=== PATIENT | female | born 1975 | race Caucasian/White ===

== ENCOUNTER 2021-12-27 07:49 | Outpatient (CLI) | payer BC, SELFPAY | END 2021-12-27 07:50 | disposition home or self-care (01) | LOC: WOUND 07:50 | PROVIDERS: PCP Physician Assistant Medical; Visit Provider Nurse Practitioner Family | DX: E11.621 Type 2 diabetes mellitus with foot ulcer (principal); E11.40 Type 2 diabetes mellitus with diabetic neuropathy, unspecified; L97.422 Non-pressure chronic ulcer of left heel and midfoot with fat layer exposed; Z79.84 Long term (current) use of oral hypoglycemic drugs | CPT/HCPCS: 11042 ==

== ENCOUNTER 2022-01-03 07:55 | Outpatient (CLI) | payer BC, SELFPAY | END 2022-01-03 07:56 | disposition home or self-care (01) | LOC: WOUND 07:55 | PROVIDERS: PCP Physician Assistant Medical; Visit Provider Surgery | DX: E11.621 Type 2 diabetes mellitus with foot ulcer (principal); E11.40 Type 2 diabetes mellitus with diabetic neuropathy, unspecified; L97.422 Non-pressure chronic ulcer of left heel and midfoot with fat layer exposed; Z79.84 Long term (current) use of oral hypoglycemic drugs | CPT/HCPCS: 99212 ==

== ENCOUNTER 2022-01-10 08:15 | Outpatient (CLI) | payer BC, SELFPAY | END 2022-01-10 08:16 | disposition home or self-care (01) | LOC: WOUND 08:15 | PROVIDERS: PCP Physician Assistant Medical; Visit Provider Surgery | DX: E11.621 Type 2 diabetes mellitus with foot ulcer (principal); E11.40 Type 2 diabetes mellitus with diabetic neuropathy, unspecified; L97.422 Non-pressure chronic ulcer of left heel and midfoot with fat layer exposed | CPT/HCPCS: 99212 ==

== ENCOUNTER 2022-02-16 13:58 | Outpatient (CLI) | payer BC, SELFPAY ==
[2022-02-16 07:36] LABS: Hematocrit 35.2 % (33.0-51.0); Hemoglobin* 12.3 gm/dL (12.0-16.0); Mean Corpuscular HGB Conc 35 gm/dL (32-36); Mean Corpuscular Hemoglobin 31 pg (26-34); Mean Corpuscular Volume 88 fL (80-100); Platelet Count* 254 K/uL (140-440); Red Blood Count 4.01 m/uL (4.00-5.20); White Blood Count* 6.16 K/uL (4.50-11.00)
[2022-02-16 07:59] LABS: Hemoglobin A1C* 7.8 % (0-5.6)
[2022-02-16 08:00] LABS: Slide Review Reflex No
[2022-02-16 12:43] LABS: Chloride* 101 mmol/L (96-114); Potassium* 4.4 mmol/L (3.6-5.1); Sodium* 137 mmol/L (135-149)
[2022-02-16 12:45] LABS: Cholesterol* 120 mg/dL (90-199); Creatinine* 0.7 mg/dL (0.5-1.5); Estimated Glomerular Filt Rate 107 ml/min
[2022-02-16 12:46] LABS: Blood Urea Nitrogen* 14 mg/dL (5-24); Carbon Dioxide* 23 mmol/L (20-32); Glucose* 288 mg/dL (60-115); HDL Cholesterol* 25 mg/dL (>=50); LDL Cholesterol Calculated 19 mg/dL (<100); Triglycerides* 379 mg/dL (40-149)
[2022-02-16 13:17] LABS: Creatinine Urine 135.1 mg/dL
[2022-02-16 13:21] LABS: Microalbumin Creatinine Ratio 40 mg/g (0-30); Microalbumin Urine 6 mg/dL
== END 2022-02-16 13:59 | disposition home or self-care (01) ==
PROVIDERS: PCP Physician Assistant Medical; Visit Provider Physician Assistant Medical
DX: Z00.00 Encounter for general adult medical examination without abnormal findings (principal); E13.9 Other specified diabetes mellitus without complications; E03.9 Hypothyroidism, unspecified; Z13.6 Encounter for screening for cardiovascular disorders
CPT/HCPCS: 80048; 80061; 82043; 82570; 83036; 84443; 85027

== ENCOUNTER 2023-03-11 08:03 | Outpatient (CLI) | payer BC, SELFPAY | END 2023-03-11 08:04 | disposition home or self-care (01) | LOC: NFLDREF 03-13 02:07 | PROVIDERS: PCP Physician Assistant Medical; Referring Provider Physician Assistant Medical; Visit Provider Physician Assistant Medical | DX: E03.9 Hypothyroidism, unspecified (principal); E11.9 Type 2 diabetes mellitus without complications; E78.1 Pure hyperglyceridemia; I10 Essential (primary) hypertension; F41.9 Anxiety disorder, unspecified | CPT/HCPCS: 80053; 80061; 82043; 82570; 84443; 84481 ==

== ENCOUNTER 2023-07-07 09:39 | Emergency (ER) | payer BC, SELFPAY ==
[2023-07-07 09:44] VITALS: BP 146/88; PULSE 108; RESP 20; TEMP 36.5; O2SAT 98; BMI 29.6
--- NOTE | 2023-07-07 09:58 | CRLHL7_ITS ---
For Patients: As a result of the Century Cures Act, medical imaging exams and procedure reports are released immediately into your electronic medical record. You may view this report before your referring provider. If you have questions, please contact your health care provider. HISTORY: Right upper quadrant abdominal pain. TECHNIQUE: Limited abdominal ultrasound. COMPARISON: No prior. FINDINGS: Pancreas is not well seen secondary to bowel gas. There is fatty infiltration of the liver. Liver is enlarged measuring 20 cm. No focal liver mass is apparent. The extrahepatic bile duct measures 7 mm which is borderline mildly dilated. No intrahepatic biliary ductal dilatation is present. No shadowing gallstones. Minimal sludge is present within the gallbladder lumen. The gallbladder wall thickness is within normal limits. Gallbladder mildly distended. No surrounding fluid. Right kidney unremarkable. No abdominal ascites. IMPRESSION: 1. Minimal sludge within the gallbladder with gallbladder distention. No wall thickening or surrounding fluid. 2. Borderline slightly dilated extrahepatic bile duct measuring 7 mm. No intrahepatic biliary ductal dilatation. 3. Enlarged, fatty infiltrated liver. Dictated by Jake Hanson MD @ 07/07/2023 11:46:01 AM Dictated by: Jake Hanson MD @ 07/07/2023 11:46:07 (Electronically Signed)
--- NOTE | 2023-07-07 10:00 | ED.GENADULT ---
HPI - General Adult General Chief complaint: Abdominal Pain Stated complaint: Abdominal pain Time Seen by Provider: 07/07/23 09:49 History of Present Illness HPI narrative: Patient is a 48 year white female that is had a in the past but no other intra-abdominal surgery presents with upper abdominal pain since last night. She went to bed after she ate pizza and subsequent developed some epigastric and bilateral pain right greater than left in her upper abdomen. Radiates through to her back. She has had no fever, chills, jaundice. Patient denies change in her bowel color or urine. 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 Patient is also hypothyroid. Related Data Home Medications Medication Instructions Recorded Confirmed aspirin 81 mg tablet,delayed 81 mg PO QDAY 02/21/22 07/07/23 release cholecalciferol (vitamin D3) 25 25 mcg PO DAILY 09/13/22 07/07/23 mcg (1,000 unit) tablet Previous Rx's Medication Instructions Recorded lisinopril 20 mg tablet See Rx Instructions .Route 10/10/22 .COMPLEX #90 tabs dulaglutide 1.5 mg/0.5 mL 1.5 mg (0.5 mL) subcut QWEEK 3 12/06/22 subcutaneous pen injector months #6.5 mL (Trulicity) metformin 500 mg tablet,extended See Rx Instructions .Route 12/06/22 release 24 hr .COMPLEX #360 tabs gabapentin 600 mg tablet 600 mg PO QDAY #90 tabs 12/13/22 dulaglutide 3 mg/0.5 mL 3 mg (0.5 mL) subcut QWEEK 3 03/12/23 subcutaneous pen injector months #6.5 mL (Trulicity) peg 3350-electrolytes 236 240 ml PO Q10M #4,000 mL 03/13/23 gram-22.74 gram-6.74 gram-5.86 gram solution (Golytely) Synthroid 88 mcg tablet 88 mcg PO QDAY #90 tabs 03/14/23 (levothyroxine) glipizide 5 mg tablet, extended 5 mg PO QDAY #90 tabs 06/10/23 release 24 hr peg 3350-electrolytes 236 4,000 ml PO DIRECTED #1 mL 07/03/23 gram-22.74 gram-6.74 gram-5.86 gram solution (Golytely) peg 3350-electrolytes 236 240 ml PO ONCE #4,000 mL 07/03/23 gram-22.74 gram-6.74 gram-5.86 gram solution (Golytely) Allergies Allergy/AdvReac Type Severity Reaction Status Date / Time Sulfa Antibiotics Allergy Severe Hives Uncoded 03/12/23 08:29 Sulfamethoxazole / Allergy Severe Hives Uncoded 03/12/23 08:29 trimethoprim Review of Systems Status of ROS: Reports: 6 or more systems reviewed and unremarkable except as noted in History and below [facility] Surgical History History of foot surgery ?Z98.890 - Other specified postprocedural states (ICD-10) History of reduction mammoplasty ?Z98.890 - Other specified postprocedural states (ICD-10) History of section ?Z98.891 - History of uterine scar from previous surgery (ICD-10) Family History Other Diabetes Thyroid disease Social History Narrative: , spouse Robert Non-smoker Smoking Status: Never smoker Do you use any of these nicotine containing products: None How often do you have a drink containing alcohol: monthly or less How often do you have six or more drinks on one occasion: Never AUDIT-C Alcohol total score: 1 Non-prescribed substance use: denies use Little interest or pleasure in doing things: not at all Feeling down, depressed, or hopeless: not at all Exam Narrative: Exam Narrative: Objective vital signs show elevated blood pressure, afebrile, O2 sat is 90% on room air Alert orient x3 nonjaundiced, HEENT is unremarkable Pulse regular Abdomen bowel sounds normoactive, mild epigastric but significant right upper quadrant tenderness , positive Bateman's sign. Lower abdominal exam is benign, no tenderness or masses Extremities are no edema neurologic nonfocal. Const: Vital Signs, click to edit/add: Vital Signs - 24 hr 07/07/23 09:44 Temperature 97.7 F Pulse Rate [Right Pulse Oximeter] 108 H Respiratory Rate 20 Blood Pressure [Ri ght Upper Arm] 146/88 H Pulse Oximetry 98 Oxygen Delivery Me thod Room Air Course Vital Signs Vital signs: Initial Vital Signs Temperature 97.7 F 07/07/23 09:44 Temperature Source Temporal Artery Scan 07/07/23 09:44 Pulse Rate 108 H 07/07/23 09:44 Pulse Rhythm Regular 07/07/23 09:44 Respiratory Rate 20 07/07/23 09:44 Blood Pressure 146/88 H 07/07/23 09:44 Blood Pressure Mean 107 H 07/07/23 09:44 Blood Pressure Position Sitting 07/07/23 09:44 Pulse Oximetry 98 07/07/23 09:44 Oxygen Delivery Method Room Air 07/07/23 09:44 Vital Signs Temperature 97.7 F 07/07/23 09:44 Pulse Rate 108 H 07/07/23 09:44 Respiratory Rate 20 07/07/23 09:44 Blood Pressure 146/88 H 07/07/23 09:44 Pulse Oximetry 98 07/07/23 09:44 Oxygen Delivery Method Room Air 07/07/23 09:44 Temperature 97.7 F 07/07/23 09:44 Pulse Rate 108 H 07/07/23 09:44 Respiratory Rate 20 07/07/23 09:44 Blood Pressure 146/88 H 07/07/23 09:44 Pulse Oximetry 98 07/07/23 09:44 Oxygen Delivery Method Room Air 07/07/23 09:44 Medications Administered Medications: Discontinued Medications Generic Name Dose Route Start Last Admin Trade Name Freq PRN Reason Stop Dose Admin Sodium Chloride 1,000 mls @ 6,000 mls/hr 07/07/23 10:00 07/07/23 11:22 0.9 % Sodium Chloride 1000 Ml IV 07/07/23 10:09 Infused .Q10M ENDER Infusion Lorazepam 0.5 mg 07/07/23 09:59 07/07/23 10:15 Lorazepam 2 Mg/Ml Inj IVP 07/07/23 10:00 0.5 mg ONCE ONE Administration Morphine Sulfate 2 mg 07/07/23 09:57 07/07/23 10:15 Morphine 4 Mg/Ml Inj IVP 07/07/23 09:58 2 mg ONCE ONE Administration Medical Decision Making MDM Narrative Medical decision making narrative: [age] year white female with a history of significant right upper quadrant and epigastric pain after eating last night. Pain is weaning a little bit at this point. She has no fevers or chills. I suspect she got biliary colic. Rule out cholecystitis. Patient will get an ultrasound, labs, will give IV fluid and pain medication and antiemetic. Surgical consult as necessary. Lab Data Labs: Lab Results 07/07/23 Range/Units 10:10 WBC 6.29 (4.50-11.00) K/uL RBC 4.20 (4.00-5.20) m/uL Hgb 12.6 (12.0-16.0) gm/dL Hct 36.5 (33.0-51.0) % MCV 87 (80-100) fL MCH 30 (26-34) pg MCHC 35 (32-36) gm/dL RDW Coeff of Adelita 15.0 (11.5-15.5) % Plt Count 246 (140-440) K/uL Neut % (Auto) 73.5 H (42.0-72.0) % Lymph % (Auto) 18.6 L (20-44) % [place] % (Auto) 5.9 (0.0-11.0) % Eos % (Auto) 1.0 (0.0-7.0) % Baso % (Auto) 0.5 (0.0-3.0) % Neut # (Auto) 4.60 (1.7-7.0) K/uL Lymph # (Auto) 1.20 (0.90-2.90) K/uL [place] # (Auto) 0.40 (0.00-0.90) K/UL Eos # (Auto) 0.06 (0.00-0.50) K/uL Baso # (Auto) 0.03 (0.00-0.30) K/uL Abs Immat Gran (auto) 0.03 (0.00-0.30) K/uL Imm/Tot Granulo (auto) 0.5 % Sodium 134 L (135-149) mmol/L Potassium 4.5 (3.6-5.1) mmol/L Chloride 100 (96-114) mmol/L Carbon Dioxide 21 (20-32) mmol/L Anion Gap 13 (7-15) mEq/L BUN 14 (5-24) mg/dL Creatinine 0.6 (0.5-1.5) mg/dL Estimated Creat Clear 114.41 Estimated GFR 110 ml/min Glucose 316 H (60-115) mg/dL Calcium 9.4 (8.4-10.6) mg/dL Total Bilirubin 2.0 H (0.1-1.5) mg/dL Direct Bilirubin 0.3 (0.0-0.5) mg/dL AST 115 H (12-35) U/L ALT 87 H (4-35) U/L Alkaline Phosphatase 103 (40-150) U/L C-Reactive Protein 0.7 (0.5-1.0) mg/dL Total Protein 8.1 (6.0-8.3) g/dL Albumin 4.9 (3.3-5.0) g/dL Amylase 47 (18-89) U/L HCG, Qual Negative (Negative) Discharge Plan Discharge Clinical Impression: Abdominal pain, acute, Biliary colic Patient Disposition: Home w/ Parent or Adult Condition: Improved Additional Instructions: Recommend follow-up with 1 of our general surgeons to discuss her gallbladder issue. Please give the number for the surgical clinic. Light activity and light diet for the next 48 hours. Would recommend he reschedule her colonoscopy given you been ill with this issue today. Return as needed. May take Tylenol or Advil as needed for discomfort. Surgical clinic - Activity Level: Light activity Discharge Diet: Full Liquid Diet Detail: Advance diet as tolerated a low-fat Prescriptions: No Action cholecalciferol (vitamin D3) 25 mcg (1,000 unit) tablet 25 mcg PO DAILY metformin 500 mg tablet extended release 24 hr See Rx Instructions .ROUTE .COMPLEX Qty: 360 1RF Dose Instruction: TAKE 4 TABLETS BY MOUTH DAILY Rx Instructions: TAKE 4 TABLETS BY MOUTH DAILY Trulicity 1.5 mg/0.5 mL pen injector 1.5 mg subcut QWEEK 90 Days Qty: 6.5 1RF aspirin 81 mg tablet,delayed release (DR/EC) 81 mg PO QDAY Patient Comments: TAKE 1 TABLET (81 MG) BY MOUTH ONCE DAILY WITH A MEAL. Trulicity 3 mg/0.5 mL pen injector 3 mg subcut QWEEK 90 Days Qty: 6.5 1RF lisinopril 20 mg tablet See Rx Instructions .ROUTE .COMPLEX Qty: 90 3RF Dose Instruction: TAKE 1 TABLET BY MOUTH DAILY. Rx Instructions: TAKE 1 TABLET BY MOUTH DAILY. gabapentin 600 mg tablet 600 mg PO QDAY Qty: 90 3RF peg 3350-electrolytes [Golytely] 236-22.74-6.74 -5.86 gram recon soln 240 ml PO Q10M Qty: 4000 0RF Rx Instructions: until fecal effluent is clear levothyroxine [Synthroid] 88 mcg tablet 88 mcg PO QDAY Qty: 90 0RF glipizide 5 mg tablet extended release 24hr 5 mg PO QDAY Qty: 90 0RF peg 3350-electrolytes [Golytely] 236-22.74-6.74 -5.86 gram recon soln 240 ml PO ONCE Qty: 4000 0RF Rx Instructions: until fecal effluent is clear peg 3350-electrolytes [Golytely] 236-22.74-6.74 -5.86 gram recon soln 4,000 ml PO DIRECTED Qty: 1 0RF Rx Instructions: 1 day prior to scopes, between 4 and 6 p.m., drink 8 oz glass every 15 minutes until half a gallon is gone. 6 hours prior to procedure, drink 8 oz glass every 15 minutes until second half gallon is gone. Follow Up/Referrals: Ramesh Castillo PA-C [Primary Care Provider] - Stand Alone Forms: [email or web address] Info Instructions
[2023-07-07] MEDS: 0.9 % SODIUM CHLORIDE 1000 ml 1,000 ML 6000 ML IV (10:10)
[2023-07-07 10:15] LABS: Basophils Absolute Auto 0.03 K/uL (0.00-0.30); Basophils Percent Auto 0.5 % (0.0-3.0); Eosinophils Absolute Auto 0.06 K/uL (0.00-0.50); Hematocrit 36.5 % (33.0-51.0); Hemoglobin* 12.6 gm/dL (12.0-16.0); Immature Granulocytes Abs Auto 0.03 K/uL (0.00-0.30); Immature Granulocytes Pct Auto 0.5 %; Lymphocytes Percent Auto 18.6 % (20-44); Mean Corpuscular HGB Conc 35 gm/dL (32-36); Mean Corpuscular Hemoglobin 30 pg (26-34); Mean Corpuscular Volume 87 fL (80-100); Monocytes Percent Auto 5.9 % (0.0-11.0); Neutrophils Percent Auto 73.5 % (42.0-72.0); Platelet Count* 246 K/uL (140-440); White Blood Count* 6.29 K/uL (4.50-11.00)
[2023-07-07] MEDS: MORPHINE 4 MG/ML INJ 2 MG IVP (10:15)
[2023-07-07] MEDS: LORazepam 2 MG/ML inj 0.5 MG IVP (10:15)
[2023-07-07 10:19] LABS: Slide Review Reflex No
[2023-07-07 10:33] LABS: Albumin* 4.9 g/dL (3.3-5.0); Chloride* 100 mmol/L (96-114)
[2023-07-07 10:34] LABS: Potassium* 4.5 mmol/L (3.6-5.1); Sodium* 134 mmol/L (135-149)
[2023-07-07 10:36] LABS: Amylase* 47 U/L (18-89); Anion Gap 13 mEq/L (7-15); Aspartate Amino Transferase* 115 U/L (12-35); Bilirubin Direct* 0.3 mg/dL (0.0-0.5); Blood Urea Nitrogen* 14 mg/dL (5-24); Carbon Dioxide* 21 mmol/L (20-32); Creatinine* 0.6 mg/dL (0.5-1.5); Est. Creatinine Clearance* 114.41; Estimated Glomerular Filt Rate 110 ml/min; HCG Qualitative Serum* Negative (Negative); Total Protein* 8.1 g/dL (6.0-8.3)
[2023-07-07 10:37] LABS: Alanine Aminotransferase* 87 U/L (4-35); Alkaline Phosphatase* 103 U/L (40-150); Calcium* 9.4 mg/dL (8.4-10.6); Glucose* 316 mg/dL (60-115)
[2023-07-07 10:39] LABS: C Reactive Protein* 0.7 mg/dL (0.5-1.0)
== END 2023-07-07 11:45 | disposition home or self-care (01) ==
PROVIDERS: Emergency Provider Family Medicine; PCP Physician Assistant Medical
DX: R10.13 Epigastric pain (principal); K80.50 Calculus of bile duct without cholangitis or cholecystitis without obstruction
CPT/HCPCS: 36415; 76705; 80048; 80076; 82150; 84703; 85025; 86140; 96374; 96375; 99284; J2060; J2270; J7030

== ENCOUNTER 2023-07-18 15:24 | Outpatient (CLI) | payer BC, SELFPAY | END 2023-07-18 15:25 | disposition home or self-care (01) | PROVIDERS: PCP Physician Assistant Medical; Visit Provider Family Medicine | DX: Z01.818 Encounter for other preprocedural examination (principal); E78.5 Hyperlipidemia, unspecified; E03.9 Hypothyroidism, unspecified; I10 Essential (primary) hypertension; E78.1 Pure hyperglyceridemia | CPT/HCPCS: 80061; 83690; 84443 ==

== ENCOUNTER 2023-07-19 14:27 | Outpatient (CLI) | payer BC, SELFPAY ==
--- NOTE | 2023-07-19 14:30 | CRLHL7_ITS ---
For Patients: As a result of the Century Cures Act, medical imaging exams and procedure reports are released immediately into your electronic medical record. You may view this report before your referring provider. If you have questions, please contact your health care provider. INDICATION: Bile duct calculus without cholangitis TECHNIQUE: An MRCP, including 2D, 3D and maximum intensity projection imaging, was performed. COMPARISON: Right upper quadrant ultrasound of 07/07/2023 FINDINGS: The common bile duct is smoothly marginated and measures up to 6 mm in diameter. A 3 mm filling defect in the distal common bile duct is consistent with the stone. The intrahepatic ducts are normal in caliber and appear to branch and taper in a grossly normal fashion. The gallbladder is negative. The pancreatic duct is normal. Mild fatty change is demonstrated in the liver. The liver is normal in size and shape. The spleen, pancreas and adrenal glands are within normal limits. The kidneys are unremarkable except for a 5 mm right renal parenchymal cysts. No bowel abnormality, lymphadenopathy or free fluid is demonstrated. IMPRESSION: 1. Nonobstructing 3 mm distal common bile duct stone. 2. Mild fatty change in the liver. Dictated by Ken Love MD @ 07/22/2023 9:21:30 AM (Electronically Signed)
== END 2023-07-19 14:28 | disposition home or self-care (01) ==
PROVIDERS: PCP Physician Assistant Medical; Visit Provider Surgery
DX: K80.50 Calculus of bile duct without cholangitis or cholecystitis without obstruction (principal); K76.0 Fatty (change of) liver, not elsewhere classified
CPT/HCPCS: 74181

== ENCOUNTER 2023-07-22 11:23 | Inpatient (IN) | payer BC, SELFPAY ==
[2023-07-22] VITALS (20 sets, daily range): BP systolic 104–129; BP diastolic 63–84; PULSE 88–110; RESP 18–20; TEMP 36.6–37.1; O2SAT 91–97; BMI 28.9; BMI 28.1
--- NOTE | 2023-07-22 11:30 | ED.ABDPAIN ---
HPI - Abdominal Pain General Time Seen by Provider: 11:33 Date Seen: 07/22/23 Chief Complaint: Abdominal Pain Stated Complaint: Gallbladder pain Time Seen by Provider: 07/22/23 11:24 Source: patient and RN notes reviewed Mode of arrival: ambulatory Limitations: no limitations History of Present Illness HPI narrative: This 48-year-old female is coming in with upper abdominal pain, nausea vomiting and diarrhea with known biliary dysfunction. She is scheduled to have a cholecystectomy tomorrow, did have an MRI of her abdomen recently, has not heard back from the surgeon on the report. She states her pain is extreme, is not sleeping because of her abdominal pain. Did just try some broth last night, was vomiting within 10 minutes of taking this in. The pain usually intensifies and is severe by 3:00 a.m. in the morning. She has not slept. She will feel cold and sweaty and hot when the pain is severe and with the vomiting but has not necessarily noted any fever. She is also having episodes of diarrhea when the pain is severe. Patient was initially seen in the ER on July 07, thought to have biliary colic. She had an elevated total bilirubin of 2, an AST of 115, ALT of 87, normal amylase of 47. Abdominal ultrasound at that visit showed minimal sludge within the gallbladder with gallbladder distension. No wall thickening or surrounding fluid. Borderline slightly dilated extrahepatic bile duct measuring 7 mm. No intrahepatic biliary ductal dilation. Enlarged, fatty infiltrated liver. Patient had a follow-up with General surgery on July 17. MRCP was ordered at that time. This MRCP was done on July 19, was read on July 22. It did show nonobstructing 3 mm distal common bile duct stone. Mild fatty change in the liver. MD elicited complaint: abdominal pain Related Data Home Medications Medication Instructions Recorded Confirmed aspirin 81 mg tablet,delayed 81 mg PO QDAY 02/21/22 07/18/23 release cholecalciferol (vitamin D3) 25 25 mcg PO DAILY 09/13/22 07/18/23 mcg (1,000 unit) tablet Previous Rx's Medication Instructions Recorded lisinopril 20 mg tablet See Rx Instructions .Route 10/10/22 .COMPLEX #90 tabs metformin 500 mg tablet,extended See Rx Instructions .Route 12/06/22 release 24 hr .COMPLEX #360 tabs gabapentin 600 mg tablet 600 mg PO QDAY #90 tabs 12/13/22 dulaglutide 3 mg/0.5 mL 3 mg (0.5 mL) subcut QWEEK 3 03/12/23 subcutaneous pen injector months #6.5 mL (Trulicity) Synthroid 88 mcg tablet 88 mcg PO QDAY #90 tabs 03/14/23 (levothyroxine) glipizide 5 mg tablet, extended 5 mg PO QDAY #90 tabs 06/10/23 release 24 hr peg 3350-electrolytes 236 240 ml PO Q10M #4,000 mL 07/17/23 gram-22.74 gram-6.74 gram-5.86 gram solution (Golytely) Allergies Allergy/AdvReac Type Severity Reaction Status Date / Time Sulfa Antibiotics Allergy Severe Hives Uncoded 07/18/23 15:21 Sulfamethoxazole / Allergy Severe Hives Uncoded 07/18/23 15:21 trimethoprim Review of Systems Status of ROS Reports: 6 or more systems reviewed and unremarkable except as noted in History and below PFSH PFSH Surgical History History of foot surgery ?Z98.890 - Other specified postprocedural states (ICD-10) History of reduction mammoplasty ?Z98.890 - Other specified postprocedural states (ICD-10) History of section ?Z98.891 - History of uterine scar from previous surgery (ICD-10) Family History Other Diabetes Thyroid disease Social History Narrative: , spouse Robert Non-smoker Smoking Status: Never smoker Do you use any of these nicotine containing products: None How often do you have a drink containing alcohol: monthly or less How often do you have six or more drinks on one occasion: Never AUDIT-C Alcohol total score: 1 Non-prescribed substance use: denies use Little interest or pleasure in doing things: not at all Feeling down, depressed, or hopeless: not at all Exam Const: Vital Signs, click to edit/add: Vital Signs - 24 hr 07/22/23 11:26 07/22/23 11:38 07/22/23 11:59 Temperature 97.8 F Pulse Rate 102 H Pulse Rate [Pulse Oximeter] 110 H Respiratory Rate 20 Blood Pressure Blood Pressure [Ri ght Upper Arm] 106/64 Pulse Oximetry 96 97 93 Oxygen Delivery Me thod Room Air 07/22/23 12:00 07/22/23 12:01 07/22/23 12:02 Temperature Pulse Rate 101 H 100 100 Pulse Rate [Pulse Oximeter] Respiratory Rate Blood Pressure 118/75 Blood Pressure [Ri ght Upper Arm] Pulse Oximetry 95 95 94 Oxygen Delivery Me thod 07/22/23 12:30 07/22/23 13:00 07/22/23 13:01 Temperature Pulse Rate 99 102 H 99 Pulse Rate [Pulse Oximeter] Respiratory Rate Blood Pressure 104/64 Blood Pressure [Ri ght Upper Arm] Pulse Oximetry 95 93 92 Oxygen Delivery Me thod 07/22/23 13:30 07/22/23 14:00 07/22/23 14:01 Temperature Pulse Rate 98 98 97 Pulse Rate [Pulse Oximeter] Respiratory Rate Blood Pressure 111/72 Blood Pressure [Ri ght Upper Arm] Pulse Oximetry 91 95 96 Oxygen Delivery Me thod Documenting provider has reviewed patient's vital signs: yes Course Reevaluation(s) Time of Reevaluation #1: 12:21 Reevaluation #1: Patient's pain is much better, feeling better. Advised that her WBC is normal but other labs still pending at this time. Time of Reevaluation #2: 14:01 Consultations Consultation #1: Spoke with Dr. Campbell regarding this case. She was planning on doing intraoperative cholangiogram, felt this small 3mm stone is likely to pass. She plans on stopping over to see patient. Likely admit here for surgery tomorrow, will await labs. We have discussed imaging, she does not feel that there is any benefit at this time to any further imaging. Time: 11:43 Consultation #2: Did speak with on-call Dr. Bolaños in GI, right now Sujata/Michelle is on magenta status. We discussed the possibility of having her transfer for ERCP procedure only and then back to us for the cholecystectomy. They are going to work on that and get back to me. 2:05 p.m.: Dr. Elizabeth in GI will be able to take this patient for an ERCP tomorrow, she will transfer up there for the ERCP and then back to us for definitive management. We will keep her NPO. Dr. Bolaños has asked that we check an INR. Time: 13:34 Consultation #3: Our surgeon Dr. Campbell is aware of the plan, she does agree to have this patient go to [place] for an ERCP tomorrow, transfer back here after that and do definitive cholecystectomy when appropriate. I reviewed this with the patient. Have subsequently reviewed with the hospitalist Dr. Wells. She did request a lab add on for triglycerides as patient is still down here in the ED, did make sure that was added on. Patient did require 2 more mg IV morphine for return of pain. We will maintain her NPO. Time: 14:27 Vital Signs Vital signs: Initial Vital Signs Temperature 97.8 F 07/22/23 11:26 Temperature Source Temporal Artery Scan 07/22/23 11:26 Pulse Rate 110 H 07/22/23 11:26 Respiratory Rate 20 07/22/23 11:26 Blood Pressure 106/64 07/22/23 11:26 Blood Pressure Mean 78 07/22/23 11:26 Blood Pressure Position Sitting 07/22/23 11:26 Pulse Oximetry 96 07/22/23 11:26 Oxygen Delivery Method Room Air 07/22/23 11:26 Vital Signs Temperature 97.8 F 07/22/23 11:26 Pulse Rate 110 H 07/22/23 11:26 Respiratory Rate 20 07/22/23 11:26 Blood Pressure 106/64 07/22/23 11:26 Pulse Oximetry 96 07/22/23 11:26 Oxygen Delivery Method Room Air 07/22/23 11:26 Temperature 97.8 F 07/22/23 11:26 Pulse Rate 97 07/22/23 14:01 Respiratory Rate 20 07/22/23 11:26 Blood Pressure 111/72 07/22/23 14:01 Pulse Oximetry 96 07/22/23 14:01 Oxygen Delivery Method Room Air 07/22/23 11:26 Medications Administered Medications: Generic Name Dose Route Start Last Admin Trade Name Freq PRN Reason Stop Dose Admin Lactated Ringer's 1,000 mls @ 125 mls/hr 07/22/23 11:40 07/22/23 11:46 Lactated Ringers 1000 Ml IV 125 mls/hr .Q8H ENDER Administration Morphine Sulfate 2 mg 07/22/23 14:11 07/22/23 14:16 Morphine 2 Mg/Ml Inj IVP 07/22/23 14:12 2 mg ONCE ONE Administration Discontinued Medications Generic Name Dose Route Start Last Admin Trade Name Malik PRN Reason Stop Dose Admin Piperacillin Sod/Tazobactam 100 mls @ 200 mls/hr 07/22/23 13:55 07/22/23 14:05 Sod 3.375 gm/ Sodium Chloride IVPB 07/22/23 13:56 200 mls/hr ONCE ONE Administration Morphine Sulfate 4 mg 07/22/23 11:38 07/22/23 11:47 Morphine 4 Mg/Ml Inj IVP 07/22/23 11:39 4 mg ONCE ONE Administration Ondansetron HCl 4 mg 07/22/23 11:38 07/22/23 11:47 Ondansetron 2 Mg/Ml Inj IVP 07/22/23 11:39 4 mg ONCE ONE Administration MDM - Abdominal Pain Lab Data Attestation: I reviewed the patient's lab results. Labs: Lab Results 07/22/23 07/22/23 07/22/23 Range/Units 11:40 14:10 14:26 WBC 8.53 (4.50-11.00) K/uL RBC 4.32 (4.00-5.20) m/uL Hgb 13.0 (12.0-16.0) gm/dL Hct 38.0 (33.0-51.0) % MCV 88 (80-100) fL MCH 30 (26-34) pg MCHC 34 (32-36) gm/dL RDW Coeff of Adelita 14.4 (11.5-15.5) % Plt Count 269 (140-440) K/uL Neut % (Auto) 86.9 H (42.0-72.0) % Lymph % (Auto) 8.8 L (20-44) % [place] % (Auto) 3.5 (0.0-11.0) % Eos % (Auto) 0.4 (0.0-7.0) % Baso % (Auto) 0.2 (0.0-3.0) % Neut # (Auto) 7.40 H (1.7-7.0) K/uL Lymph # (Auto) 0.80 L (0.90-2.90) K/uL [place] # (Auto) 0.30 (0.00-0.90) K/UL Eos # (Auto) 0.03 (0.00-0.50) K/uL Baso # (Auto) 0.02 (0.00-0.30) K/uL Abs Immat Gran (auto) 0.02 (0.00-0.30) K/uL Imm/Tot Granulo (auto) 0.2 % Sodium 136 (135-149) mmol/L Potassium 4.6 (3.6-5.1) mmol/L Chloride 99 (96-114) mmol/L Carbon Dioxide 17 L (20-32) mmol/L Anion Gap 20 H (7-15) mEq/L BUN 27 H (5-24) mg/dL Creatinine 1.3 (0.5-1.5) mg/dL Estimated Creat Clear 52.81 Estimated GFR 50 ml/min Glucose 298 H (60-115) mg/dL Lactate 1.7 (0.5-1.9) mmol/L Calcium 10.1 (8.4-10.6) mg/dL Total Bilirubin 3.2 H (0.1-1.5) mg/dL Direct Bilirubin 0.9 H (0.0-0.5) mg/dL AST 591 H (12-35) U/L ALT 1213 H (4-35) U/L Alkaline Phosphatase 156 H (40-150) U/L C-Reactive Protein 1.3 H (0.5-1.0) mg/dL Total Protein 7.7 (6.0-8.3) g/dL Albumin 4.6 (3.3-5.0) g/dL Lipase 8282 H (23-300) U/L Lab Acknowledgement Test Added Test Added Critical Care Time Critical Care Time Critical Care Time: No Discharge Plan Discharge Prescriptions: No Action cholecalciferol (vitamin D3) 25 mcg (1,000 unit) tablet 25 mcg PO DAILY metformin 500 mg tablet extended release 24 hr See Rx Instructions .ROUTE .COMPLEX Qty: 360 1RF Dose Instruction: TAKE 4 TABLETS BY MOUTH DAILY Rx Instructions: TAKE 4 TABLETS BY MOUTH DAILY aspirin 81 mg tablet,delayed release (DR/EC) 81 mg PO QDAY Patient Comments: TAKE 1 TABLET (81 MG) BY MOUTH ONCE DAILY WITH A MEAL. Trulicity 3 mg/0.5 mL pen injector 3 mg subcut QWEEK 90 Days Qty: 6.5 1RF peg 3350-electrolytes [Golytely] 236-22.74-6.74 -5.86 gram recon soln 240 ml PO Q10M Qty: 4000 0RF Rx Instructions: Drink a glass of Golytely every 15 min until gone lisinopril 20 mg tablet See Rx Instructions .ROUTE .COMPLEX Qty: 90 3RF Dose Instruction: TAKE 1 TABLET BY MOUTH DAILY. Rx Instructions: TAKE 1 TABLET BY MOUTH DAILY. gabapentin 600 mg tablet 600 mg PO QDAY Qty: 90 3RF levothyroxine [Synthroid] 88 mcg tablet 88 mcg PO QDAY Qty: 90 0RF glipizide 5 mg tablet extended release 24hr 5 mg PO QDAY Qty: 90 0RF
[2023-07-22] MEDS: LACTATED RINGERS 1000 ML 1,000 ML 125 ML IV (11:46)
[2023-07-22] MEDS: ONDANSETRON 2 MG/ML inj 4 MG IVP (11:47)
[2023-07-22] MEDS: MORPHINE 4 MG/ML INJ IVP (11:47)
[2023-07-22 11:49] LABS: Basophils Absolute Auto 0.02 K/uL (0.00-0.30); Basophils Percent Auto 0.2 % (0.0-3.0); Eosinophils Absolute Auto 0.03 K/uL (0.00-0.50); Eosinophils Percent Auto 0.4 % (0.0-7.0); Immature Granulocytes Abs Auto 0.02 K/uL (0.00-0.30); Immature Granulocytes Pct Auto 0.2 %; Lymphocytes Percent Auto 8.8 % (20-44); Mean Corpuscular HGB Conc 34 gm/dL (32-36); Mean Corpuscular Hemoglobin 30 pg (26-34); Mean Corpuscular Volume 88 fL (80-100); Monocytes Percent Auto 3.5 % (0.0-11.0); Neutrophils Percent Auto 86.9 % (42.0-72.0); Platelet Count* 269 K/uL (140-440); RDW Coefficient of Variation % 14.4 % (11.5-15.5); Red Blood Count 4.32 m/uL (4.00-5.20); White Blood Count* 8.53 K/uL (4.50-11.00)
[2023-07-22 11:52] LABS: Slide Review Reflex No
[2023-07-22 12:20] LABS: Bilirubin Direct* 0.9 mg/dL (0.0-0.5)
[2023-07-22 12:24] LABS: C Reactive Protein* 1.3 mg/dL (0.5-1.0)
[2023-07-22 12:42] LABS: Albumin* 4.6 g/dL (3.3-5.0); Chloride* 99 mmol/L (96-114); Potassium* 4.6 mmol/L (3.6-5.1); Sodium* 136 mmol/L (135-149)
[2023-07-22 12:44] LABS: Creatinine* 1.3 mg/dL (0.5-1.5); Est. Creatinine Clearance* 52.81; Estimated Glomerular Filt Rate 50 ml/min
[2023-07-22 12:45] LABS: Alkaline Phosphatase* 156 U/L (40-150); Anion Gap 20 mEq/L (7-15); Aspartate Amino Transferase* 591 U/L (12-35); Bilirubin Total* 3.2 mg/dL (0.1-1.5); Blood Urea Nitrogen* 27 mg/dL (5-24); Calcium* 10.1 mg/dL (8.4-10.6); Carbon Dioxide* 17 mmol/L (20-32); Glucose* 298 mg/dL (60-115); Total Protein* 7.7 g/dL (6.0-8.3)
[2023-07-22 12:56] LABS: Lactate* 1.7 mmol/L (0.5-1.9)
[2023-07-22 12:59] LABS: Alanine Aminotransferase* 1213 U/L (4-35)
[2023-07-22 13:01] LABS: Lipase* 8282 U/L (23-300)
[2023-07-22] MEDS: PIPERACILLIN/TAZOBACTAM 3.375 GM in 0.9 % SODIUM CHLORIDE Mini-bag 100 ML IVPB ×2 (14:05→20:21)
[2023-07-22] MEDS: MORPHINE 2 MG/ML inj IVP (14:16)
[2023-07-22 14:26] LABS: INR 0.95 (0.91-1.10); Prothrombin Time 13.2 Seconds
--- NOTE | 2023-07-22 14:32 | ED.NURSE ---
Received call from nurse at [facility]. They request that the med/surg nurse that takes patient at our hospital call them to coordinate transport for patient up to [place] in the morning for ERCP. Phone number [phone]. Information will be given to med/surg nurse during report.
[2023-07-22 14:39] LABS: Triglycerides* 193 mg/dL (40-149)
--- NOTE | 2023-07-22 14:45 | ED.NURSE ---
Report given to med/surg nurse Mariela. Patient will go to room 279. All questions answered. All belongings with patient upon transfer. with patient at time of transfer.
[2023-07-22] MEDS: HYDROmorphone 0.5 mg/0.5 ml inj IVP (18:55)
[2023-07-22] MEDS: SODIUM CHLORIDE 0.9 % (FLUSH) 10 ML SYRINGE 5 ML IVF (18:57)
[2023-07-22] MEDS: LACTATED RINGERS 1000 ML 1,000 ML 150 ML IV (18:59)
[2023-07-22] MEDS: OXYCODONE 5 MG TABLET PO (20:20)
[2023-07-22] MEDS: MELATONIN 3 MG TABLET PO (20:20)
--- NOTE | 2023-07-22 20:25 | PM.IMHP1 ---
Hospitalist- H&P: HPI History of Present Illness Date Seen: 07/22/23 Chief complaint: Gallbladder pain Narrative: Lisa Alcazar is a 48 year old female who presented through the emergency room tonight for worsening right upper quadrant pain. It is now also associated with nausea and vomiting since last night. Her symptoms started on 07/06/2023 when she had eaten some pizza and went to bed. She then developed epigastric and upper abdominal pain, right greater than left. This pain radiated to her back. She had no fevers or chills with this. She was seen in the ER early the next day. The pain had worn off a little bit by that point. Right upper quadrant ultrasound at that time showed minimal sludge within the gallbladder with gallbladder distension. No wall thickening or surrounding fluid. Borderline slightly dilated extrahepatic bile duct measuring 7 mm. No intrahepatic biliary ductal dilatation. Enlarged fatty infiltrated liver. She was discharged from the emergency room and was asked to follow up with the Surgical Clinic. She saw Dr. Campbell on 07/17/2023. Dr. Campbell ordered an MRCP. This was done 07/19/2023 and showed a 3 mm nonobstructing distal common bile duct stone. Cholecystectomy surgery was planned for 07/23/2023. She saw Lisa Campbell in clinic for preop physical on 07/18/2023. An EKG done in that visit showed sinus tachycardia of 107 beats per minute, R waves in leads 3 and RVF, likely computer over read of inferior infarct, anteroseptal infarct might be correct except for lack of clinical concern. Due to patient's history of hypertension, diabetes, hypothyroidism and hypertriglyceridemia, the case was discussed with Cardiology as a curbside and the recommendation was to proceed with important but elective cholecystectomy based on functional capacity. In the last few days Lisa's abdominal pain has worsened and she is almost constantly nauseous. She has emesis with any intake of food or liquid. She started having more emesis last night after trying some broth. Her pain became very severe by 3 in the morning and she had not slept at all. She also noted cold sweats. She denies fever. Review of Systems Status of ROS: Reports: 10 or more systems reviewed and unremarkable except as noted in History and below [facility] Medical History (Updated 07/22/23 @ 21:49 by Ginny Wells MD) Abnormal EKG ?R94.31 - Abnormal electrocardiogram [ECG] [EKG] (ICD-10) Constipation ?K59.00 - Constipation, unspecified (ICD-10) Melanoma ?C43.9 - Malignant melanoma of skin, unspecified (ICD-10) Insomnia ?G47.00 - Insomnia, unspecified (ICD-10) Anxiety ?F41.9 - Anxiety disorder, unspecified (ICD-10) HTN (hypertension) ?I10 - Essential (primary) hypertension (ICD-10) Type 2 diabetes mellitus ?E11.9 - Type 2 diabetes mellitus without complications (ICD-10) Plantar wart of left foot ?B07.0 - Plantar wart (ICD-10) Hypertriglyceridemia ?E78.1 - Pure hyperglyceridemia (ICD-10) Hidradenitis ?L73.2 - Hidradenitis suppurativa (ICD-10) Diabetic neuropathy ?E11.40 - Type 2 diabetes mellitus with diabetic neuropathy, unspecified (ICD-10) Attention deficit disorder ?F98.8 - Other specified behavioral and emotional disorders with onset usually occurring in childhood and adolescence (ICD-10) Hypothyroidism ?E03.9 - Hypothyroidism, unspecified (ICD-10) Fatty liver ?K76.0 - Fatty (change of) liver, not elsewhere classified (ICD-10) Surgical History History of foot surgery ?Z98.890 - Other specified postprocedural states (ICD-10) History of reduction mammoplasty ?Z98.890 - Other specified postprocedural states (ICD-10) History of section ?Z98.891 - History of uterine scar from previous surgery (ICD-10) Family History Other Diabetes Thyroid disease Social History (Updated 07/22/23 @ 21:11 by Ginny Wells MD) Narrative: , spouse Robert is here with her today 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 Last had alcohol at the end of 2022. Denies recreational drugs. What is your current living situation?: I presently have a place to live Problems where you live: no known problems Problems where you live details: none In the past 12 months, utilities in danger of being shut off: no In past 12 months, lack of transportation kept you from medical appts, meetings, work, or getting things needed for daily living: no In the past 12 mos, have been you worried that your food would run out before you had money to buy more?: never true In the past 12 mos, the food you bought just didn't last and you didn't have money to buy more?: never true Highest level of school completed/degree received: Bachelor's degree Smoking Status: Never smoker Do you use any of these nicotine containing products: None How often do you have a drink containing alcohol: monthly or less How often do you have six or more drinks on one occasion: Never AUDIT-C Alcohol total score: 1 Non-prescribed substance use: denies use Caffeine: Yes How often does anyone, including family, friends and others, physically hurt you: never How often does anyone, including family, friends and others, insult or talk down to you: never How often does anyone, including family, friends and others, threaten you with harm: never How often does anyone, including family, friends and others, scream or curse at you: never Little interest or pleasure in doing things: not at all Feeling down, depressed, or hopeless: not at all service: No Meds Home Medications and Allergies Home Medications Medication Instructions Recorded Confirmed Type aspirin 81 mg tablet,delayed 81 mg PO DAILY 02/21/22 07/22/23 History release cholecalciferol (vitamin D3) 25 25 mcg PO DAILY 09/13/22 07/22/23 History mcg (1,000 unit) tablet gabapentin 600 mg tablet 600 mg PO HS 07/22/23 07/22/23 History glipizide 5 mg tablet, extended 5 mg PO HS 07/22/23 07/22/23 History release 24 hr levothyroxine 88 mcg tablet 88 mcg PO DAILY 07/22/23 07/22/23 History (Synthroid) metformin 500 mg tablet,extended 2,000 mg PO HS 07/22/23 07/22/23 History release 24 hr Home Medication Comments: Lisinopril 20 mg daily Trulicity 3 mg subcutaneously weekly Allergies Allergy/AdvReac Type Severity Reaction Status Date / Time Sulfa Antibiotics Allergy Severe Hives Uncoded 07/18/23 15:21 Sulfamethoxazole / Allergy Severe Hives Uncoded 07/18/23 15:21 trimethoprim Exam Narrative: Exam Narrative: General: No acute distress. Sleepy, easily arousable. Able to stay awake for conversation. Oriented x3. HEENT: Normocephalic atraumatic, pupils equally round and reactive to light and accommodation. Oropharynx clear. Mucous membranes are slightly dry. No cervical lymphadenopathy, thyromegaly or carotid bruits. No JVD. Cardiovascular: Regular rate and rhythm. No murmurs, gallops, or rubs. Chest: No increased work of breathing. Clear to auscultation bilaterally. No crackles or wheezes. Abdomen: Bowel sounds present. Obese, soft, nondistended, tender in the epigastrium and right upper quadrant, more so in the latter. Liver edge is tender. Bateman sign is positive. No hepatosplenomegaly or masses. Extremities: No edema, no cyanosis or clubbing. Skin: No jaundice, no pallor, no rashes. Const: Vital Signs, click to edit/add: Vital Signs - 24 hr 07/22/23 11:26 07/22/23 11:38 07/22/23 11:59 Temperature 97.8 F Pulse Rate 102 H Pulse Rate [Pulse Oximeter] 110 H Pulse Rate [Right Radial] Respiratory Rate 20 Blood Pressure Blood Pressure [Le ft Arm] Blood Pressure [Ri ght Upper Arm] 106/64 Pulse Oximetry 96 97 93 Oxygen Delivery Me thod Room Air 07/22/23 12:00 07/22/23 12:01 07/22/23 12:02 Temperature Pulse Rate 101 H 100 100 Pulse Rate [Pulse Oximeter] Pulse Rate [Right Radial] Respiratory Rate Blood Pressure 118/75 Blood Pressure [Le ft Arm] Blood Pressure [Ri ght Upper Arm] Pulse Oximetry 95 95 94 Oxygen Delivery Me thod 07/22/23 12:30 07/22/23 13:00 07/22/23 13:01 Temperature Pulse Rate 99 102 H 99 Pulse Rate [Pulse Oximeter] Pulse Rate [Right Radial] Respiratory Rate Blood Pressure 104/64 Blood Pressure [Le ft Arm] Blood Pressure [Ri ght Upper Arm] Pulse Oximetry 95 93 92 Oxygen Delivery Me thod 07/22/23 13:30 07/22/23 14:00 07/22/23 14:01 Temperature Pulse Rate 98 98 97 Pulse Rate [Pulse Oximeter] Pulse Rate [Right Radial] Respiratory Rate Blood Pressure 111/72 Blood Pressure [Le ft Arm] Blood Pressure [Ri ght Upper Arm] Pulse Oximetry 91 95 96 Oxygen Delivery Me thod 07/22/23 14:02 07/22/23 14:30 07/22/23 14:57 Temperature Pulse Rate 97 95 Pulse Rate [Pulse Oximeter] Pulse Rate [Right Radial] Respiratory Rate 18 Blood Pressure Blood Pressure [Le ft Arm] Blood Pressure [Ri ght Upper Arm] Pulse Oximetry 95 96 94 Oxygen Delivery Me thod Room Air 07/22/23 15:00 07/22/23 15:06 07/22/23 15:54 Temperature 98.8 F Pulse Rate Pulse Rate [Pulse Oximeter] Pulse Rate [Right Radial] 97 Respiratory Rate 18 20 Blood Pressure Blood Pressure [Le ft Arm] 105/63 Blood Pressure [Ri ght Upper Arm] Pulse Oximetry 94 96 Oxygen Delivery Me thod Room Air 07/22/23 19:19 Temperature 98.8 F Pulse Rate Pulse Rate [Pulse Oximeter] Pulse Rate [Right Radial] 97 Respiratory Rate 20 Blood Pressure Blood Pressure [Le ft Arm] 117/84 Blood Pressure [Ri ght Upper Arm] Pulse Oximetry 93 Oxygen Delivery Me thod Room Air Hospitalist - H&P: Result Labs Labs: Short CBC 07/22/23 Range/Units 11:40 WBC 8.53 (4.50-11.00) K/uL Hgb 13.0 (12.0-16.0) gm/dL Hct 38.0 (33.0-51.0) % Plt Count 269 (140-440) K/uL BMP 07/22/23 11:40 Sodium 136 Potassium 4.6 Chloride 99 Carbon Dioxide 17 L BUN 27 H Creatinine 1.3 Glucose 298 H Calcium 10.1 Liver Function 07/22/23 Range/Units 11:40 Total Bilirubin 3.2 H (0.1-1.5) mg/dL Direct Bilirubin 0.9 H (0.0-0.5) mg/dL AST 591 H (12-35) U/L ALT 1213 H (4-35) U/L Alkaline Phosphatase 156 H (40-150) U/L Albumin 4.6 (3.3-5.0) g/dL Assessment and Plan Assessment and plan (1) Acute pancreatitis: Problem comment: - Lipase 07/18/23 was 93 and is 8,282 today (07/22) Status: Acute (2) Acute cholecystitis: Status: Acute (3) Choledocholithiasis: Status: Acute (4) HTN (hypertension): Status: Chronic (5) Type 2 diabetes mellitus: Problem comment: - HgbA1C 6.8% on 07/18/23 Status: Chronic (6) Hypothyroidism: Problem comment: - 07/18/23 TSH 1.27 Status: Chronic (7) Hypertriglyceridemia: Problem comment: - 07/22/23 TG 193 Status: Chronic (8) Abnormal EKG: Status: Chronic (9) Anxiety: Status: Chronic (10) Insomnia: Status: Chronic (11) RICKIE (acute kidney injury): Problem comment: - Cr 1.3 today 07/22, baseline is 0.6-0.7 Status: Acute Plan 48-year-old female with a week and half of worsening abdominal pain, nausea and vomiting secondary to acute gallstone pancreatitis, hepatitis, and cholecystitis secondary to choledocholithiasis. She also has RICKIE likely from dehydration. She is admitted to the hospital for treatment with bowel rest, IV fluids, IV Zosyn, narcotics for pain control, and Q 6 hour Accu-Cheks with the insulin sliding scale while NPO. Dr. Bolaños from GI at [facility] has accepted this patient for an ERCP only at [place] tomorrow morning at 11:40 a.m.. After that she will come back here and continue to receive treatment for acute pancreatitis and when that has improved, Dr. Campbell will perform cholecystectomy. Patient does have a history of anxiety and insomnia and was asking for something for sleep tonight despite her already being very sleepy with the pain medication. I did order p.r.n. melatonin for insomnia. Her blood pressures have been soft, but not low and so I am holding lisinopril. Continue outpatient levothyroxine dosing for hypothyroidism. Check CBC, CMP, lipase, CRP in the morning.
[2023-07-23] MEDS: MELATONIN 3 MG TABLET PO
[2023-07-23] MEDS: SODIUM CHLORIDE 0.9 % (FLUSH) 10 ML SYRINGE 5 ML IVF ×2 (00:01→08:30)
[2023-07-23] MEDS: PIPERACILLIN/TAZOBACTAM 3.375 GM in 0.9 % SODIUM CHLORIDE Mini-bag 100 ML IVPB ×2 (02:05→08:30)
[2023-07-23] MEDS: OXYCODONE 5 MG TABLET PO ×2 (02:05→08:36)
[2023-07-23 02:15] VITALS: BP 116/61; PULSE 77; RESP 18; TEMP 36.7; O2SAT 96
[2023-07-23] MEDS: LACTATED RINGERS 1000 ML 1,000 ML 150 ML IV ×2 (03:19→10:38)
--- NOTE | 2023-07-23 05:17 | PC.NURSE ---
Pt alert and oriented x3. Afebrile. Pt reports 5/10 pain in abdomen, pain managed with PRN medications. Pt reports difficulties sleeping, melatonin given with little relief, updated MD, ordered HS Ambien. Pt decided to hold on the Ambien due to time of night and worry about drowsiness in morning and take it tomorrow night with HS medications. Pt is up independent in room, voiding, and NPO since 0000. Pt slept intermittently throughout night.
[2023-07-23] MEDS: LEVOTHYROXINE 88 MCG TABLET PO (06:19)
[2023-07-23 06:47] LABS: Basophils Absolute Auto 0.02 K/uL (0.00-0.30); Basophils Percent Auto 0.4 % (0.0-3.0); Eosinophils Absolute Auto 0.16 K/uL (0.00-0.50); Eosinophils Percent Auto 3.5 % (0.0-7.0); Hematocrit 31.6 % (33.0-51.0); Hemoglobin* 10.4 gm/dL (12.0-16.0); Immature Granulocytes Abs Auto 0.01 K/uL (0.00-0.30); Immature Granulocytes Pct Auto 0.2 %; Lymphocytes Absolute Auto 1.66 K/uL (0.90-2.90); Lymphocytes Percent Auto 36.5 % (20-44); Mean Corpuscular HGB Conc 33 gm/dL (32-36); Mean Corpuscular Hemoglobin 30 pg (26-34); Mean Corpuscular Volume 92 fL (80-100); Monocytes Percent Auto 5.7 % (0.0-11.0); Neutrophils Absolute Auto 2.44 K/uL (1.7-7.0); Neutrophils Percent Auto 53.7 % (42.0-72.0); Platelet Count* 188 K/uL (140-440); RDW Coefficient of Variation % 14.6 % (11.5-15.5); Red Blood Count 3.45 m/uL (4.00-5.20); White Blood Count* 4.55 K/uL (4.50-11.00)
[2023-07-23 07:07] LABS: Slide Review Reflex No
[2023-07-23 07:16] LABS: HCG Qualitative Serum* Negative (Negative)
[2023-07-23 07:27] LABS: Albumin* 4.1 g/dL (3.3-5.0)
[2023-07-23 07:28] LABS: Chloride* 102 mmol/L (96-114); Potassium* 4.1 mmol/L (3.6-5.1); Sodium* 139 mmol/L (135-149)
[2023-07-23 07:30] LABS: Alkaline Phosphatase* 103 U/L (40-150); Anion Gap 9 mEq/L (7-15); Aspartate Amino Transferase* 208 U/L (12-35); Carbon Dioxide* 28 mmol/L (20-32); Creatinine* 0.8 mg/dL (0.5-1.5); Est. Creatinine Clearance* 85.81; Estimated Glomerular Filt Rate 90 ml/min; Total Protein* 6.9 g/dL (6.0-8.3)
[2023-07-23 07:31] LABS: Blood Urea Nitrogen* 17 mg/dL (5-24); Calcium* 9.1 mg/dL (8.4-10.6); Glucose* 177 mg/dL (60-115); Lipase* 203 U/L (23-300)
[2023-07-23 08:18] LABS: Alanine Aminotransferase* 781 U/L (4-35)
[2023-07-23 08:28] VITALS: BP 120/75; PULSE 67; RESP 16; TEMP 37; O2SAT 95
[2023-07-23] MEDS: 0.9 % SODIUM CHLORIDE 250 ml IV (08:30)
--- NOTE | 2023-07-23 09:05 | PM.GSCN ---
History of Present Illness Consult details Date Seen: 07/23/23 Consult date: 07/23/23 Narrative: 48-year-old female is admitted to the hospital with for choledocholithiasis and I was asked by Dr. Cotton to see her in consultation. Patient is well known to me from her recurrent episodes of right upper quadrant pain. She was seen in clinic and was scheduled for laparoscopic cholecystectomy with intraoperative cholangiogram today. She had MRCP done last week that showed a 3 mm common bile duct stone. On Saturday patient's pain became severe and she was not able to tolerated at home. Patient presented to the emergency room. Patient's workup in the emergency room was personally reviewed by me. Her total bilirubin was elevated to 3.2 with direct bilirubin of 0.9. She had transaminitis and her lipase was elevated to over 8000. Gastroenterology at the outside hospital was contacted and ERCP was arranged for today. Patient states that her pain is significantly improved. She is going for her ERCP today. Review of Systems Narrative: General: no fevers HENT: no problems swallowing CV: no shortness of breath Resp: no cough GI: No nausea, vomiting, abdominal pain : no dysuria, no increased urinary frequency, no hematuria Skin: no new rashes Musculoskeletal: no back pain Neuro: no muscle weakness Psyche: no depression, no anxiety [facility] Medical History (Updated 07/22/23 @ 21:49 by Ginny Wells MD) Abnormal EKG ?R94.31 - Abnormal electrocardiogram [ECG] [EKG] (ICD-10) Constipation ?K59.00 - Constipation, unspecified (ICD-10) Melanoma ?C43.9 - Malignant melanoma of skin, unspecified (ICD-10) Insomnia ?G47.00 - Insomnia, unspecified (ICD-10) Anxiety ?F41.9 - Anxiety disorder, unspecified (ICD-10) HTN (hypertension) ?I10 - Essential (primary) hypertension (ICD-10) Type 2 diabetes mellitus ?E11.9 - Type 2 diabetes mellitus without complications (ICD-10) Plantar wart of left foot ?B07.0 - Plantar wart (ICD-10) Hypertriglyceridemia ?E78.1 - Pure hyperglyceridemia (ICD-10) Hidradenitis ?L73.2 - Hidradenitis suppurativa (ICD-10) Diabetic neuropathy ?E11.40 - Type 2 diabetes mellitus with diabetic neuropathy, unspecified (ICD-10) Attention deficit disorder ?F98.8 - Other specified behavioral and emotional disorders with onset usually occurring in childhood and adolescence (ICD-10) Hypothyroidism ?E03.9 - Hypothyroidism, unspecified (ICD-10) Fatty liver ?K76.0 - Fatty (change of) liver, not elsewhere classified (ICD-10) Surgical History History of foot surgery ?Z98.890 - Other specified postprocedural states (ICD-10) History of reduction mammoplasty ?Z98.890 - Other specified postprocedural states (ICD-10) History of section ?Z98.891 - History of uterine scar from previous surgery (ICD-10) Family History Other Diabetes Thyroid disease Social History (Updated 07/22/23 @ 21:11 by Ginny Wells MD) Narrative: , spouse Robert is here with her today Self employed as a [employer] and [email or web address] Never-smoker Drinks alcohol a few drinks about once a month. Last had alcohol at the end of 2022. Denies recreational drugs. What is your current living situation?: I presently have a place to live Problems where you live: no known problems Problems where you live details: none In the past 12 months, utilities in danger of being shut off: no In past 12 months, lack of transportation kept you from medical appts, meetings, work, or getting things needed for daily living: no In the past 12 mos, have been you worried that your food would run out before you had money to buy more?: never true In the past 12 mos, the food you bought just didn't last and you didn't have money to buy more?: never true Highest level of school completed/degree received: Bachelor's degree Smoking Status: Never smoker Do you use any of these nicotine containing products: None How often do you have a drink containing alcohol: monthly or less How often do you have six or more drinks on one occasion: Never AUDIT-C Alcohol total score: 1 Non-prescribed substance use: denies use Caffeine: Yes How often does anyone, including family, friends and others, physically hurt you: never How often does anyone, including family, friends and others, insult or talk down to you: never How often does anyone, including family, friends and others, threaten you with harm: never How often does anyone, including family, friends and others, scream or curse at you: never Little interest or pleasure in doing things: not at all Feeling down, depressed, or hopeless: not at all service: No Meds Home Medications and Allergies Home Medications Medication Instructions Recorded Confirmed Type aspirin 81 mg tablet,delayed 81 mg PO DAILY 02/21/22 07/22/23 History release cholecalciferol (vitamin D3) 25 25 mcg PO DAILY 09/13/22 07/22/23 History mcg (1,000 unit) tablet gabapentin 600 mg tablet 600 mg PO HS 07/22/23 07/22/23 History glipizide 5 mg tablet, extended 5 mg PO HS 07/22/23 07/22/23 History release 24 hr levothyroxine 88 mcg tablet 88 mcg PO DAILY 07/22/23 07/22/23 History (Synthroid) metformin 500 mg tablet,extended 2,000 mg PO HS 07/22/23 07/22/23 History release 24 hr Allergies Allergy/AdvReac Type Severity Reaction Status Date / Time Sulfa Antibiotics Allergy Severe Hives Uncoded 07/18/23 15:21 Sulfamethoxazole / Allergy Severe Hives Uncoded 07/18/23 15:21 trimethoprim Exam Narrative: Exam Narrative: General appearance: Alert, cooperative, and in no distress Pulmonary: Chest symmetric, lungs clear bilaterally Cardiovascular Heart: Regular rate and rhythm, S1, S2, no murmurs/rubs/gallops Gastrointestinal Abdominal: soft, not distended, tender to palpation in the right lower quadrant. Tenderness in epigastrium has improved. Skin: Normal skin color, texture, and turgor. No rashes or lesions. Psychiatric: Alert, cooperative, normal affect. Const: Vital Signs, click to edit/add: Vital Signs - 24 hr 07/22/23 11:26 07/22/23 11:38 07/22/23 11:59 Temperature 97.8 F Pulse Rate 102 H Pulse Rate [Pulse Oximeter] 110 H Pulse Rate [Right Radial] Respiratory Rate 20 Blood Pressure Blood Pressure [Le ft Arm] Blood Pressure [Ri ght Upper Arm] 106/64 Pulse Oximetry 96 97 93 Oxygen Delivery Me thod Room Air 07/22/23 12:00 07/22/23 12:01 07/22/23 12:02 Temperature Pulse Rate 101 H 100 100 Pulse Rate [Pulse Oximeter] Pulse Rate [Right Radial] Respiratory Rate Blood Pressure 118/75 Blood Pressure [Le ft Arm] Blood Pressure [Ri ght Upper Arm] Pulse Oximetry 95 95 94 Oxygen Delivery Me thod 07/22/23 12:30 07/22/23 13:00 07/22/23 13:01 Temperature Pulse Rate 99 102 H 99 Pulse Rate [Pulse Oximeter] Pulse Rate [Right Radial] Respiratory Rate Blood Pressure 104/64 Blood Pressure [Le ft Arm] Blood Pressure [Ri ght Upper Arm] Pulse Oximetry 95 93 92 Oxygen Delivery Me thod 07/22/23 13:30 07/22/23 14:00 07/22/23 14:01 Temperature Pulse Rate 98 98 97 Pulse Rate [Pulse Oximeter] Pulse Rate [Right Radial] Respiratory Rate Blood Pressure 111/72 Blood Pressure [Le ft Arm] Blood Pressure [Ri ght Upper Arm] Pulse Oximetry 91 95 96 Oxygen Delivery Me thod 07/22/23 14:02 07/22/23 14:30 07/22/23 14:57 Temperature Pulse Rate 97 95 Pulse Rate [Pulse Oximeter] Pulse Rate [Right Radial] Respiratory Rate 18 Blood Pressure Blood Pressure [Le ft Arm] Blood Pressure [Ri ght Upper Arm] Pulse Oximetry 95 96 94 Oxygen Delivery Me thod Room Air 07/22/23 15:00 07/22/23 15:06 07/22/23 15:54 Temperature 98.8 F Pulse Rate Pulse Rate [Pulse Oximeter] Pulse Rate [Right Radial] 97 Respiratory Rate 18 20 Blood Pressure Blood Pressure [Le ft Arm] 105/63 Blood Pressure [Ri ght Upper Arm] Pulse Oximetry 94 96 Oxygen Delivery Me thod Room Air 07/22/23 19:19 07/22/23 23:00 07/22/23 23:00 Temperature 98.8 F Pulse Rate Pulse Rate [Pulse Oximeter] Pulse Rate [Right Radial] 97 88 Respiratory Rate 20 18 18 Blood Pressure Blood Pressure [Le ft Arm] 117/84 Blood Pressure [Ri ght Upper Arm] Pulse Oximetry 93 93 Oxygen Delivery Me thod Room Air Room Air 07/22/23 23:00 07/23/23 02:15 07/23/23 08:28 Temperature 98.2 F 98.1 F Pulse Rate Pulse Rate [Pulse Oximeter] Pulse Rate [Right Radial] 88 77 Respiratory Rate 18 18 Blood Pressure Blood Pressure [Le ft Arm] 129/72 116/61 Blood Pressure [Ri ght Upper Arm] Pulse Oximetry 93 96 95 Oxygen Delivery Me thod Room Air Room Air Room Air 07/23/23 08:28 Temperature 98.6 F Pulse Rate Pulse Rate [Pulse Oximeter] Pulse Rate [Right Radial] 67 Respiratory Rate 16 Blood Pressure Blood Pressure [Le ft Arm] 120/75 Blood Pressure [Ri ght Upper Arm] Pulse Oximetry 95 Oxygen Delivery Me thod Room Air Results Labs Labs: Abnormal lab results 07/22/23 07/23/23 Range/Units 11:40 06:15 RBC 3.45 L (4.00-5.20) m/uL Hgb 10.4 L (12.0-16.0) gm/dL Hct 31.6 L (33.0-51.0) % Neut % (Auto) 86.9 H (42.0-72.0) % Lymph % (Auto) 8.8 L (20-44) % Neut # (Auto) 7.40 H (1.7-7.0) K/uL Lymph # (Auto) 0.80 L (0.90-2.90) K/uL Carbon Dioxide 17 L (20-32) mmol/L Anion Gap 20 H (7-15) mEq/L BUN 27 H (5-24) mg/dL Glucose 298 H 177 H (60-115) mg/dL Total Bilirubin 3.2 H 2.0 H (0.1-1.5) mg/dL Direct Bilirubin 0.9 H (0.0-0.5) mg/dL AST 591 H 208 H (12-35) U/L ALT 1213 H 781 H (4-35) U/L Alkaline Phosphatase 156 H (40-150) U/L C-Reactive Protein 1.3 H (0.5-1.0) mg/dL Triglycerides 193 H (40-149) mg/dL Lipase 8282 H (23-300) U/L Diabetes panel 07/22/23 07/23/23 Range/Units 11:40 06:15 Sodium 136 139 (135-149) mmol/L Potassium 4.6 4.1 (3.6-5.1) mmol/L Chloride 99 102 (96-114) mmol/L Carbon Dioxide 17 L 28 (20-32) mmol/L BUN 27 H 17 (5-24) mg/dL Creatinine 1.3 0.8 (0.5-1.5) mg/dL Glucose 298 H 177 H (60-115) mg/dL Calcium 10.1 9.1 (8.4-10.6) mg/dL AST 591 H 208 H (12-35) U/L ALT 1213 H 781 H (4-35) U/L Alkaline Phosphatase 156 H 103 (40-150) U/L Total Protein 7.7 6.9 (6.0-8.3) g/dL Albumin 4.6 4.1 (3.3-5.0) g/dL Triglycerides 193 H (40-149) mg/dL Calcium panel 07/22/23 07/23/23 Range/Units 11:40 06:15 Calcium 10.1 9.1 (8.4-10.6) mg/dL Albumin 4.6 4.1 (3.3-5.0) g/dL Pituitary panel 07/22/23 07/23/23 Range/Units 11:40 06:15 Sodium 136 139 (135-149) mmol/L Potassium 4.6 4.1 (3.6-5.1) mmol/L Chloride 99 102 (96-114) mmol/L Carbon Dioxide 17 L 28 (20-32) mmol/L BUN 27 H 17 (5-24) mg/dL Creatinine 1.3 0.8 (0.5-1.5) mg/dL Glucose 298 H 177 H (60-115) mg/dL Calcium 10.1 9.1 (8.4-10.6) mg/dL Adrenal panel 07/22/23 07/23/23 Range/Units 11:40 06:15 Sodium 136 139 (135-149) mmol/L Potassium 4.6 4.1 (3.6-5.1) mmol/L Chloride 99 102 (96-114) mmol/L Carbon Dioxide 17 L 28 (20-32) mmol/L BUN 27 H 17 (5-24) mg/dL Creatinine 1.3 0.8 (0.5-1.5) mg/dL Glucose 298 H 177 H (60-115) mg/dL Calcium 10.1 9.1 (8.4-10.6) mg/dL Total Bilirubin 3.2 H 2.0 H (0.1-1.5) mg/dL AST 591 H 208 H (12-35) U/L ALT 1213 H 781 H (4-35) U/L Alkaline Phosphatase 156 H 103 (40-150) U/L Total Protein 7.7 6.9 (6.0-8.3) g/dL Albumin 4.6 4.1 (3.3-5.0) g/dL All other labs normal. Progress Note:A&P Assessment and plan (1) Choledocholithiasis: Status: Acute Assessment and Plan: 48-year-old female admitted to the hospital with symptomatic cholelithiasis, choledocholithiasis, and possible acute cholecystitis. I discussed with the patient that her lipase has improved to normal today. Her liver function tests are slightly improved. Patient will travel for ERCP to the outside hospital and then return to our [facility] after the procedure. We will recheck the labs tomorrow morning, and if those are decreasing or normal, will plan on doing laparoscopic cholecystectomy tomorrow. (2) Acute pancreatitis: Status: Acute
[2023-07-23] MEDS: HYDROmorphone 0.5 mg/0.5 ml inj IVP ×2 (10:39)
--- NOTE | 2023-07-23 16:08 | P.DS_ITS ---
DS: Providers Provider Date Seen: 07/23/23 Date of admission: 07/22/23 15:53 Primary care physician: Ramesh Castillo PA-C Admitting Clinician: Ken Ahn MD Attending Physician on discharge: Ken Ahn MD Date of Discharge: 07/23/23 DS: Diagnosis Discharge Diagnosis (1) Choledocholithiasis: Status: Acute Problem details: Patient admitted with choledocholithiasis. Plan was to admit overnight here with transfer to [facility] for ERCP and then transfer back to [place] for ongoing care and presumed cholecystectomy. Patient clinically improved today and transferred [place] for ERCP. Pending return to [facility] (2) Acute pancreatitis: Status: Acute Problem details: - Lipase 07/18/23 was 93 and is 8,282 today (07/22) (3) Acute cholecystitis: Status: Acute (4) Type 2 diabetes mellitus: Status: Chronic Problem details: - HgbA1C 6.8% on 07/18/23 (5) RICKIE (acute kidney injury): Status: Acute Problem details: Creatinine 1.3 on admission. 0.8 on discharge, back to baseline DS: Summary Hospital Course Hospital Course: Lisa Alcazar is a 48 year old female who presented through the emergency room tonight for worsening right upper quadrant pain. It is now also associated with nausea and vomiting since last night. Her symptoms started on 07/06/2023 when she had eaten some pizza and went to bed. She then developed epigastric and upper abdominal pain, right greater than left. This pain radiated to her back. She had no fevers or chills with this. She was seen in the ER early the next day. The pain had worn off a little bit by that point. Right upper quadrant ultrasound at that time showed minimal sludge within the gallbladder with gallbladder distension. No wall thickening or surrounding fluid. Borderline slightly dilated extrahepatic bile duct measuring 7 mm. No intrahepatic biliary ductal dilatation. Enlarged fatty infiltrated liver. She was discharged from the emergency room and was asked to follow up with the Surgical Clinic. She saw Dr. Campbell on 07/17/2023. Dr. Campbell ordered an MRCP. This was done 07/19/2023 and showed a 3 mm nonobstructing distal common bile duct stone. Cholecystectomy surgery was planned for 07/23/2023. She saw Lisa Campbell in clinic for preop physical on 07/18/2023. An EKG done in that visit showed sinus tachycardia of 107 beats per minute, R waves in leads 3 and RVF, likely computer over read of inferior infarct, anteroseptal infarct might be correct except for lack of clinical concern. Due to patient's history of hypertension, diabetes, hypothyroidism and hypertriglyceridemia, the case was discussed with Cardiology as a curbside and the recommendation was to proceed with important but elective cholecystectomy based on functional capacity. In the last few days Lisa's abdominal pain has worsened and she is almost constantly nauseous. She has emesis with any intake of food or liquid. She started having more emesis last night after trying some broth. Her pain became very severe by 3 in the morning and she had not slept at all. She also noted cold sweats. She denies fever. Overnight patient had significant improvement in her symptoms. Labs also improved. Today she was transferred to [facility] for ERCP and anticipated return to [place] for ongoing care and presumed cholecystectomy tomorrow. Status at Discharge Functional status at discharge: independent ambulation Overall status at discharge: patient is not back to baseline Time Spent with Patient Time attestation: Total time spent providing and/or coordinating discharge services: 50 minutes Time spent: Greater than 30 minutes Exam Narrative: Exam Narrative: She is alert and appears in no distress. Respirations are clear to auscultation. Cardiovascular: S1, S2, regular rate and rhythm. Abdomen: Bowel sounds active. Abdomen is soft with mild right upper quadrant tenderness. No other tenderness or mass. Good perfusion all 4 extremities. Const: Vital Signs, click to edit/add: Vital Signs - 24 hr 07/22/23 19:19 07/22/23 23:00 07/22/23 23:00 Temperature 98.8 F Pulse Rate [Right Radial] 97 88 Respiratory Rate 20 18 18 Blood Pressure [Le ft Arm] 117/84 Pulse Oximetry 93 93 Oxygen Delivery Me thod Room Air Room Air 07/22/23 23:00 07/23/23 02:15 07/23/23 08:28 Temperature 98.2 F 98.1 F Pulse Rate [Right Radial] 88 77 Respiratory Rate 18 18 Blood Pressure [Le ft Arm] 129/72 116/61 Pulse Oximetry 93 96 95 Oxygen Delivery Me thod Room Air Room Air Room Air 07/23/23 08:28 Temperature 98.6 F Pulse Rate [Right Radial] 67 Respiratory Rate 16 Blood Pressure [Le ft Arm] 120/75 Pulse Oximetry 95 Oxygen Delivery Me thod Room Air Documenting provider has reviewed patient's vital signs: yes DS: Data Data Completed and Pending Labs on day of discharge: Labs from last 24 hours 07/23/23 07/23/23 07:03 06:15 WBC 4.55 RBC 3.45 L Hgb 10.4 L Hct 31.6 L MCV 92 MCH 30 MCHC 33 RDW Coeff of Adelita 14.6 Plt Count 188 Neut % (Auto) 53.7 Lymph % (Auto) 36.5 Burnet % (Auto) 5.7 Eos % (Auto) 3.5 Baso % (Auto) 0.4 Neut # (Auto) 2.44 Lymph # (Auto) 1.66 Burnet # (Auto) 0.30 Eos # (Auto) 0.16 Baso # (Auto) 0.02 Abs Immat Gran (auto) 0.01 Imm/Tot Granulo (auto) 0.2 Sodium 139 Potassium 4.1 Chloride 102 Carbon Dioxide 28 Anion Gap 9 BUN 17 Creatinine 0.8 Estimated Creat Clear 85.81 Estimated GFR 90 Glucose 177 H Calcium 9.1 Total Bilirubin 2.0 H AST 208 H ALT 781 H Alkaline Phosphatase 103 C-Reactive Protein 1.0 Total Protein 6.9 Albumin 4.1 Lipase 203 HCG, Qual Negative Lab Acknowledgement Test Added Imaging MRI - abdomen: Radiologist's impression: INDICATION: Bile duct calculus without cholangitis TECHNIQUE: An MRCP, including 2D, 3D and maximum intensity projection imaging, was performed. COMPARISON: Right upper quadrant ultrasound of 07/07/2023 FINDINGS: The common bile duct is smoothly marginated and measures up to 6 mm in diameter. A 3 mm filling defect in the distal common bile duct is consistent with the stone. The intrahepatic ducts are normal in caliber and appear to branch and taper in a grossly normal fashion. The gallbladder is negative. The pancreatic duct is normal. Mild fatty change is demonstrated in the liver. The liver is normal in size and shape. The spleen, pancreas and adrenal glands are within normal limits. The kidneys are unremarkable except for a 5 mm right renal parenchymal cysts. No bowel abnormality, lymphadenopathy or free fluid is demonstrated. IMPRESSION: 1. Nonobstructing 3 mm distal common bile duct stone. 2. Mild fatty change in the liver. Discharge Plan Discharge Disposition: [facility] Date of Admission: 07/22/23 15:53 Attending Provider on Discharge: Ken Ahn Primary Care Provider: Ramesh Castillo Discharge Orders: Transfer of Care to Other Hospital (ORDER); Ordered 07/23/23 Ordered By: Ken Ahn
== END 2023-07-23 11:25 | disposition short-term general hospital (02) ==
LOC: ED 14:30 → MEDSURG 14:47
PROVIDERS: Admitting Provider Family Medicine; Emergency Provider Family Medicine; PCP Physician Assistant Medical; Visit Provider Family Medicine
DX: K80.42 Calculus of bile duct with acute cholecystitis without obstruction (principal); K85.10 Biliary acute pancreatitis without necrosis or infection; E11.40 Type 2 diabetes mellitus with diabetic neuropathy, unspecified; N17.9 Acute kidney failure, unspecified; I10 Essential (primary) hypertension; F41.9 Anxiety disorder, unspecified; G47.00 Insomnia, unspecified; R94.31 Abnormal electrocardiogram [ECG] [EKG]; K76.0 Fatty (change of) liver, not elsewhere classified; E03.9 Hypothyroidism, unspecified; F98.8 Other specified behavioral and emotional disorders with onset usually occurring in childhood and adolescence; E78.1 Pure hyperglyceridemia
CPT/HCPCS: 36415; 80053; 82248; 82962; 83605; 83690; 84478; 84703; 85025; 85610; 86140; 94761; 99285; A9270; J1170; J2270; J2405; J2543; J7050; J7120

== ENCOUNTER 2023-07-23 11:55 | Outpatient (CLI) | payer BC, SELFPAY | END 2023-07-23 11:56 | disposition home or self-care (01) | PROVIDERS: PCP Physician Assistant Medical; Visit Provider Family Medicine | DX: R10.9 Unspecified abdominal pain (principal) | CPT/HCPCS: A0425; A0427 ==

== ENCOUNTER 2023-07-23 17:20 | Inpatient (IN) | payer BC, SELFPAY ==
[2023-07-23 17:15] VITALS: BP 137/80; PULSE 84; RESP 18; TEMP 36.8; O2SAT 98
--- NOTE | 2023-07-23 17:40 | P.IMPN_ITS ---
Progress Note: A&P Assessment and plan (1) Acute pancreatitis: Problem details: - Lipase 07/18/23 was 93 and is 8,282 today (07/22) Status: Acute (2) Acute cholecystitis: Problem details: - Planning lap cam tomorrow. Continue NPO, pain medications, antiemetics, zosyn, IVF. Status: Acute (3) Pre-op evaluation: Problem details: - Had outpatient preop physical with Lisa Campbell in clinic on 07/18/2023. An EKG done in that visit showed sinus tachycardia of 107 beats per minute, R waves in leads 3 and RVF, likely computer over read of inferior infarct, anteroseptal infarct might be correct except for lack of clinical concern. Due to patient's history of hypertension, diabetes, hypothyroidism and hypertriglyceridemia, the case was discussed with Cardiology as a curbside and the recommendation was to proceed with important but elective cholecystectomy based on functional capacity. - No further work up needed for planned elective surgery tomorrow. Status: Acute (4) Choledocholithiasis: Problem details: Patient clinically improved today and transferred [facility] for ERCP. That procedure was successful. Status: Resolved (5) S/P ERCP: Problem details: - 07/23/23 Dr. Clara [facility] - Complete removal of a stone in the major papilla was accomplished by biliary sphincterotomy and balloon extraction. 1 pancreatic stent was placed into the ventral pancreatic duct. - Post procedure recommendations are to wash for pancreatitis, bleeding, perforation, cholangitis, obtain surgical consultation for cholecystectomy, perform a flat plate abdominal x-ray in 2 weeks. Status: Acute (6) HTN (hypertension): Problem details: Continue to hold lisinopril for now in light of recent RICKIE. Consider restarting after surgery tomorrow or upon discharge home. Status: Chronic (7) Type 2 diabetes mellitus: Problem details: - HgbA1C 6.8% on 07/18/23 - Keep NPO for lap cam tomorrow. - q6H accuchecks and ISS. Status: Chronic (8) Hypothyroidism: Problem details: - 07/18/23 TSH 1.27 - Continue synthroid Status: Chronic (9) Hypertriglyceridemia: Problem details: - 07/22/23 TG 193 Status: Chronic (10) Anxiety: Status: Chronic (11) Insomnia: Problem details: - prn melatonin Status: Chronic Subjective Time Seen by Provider: 17:25 Date Seen: 07/23/23 Interval history: Lisa is a 48-year-old female had a common bile duct stone causing acute pancreatitis and hepatitis who was admitted here 07/22/2023 by myself, please see my H&P for details, and went to ERCP at [place] today and is back after getting the common bile duct stone removed. She had general anesthesia for that procedure. She tells me that postprocedure she felt okay, but on the way down in the ambulance she became progressively more nauseous. She is very nauseous now and says she does not even know if she is having pain because she is just too nauseous to know. She has no other complaints. She was able to make a few jokes. At this point the plan is for her to have a cholecystectomy tomorrow by Dr. Campbell. I have reviewed my H&P from 07/22/2023 and have updated past medical history in the chart to reflect the recent ERCP; there are no changes to family history or social history. From paperwork sent with patient from [place]: Complete removal of a stone in the major papilla was accomplished by biliary sphincterotomy and balloon extraction. 1 pancreatic stent was placed into the ventral pancreatic duct. Post procedure recommendations are to wash for pancreatitis, bleeding, perforation, cholangitis, obtain surgical consultation for cholecystectomy, perform a flat plate abdominal x-ray in 2 weeks. Exam Narrative: Exam Narrative: General: Pale, eyes closed, appears unwell, complains of nausea. Awake, oriented x3. No jaundice. Oropharynx: Clear. Mucous membranes moist. Cardiovascular: Regular rate and rhythm. No murmurs, gallops, or rubs. Respiratory: Clear to auscultation bilaterally. No wheezes or crackles. Abdomen: Bowel sounds present. Soft, nondistended, tender in the epigastrium and right upper quadrant, moreso the latter. Const: Vital Signs, click to edit/add: Vital Signs - 24 hr 07/22/23 11:26 07/22/23 11:38 07/22/23 11:59 Temperature 97.8 F Pulse Rate 102 H Pulse Rate [Pulse Oximeter] 110 H Pulse Rate [Right Radial] Respiratory Rate 20 Blood Pressure Blood Pressure [Le ft Arm] Blood Pressure [Ri ght Upper Arm] 106/64 Pulse Oximetry 96 97 93 Oxygen Delivery Me thod Room Air 07/22/23 12:00 07/22/23 12:01 07/22/23 12:02 Temperature Pulse Rate 101 H 100 100 Pulse Rate [Pulse Oximeter] Pulse Rate [Right Radial] Respiratory Rate Blood Pressure 118/75 Blood Pressure [Le ft Arm] Blood Pressure [Ri ght Upper Arm] Pulse Oximetry 95 95 94 Oxygen Delivery Me thod 07/22/23 12:30 07/22/23 13:00 07/22/23 13:01 Temperature Pulse Rate 99 102 H 99 Pulse Rate [Pulse Oximeter] Pulse Rate [Right Radial] Respiratory Rate Blood Pressure 104/64 Blood Pressure [Le ft Arm] Blood Pressure [Ri ght Upper Arm] Pulse Oximetry 95 93 92 Oxygen Delivery Me thod 07/22/23 13:30 07/22/23 14:00 07/22/23 14:01 Temperature Pulse Rate 98 98 97 Pulse Rate [Pulse Oximeter] Pulse Rate [Right Radial] Respiratory Rate Blood Pressure 111/72 Blood Pressure [Le ft Arm] Blood Pressure [Ri ght Upper Arm] Pulse Oximetry 91 95 96 Oxygen Delivery Me thod 07/22/23 14:02 07/22/23 14:30 07/22/23 14:57 Temperature Pulse Rate 97 95 Pulse Rate [Pulse Oximeter] Pulse Rate [Right Radial] Respiratory Rate 18 Blood Pressure Blood Pressure [Le ft Arm] Blood Pressure [Ri ght Upper Arm] Pulse Oximetry 95 96 94 Oxygen Delivery Me thod Room Air 07/22/23 15:00 07/22/23 15:06 07/22/23 15:54 Temperature 98.8 F Pulse Rate Pulse Rate [Pulse Oximeter] Pulse Rate [Right Radial] 97 Respiratory Rate 18 20 Blood Pressure Blood Pressure [Le ft Arm] 105/63 Blood Pressure [Ri ght Upper Arm] Pulse Oximetry 94 96 Oxygen Delivery Me thod Room Air 07/22/23 19:19 Temperature 98.8 F Pulse Rate Pulse Rate [Pulse Oximeter] Pulse Rate [Right Radial] 97 Respiratory Rate 20 Blood Pressure Blood Pressure [Le ft Arm] 117/84 Blood Pressure [Ri ght Upper Arm] Pulse Oximetry 93 Oxygen Delivery Me thod Room Air
[2023-07-23] MEDS: PROCHLORPERAZINE 5 MG/ML VIAL IV (17:50)
[2023-07-23] MEDS: LACTATED RINGERS 1000 ML 1,000 ML 150 ML IV (18:00)
[2023-07-23] MEDS: PIPERACILLIN/TAZOBACTAM 3.375 GM in 0.9 % SODIUM CHLORIDE Mini-bag 100 ML IVPB ×2 (18:01→23:52)
[2023-07-23 19:00] VITALS: BP 145/84; PULSE 96; RESP 18; TEMP 36.8; O2SAT 97
[2023-07-23] MEDS: LORazepam 2 MG/ML inj 0.5 MG IVP (19:18)
[2023-07-23 19:27] LABS: Troponin I* < 0.01 ng/mL (0.01-0.04)
[2023-07-23] MEDS: GABAPENTIN 600 MG TABLET PO (20:47)
--- NOTE | 2023-07-23 22:43 | PC.NURSE ---
Patient readmitted to unit at 1715 post ERCP at [place], transferred via EMS. Appears pale upon return, reporting nausea that is increasing in intensity. Patient unsure if she is having pain due to the nausea at this time. MD notified of nausea, new orders received. Administered PRN for nausea without effective results after 30 minutes, Dr. Wells notified and ordered EKG, telemetry and STAT lab. One time dose lorazepam ordered as well. Patient states it feels like there is air or a gas bubble stuck causing the discomfort. Bowel sounds active. Continues to be NPO for procedure on 07/24. MD requesting to be updated with increasing discomfort, increased nausea or tachycardia. Patient concerned with sleeping overnight, stated she did not sleep well last night and the melatonin was ineffective. Updated Dr. Wells regarding patient request for sleep aide, no changes at this time.
[2023-07-23 23:00] VITALS: BP 128/77; PULSE 89; PULSE 90; RESP 18; TEMP 36.8; O2SAT 95; O2SAT 97
[2023-07-23] MEDS: HYDROmorphone 0.5 mg/0.5 ml inj IVP (23:58)
[2023-07-23] MEDS: MELATONIN 3 MG TABLET PO (23:58)
[2023-07-23] MEDS: SODIUM CHLORIDE 0.9 % (FLUSH) 10 ML SYRINGE 5 ML IVF (23:59)
[2023-07-24] VITALS (22 sets, daily range): BP systolic 121–143; BP diastolic 66–83; PULSE 81–99; RESP 14–20; TEMP 36.1–37.3; O2SAT 91–99
[2023-07-24] MEDS: LACTATED RINGERS 1000 ML 1,000 ML 150 ML IV ×2 (01:24→08:10)
[2023-07-24] MEDS: PIPERACILLIN/TAZOBACTAM 3.375 GM in 0.9 % SODIUM CHLORIDE Mini-bag 100 ML IVPB (05:23)
--- NOTE | 2023-07-24 05:52 | PC.NURSE ---
Shift note: Pt is here for possible cholecystomy today and has been maintained on NPO. Pt was particular about the specific medications she wanted against what was prescribed. Insisted on taking Ambience as against Melatonin. Patient added that the scheduled melatonin is not powerful enough to put her to Sleep. MD informed but declined the requested. Nurse discussed with MD and agreed to give Deluded and melatonin which seemed to work fine. No increase in abd pain, n/v, HR, and discomfort. Pt appeared cheerful this morning.
[2023-07-24] MEDS: LEVOTHYROXINE 88 MCG TABLET PO (06:29)
[2023-07-24 06:51] LABS: Basophils Percent Auto 0.5 % (0.0-3.0); Eosinophils Percent Auto 2.7 % (0.0-7.0); Hematocrit 29.6 % (33.0-51.0); Hemoglobin* 9.9 gm/dL (12.0-16.0); Immature Granulocytes Pct Auto 0.2 %; Lymphocytes Percent Auto 29.2 % (20-44); Mean Corpuscular HGB Conc 33 gm/dL (32-36); Mean Corpuscular Hemoglobin 30 pg (26-34); Mean Corpuscular Volume 91 fL (80-100); Monocytes Percent Auto 7.1 % (0.0-11.0); Neutrophils Percent Auto 60.3 % (42.0-72.0); Platelet Count* 172 K/uL (140-440); RDW Coefficient of Variation % 14.3 % (11.5-15.5); Red Blood Count 3.26 m/uL (4.00-5.20); White Blood Count* 4.08 K/uL (4.50-11.00)
[2023-07-24 06:58] LABS: Albumin* 4.1 g/dL (3.3-5.0); Chloride* 100 mmol/L (96-114); Slide Review Reflex No
[2023-07-24 06:59] LABS: Potassium* 3.8 mmol/L (3.6-5.1); Sodium* 137 mmol/L (135-149)
[2023-07-24 07:00] LABS: Creatinine* 0.6 mg/dL (0.5-1.5); Est. Creatinine Clearance* 114.41; Estimated Glomerular Filt Rate 110 ml/min
[2023-07-24 07:01] LABS: Alkaline Phosphatase* 113 U/L (40-150); Anion Gap 12 mEq/L (7-15); Aspartate Amino Transferase* 101 U/L (12-35); Bilirubin Direct* 0.4 mg/dL (0.0-0.5); Bilirubin Total* 1.8 mg/dL (0.1-1.5); Blood Urea Nitrogen* 10 mg/dL (5-24); Carbon Dioxide* 25 mmol/L (20-32); Lipase* 153 U/L (23-300); Total Protein* 6.8 g/dL (6.0-8.3)
[2023-07-24 07:02] LABS: Alanine Aminotransferase* 490 U/L (4-35); Calcium* 9.2 mg/dL (8.4-10.6); Glucose* 141 mg/dL (60-115)
[2023-07-24 07:04] LABS: C Reactive Protein* 1.1 mg/dL (0.5-1.0)
[2023-07-24] MEDS: CEFAZOLIN 2 GM in 0.9 % SODIUM CHLORIDE Mini-bag 100 ML IVPB (10:50)
[2023-07-24] MEDS: BUPIVACAINE 0.25% 30 ML INJECTION (11:38)
--- NOTE | 2023-07-24 11:39 | W.ANESCHARGE ---
Anesthesia Charges Start Date/Time Anesthesia Start Date: 07/24/23 Anesthesia Start Time: 10:39 Stop Date/Time Anesthesia Stop Date: 07/24/23 Anesthesia Stop Time: 11:58
--- NOTE | 2023-07-24 11:50 | P.GSOP_ITS ---
Operative Note Date of procedure: 07/24/23 Pre-op diagnosis: 1. Biliary colic. 2. Choledocholithiasis s/p ERCP yesterday. 3. Possible acute cholecystitis. Post-op diagnosis: 1. Biliary colic. 2. Acute cholecystitis. Type of Procedure: 1. Laparoscopic cholecystectomy. Indications: 48-year-old female was evaluated in clinic for repeated episodes of right upper quadrant pain after greasy food. Patient's ultrasound showed sludge but no definite stones. Patient's gallbladder wall was measured at 3 mm and common bile duct was 7 mm. Patient was scheduled for MRCP to evaluate her common bile duct. A small stone was noted in the distal common bile duct. Patient had normal bilirubin and was scheduled for laparoscopic cholecystectomy with intraoperative cholangiogram. Prior to her surgery she presented to the emergency room with excruciating right upper quadrant pain. Her liver function tests were repeated and she had elevated total and direct bilirubin with lipase of over 8000. Given the finding of distal common bile duct stone, ERCP was recommended. Patient was sent to the outside hospital for ERCP which was done successfully yesterday. A stone was retrieved from her common bile duct. A stent was placed in the sphincter of Oddi. Patient's pain improved. Her lipase was normal postprocedure. Her direct bilirubin was normal postprocedure. Given patient's clinical history and her exam, a laparoscopic cholecystectomy was recommended. The procedure was discussed in detail. The risks associated procedure including infection, bleeding, injury to intra-abdominal organs, and injury to the common bile duct were all discussed with the patient, and she agreed to proceed. Procedure Description: After discussing the risks and benefits of the procedure, the patient signed informed consent.? The operative site was marked and the patient was brought to the operating room and placed on the operating table in supine position.? Care was taken to pad the patient's pressure points.?? The patient was then intubated by anesthesia.?? The operative site was then prepped and draped in the usual sterile fashion.? A time-out was then performed. A 5-mm laparoscopy port was placed in the left upper quadrant guided by a 5-mm laparoscope placed into a translucent trochar.~ Passage through the layers of the abdominal wall was visualized with the laparoscope.~ A pneumoperitoneum was established. A 0-degree 5-mm laparoscope was advanced into the abdomen. The a bdomen was briefly surveyed, and no adhesions were noted. A 10-mm port were placed infraumbilically and two more 5 mm ports were placed on the right under direct visualization by laparoscope. The camera was then changed to 10 mm 30- degree scope and placed into the abdomen through the 10 mm port. The left upper quadrant port entrance was examined and no injury to intra-abdominal organs was identified. The gallbladder was identified, the fundus grasped and retracted cephalad. The infundibulum was grasped and retracted laterally, exposing the peritoneum overlying the triangle of Calot. This was then divided and exposed in a blunt fashion and with hook cautery. Common bile duct was not identified but care was taken not to injure it. The cystic duct was clearly identified and bluntly dissected circumferentially. Cystic artery was identified just posterior and lateral to the cystic duct and tissues around it were dissected off. The cystic artery was clearly going into the gallbladder. This was clipped with two 5 mm clips on the patient's side and a single clip on the specimen side and divided with scissors. The cystic duct was then further skeletonized circumferentially with hook cautery. More prominent medial veins were controlled with a single clip on the patient's side and divided with hook cautery on the specimen side. The cystic duct was then doubly ligated with surgical clips on the patient's side and singly clipped on the gallbladder side and divided. The gallbladder was dissected from the liver bed in retrograde fashion using hookcautery. At least 2 prominent veins from the gallbladder fossa to the gallbladder wall were skeletonized and clipped with 5 mm clips on the patient's side and divided with hook cautery on the specimen side. Edema was noted in the gallbladder wall. When the gallbladder was free, it was placed into an Endo- Catch bag and removed through the infraumbilical incision. Surgical site was examined for bleeding. No bleeding was seen in the surgical field. The fascia of the infraumbilical incision was then closed with 0-0 vicryl. Pneumoperitoneum was completely reduced after viewing removal of the trocars under direct vision. The skin was then closed with 4-0 monocryl and steristrips were applied. Instrument, sponge, and needle counts were correct at closure and at the conclusion of the case. The patient was transferred to PACU in stable condition. Findings: Acute cholecystitis Anesthesia: GETA Surgeon: Cortez Campbell MD Estimated blood loss (mL): 5 Specimen: Gallbladder Condition: stable Disposition: PACU
--- NOTE | 2023-07-24 12:01 | W.ANESCHARGE ---
Anesthesia Charges Start Date/Time Anesthesia Start Date: 07/24/23 Anesthesia Start Time: 10:39 Stop Date/Time Anesthesia Stop Date: 07/24/23 Anesthesia Stop Time: 11:58
[2023-07-24] MEDS: LACTATED RINGERS 1000 ML 1,000 ML 35 ML IV (12:13)
--- NOTE | 2023-07-24 14:51 | P.DS_ITS ---
DS: Providers Provider Date Seen: 07/24/23 Date of admission: 07/23/23 17:20 Primary care physician: Ramesh Castillo PA-C Admitting Clinician: Ginny Wells MD Attending Physician on discharge: Gaurav Ahn MD Date of Discharge: 07/24/23 DS: Diagnosis Discharge Diagnosis (1) Acute pancreatitis: Status: Acute Problem details: Gallstone pancreatitis from choledocholithiasis. Underwent ERCP July 23 at [facility]. (2) Acute cholecystitis: Status: Acute Problem details: Laparoscopic cholecystectomy performed today by Dr. Campbell. Doing well postoperatively (3) Choledocholithiasis: Status: Resolved Problem details: Patient clinically improved today and transferred [place] for ERCP. That procedure was successful. (4) S/P ERCP: Status: Acute Problem details: - 07/23/23 Dr. Clara Lackey and transferred back to [place] for cholecystectomy - Complete removal of a stone in the major papilla was accomplished by biliary sphincterotomy and balloon extraction. 1 pancreatic stent was placed into the ventral pancreatic duct. - Post procedure recommendations are to wash for pancreatitis, bleeding, perforation, cholangitis, obtain surgical consultation for cholecystectomy, perform a flat plate abdominal x-ray in 2 weeks. (5) Status post laparoscopic cholecystectomy: Status: Acute Problem details: Dr. Campbell, 07/24/2023, no apparent complications (6) RICKIE (acute kidney injury): Status: Acute Problem details: Creatinine 1.3 on admission. 0.8 on discharge, back to baseline (7) Type 2 diabetes mellitus: Status: Chronic Problem details: - HgbA1C 6.8% on 07/18/23 - Keep NPO for lap cam tomorrow. - q6H accuchecks and ISS. DS: Summary Status at Discharge Functional status at discharge: independent ambulation Overall status at discharge: patient is progressing back to baseline Time Spent with Patient Time attestation: Total time spent providing and/or coordinating discharge services: Time spent: Greater than 30 minutes Exam Narrative: Exam Narrative: She is alert and appears in no distress. Breathing is unlabored. Const: Vital Signs, click to edit/add: Vital Signs - 24 hr 07/23/23 17:15 07/23/23 17:15 07/23/23 19:00 Temperature 98.2 F 98.3 F Pulse Rate Pulse Rate [Right Pulse Oximeter] 84 96 Respiratory Rate 18 18 18 Blood Pressure Blood Pressure [Le ft Arm] 145/84 H Blood Pressure [Ri ght Arm] 137/80 Pulse Oximetry 98 98 97 Oxygen Delivery Me thod Room Air Room Air Room Air Oxygen Flow Rate 07/23/23 23:00 07/23/23 23:00 07/23/23 23:00 Temperature 98.3 F Pulse Rate Pulse Rate [Right Pulse Oximeter] 89 89 Respiratory Rate 18 18 18 Blood Pressure Blood Pressure [Le ft Arm] 128/77 Blood Pressure [Ri ght Arm] Pulse Oximetry 97 95 Oxygen Delivery Me thod Room Air Room Air Oxygen Flow Rate 07/23/23 23:00 07/24/23 03:00 07/24/23 07:23 Temperature 98.9 F 99.2 F Pulse Rate 90 Pulse Rate [Right Pulse Oximeter] 86 91 Respiratory Rate 18 20 Blood Pressure Blood Pressure [Le ft Arm] 131/74 131/76 Blood Pressure [Ri ght Arm] Pulse Oximetry 96 95 Oxygen Delivery Me thod Room Air Room Air Oxygen Flow Rate 07/24/23 08:05 07/24/23 10:30 07/24/23 11:25 Temperature 98.2 F 97.2 F L Pulse Rate 87 Pulse Rate [Right Pulse Oximeter] 84 Respiratory Rate 20 16 14 Blood Pressure Blood Pressure [Le ft Arm] 124/70 131/71 Blood Pressure [Ri ght Arm] Pulse Oximetry 95 95 Oxygen Delivery Me thod Room Air Room Air Room Air Oxygen Flow Rate 07/24/23 11:53 07/24/23 12:00 07/24/23 12:05 Temperature 97.7 F Pulse Rate 84 82 82 Pulse Rate [Right Pulse Oximeter] Respiratory Rate 18 16 16 Blood Pressure 130/67 125/68 132/70 Blood Pressure [Le ft Arm] Blood Pressure [Ri ght Arm] Pulse Oximetry 91 97 99 Oxygen Delivery Me thod Nasal Cannula Room Air Oxygen Flow Rate 2 07/24/23 12:10 07/24/23 12:15 07/24/23 12:20 Temperature 97 F L Pulse Rate 83 87 91 Pulse Rate [Right Pulse Oximeter] Respiratory Rate 14 16 16 Blood Pressure 132/68 127/70 130/69 Blood Pressure [Le ft Arm] Blood Pressure [Ri ght Arm] Pulse Oximetry 95 93 94 Oxygen Delivery Me thod Room Air Oxygen Flow Rate 07/24/23 12:30 07/24/23 12:30 07/24/23 12:35 Temperature 97.2 F L 97.2 F L 97.2 F L Pulse Rate 91 91 Pulse Rate [Right Pulse Oximeter] Respiratory Rate 16 16 16 Blood Pressure Blood Pressure [Le ft Arm] 131/71 131/71 131/71 Blood Pressure [Ri ght Arm] Pulse Oximetry 92 Oxygen Delivery Me thod Room Air Room Air Room Air Oxygen Flow Rate 2 0 07/24/23 12:45 07/24/23 13:00 07/24/23 13:15 Temperature 97.2 F L 97.2 F L 97.4 F L Pulse Rate Pulse Rate [Right Pulse Oximeter] 88 91 89 Respiratory Rate 14 16 16 Blood Pressure Blood Pressure [Le ft Arm] 127/70 121/66 121/66 Blood Pressure [Ri ght Arm] Pulse Oximetry 92 94 94 Oxygen Delivery Me thod Room Air Room Air Room Air Oxygen Flow Rate 0 0 0 07/24/23 13:30 07/24/23 14:00 07/24/23 14:30 Temperature 97.4 F L 97.7 F 97.8 F Pulse Rate Pulse Rate [Right Pulse Oximeter] 91 90 81 Respiratory Rate 16 16 16 Blood Pressure Blood Pressure [Le ft Arm] 140/83 H 142/83 H 134/74 Blood Pressure [Ri ght Arm] Pulse Oximetry 96 97 97 Oxygen Delivery Me thod Room Air Room Air Room Air Oxygen Flow Rate 0 0 0 07/24/23 14:47 Temperature Pulse Rate Pulse Rate [Right Pulse Oximeter] Respiratory Rate 16 Blood Pressure Blood Pressure [Le ft Arm] Blood Pressure [Ri ght Arm] Pulse Oximetry 97 Oxygen Delivery Me thod Room Air Oxygen Flow Rate 0 Documenting provider has reviewed patient's vital signs: yes DS: Data Data Completed and Pending Labs on day of discharge: Labs from last 24 hours 07/24/23 07/23/23 05:53 18:25 WBC 4.08 L RBC 3.26 L Hgb 9.9 L Hct 29.6 L MCV 91 MCH 30 MCHC 33 RDW Coeff of Adelita 14.3 Plt Count 172 Neut % (Auto) 60.3 Lymph % (Auto) 29.2 [place] % (Auto) 7.1 Eos % (Auto) 2.7 Baso % (Auto) 0.5 Neut # (Auto) 2.50 Lymph # (Auto) 1.20 [place] # (Auto) 0.30 Eos # (Auto) 0.10 Baso # (Auto) 0.00 Abs Immat Gran (auto) 0.00 Imm/Tot Granulo (auto) 0.2 Sodium 137 Potassium 3.8 Chloride 100 Carbon Dioxide 25 Anion Gap 12 BUN 10 Creatinine 0.6 Estimated Creat Clear 114.41 Estimated GFR 110 Glucose 141 H Calcium 9.2 Total Bilirubin 1.8 H Direct Bilirubin 0.4 AST 101 H ALT 490 H Alkaline Phosphatase 113 Troponin I < 0.01 L C-Reactive Protein 1.1 H Total Protein 6.8 Albumin 4.1 Lipase 153 Discharge Plan Discharge Disposition: Home, Self-Care Date of Admission: 07/23/23 17:20 Attending Provider on Discharge: Cortez Campbell Primary Care Provider: Ramesh Castillo Condition: Improved Anticipated Discharge Date/Time: 07/24/23 19:00 Discharge Medications: New hydrocodone-acetaminophen 5-325 mg tablet 1 tab PO Q6H PRN (Reason: pain) Qty: 25 0RF Continued cholecalciferol (vitamin D3) 25 mcg (1,000 unit) tablet 25 mcg PO DAILY aspirin 81 mg tablet,delayed release (DR/EC) 81 mg PO DAILY Trulicity 3 mg/0.5 mL pen injector 3 mg subcut QWEEK 90 Days Qty: 6.5 1RF gabapentin 600 mg tablet 600 mg PO HS glipizide 5 mg tablet extended release 24hr 5 mg PO DAILY levothyroxine [Synthroid] 88 mcg tablet 88 mcg PO DAILY metformin 500 mg tablet extended release 24 hr 2,000 mg PO HS dextroamphetamine-amphetamine 10 mg tablet 15 mg PO DAILY PRN lisinopril 20 mg tablet 20 mg PO DAILY Discharge Orders: Discharge Order (Routine); Ordered 07/24/23 Ordered By: Cortez Campbell Patient Education: Hydrocodone/Acetaminophen (By mouth), General Anesthesia (DC), Laparoscopic Cholecystectomy (DC), Post-Operative Instructions: Laparoscopic Cholecystectomy Activity Level: No strenuous activity Activity Detail: No strenuous activity or lifting more than 15-20 lbs for 4-6 weeks. Take laxative such as MiraLax or senna daily for the first 7-10 days after surgery to prevent constipation. Follow up as previously scheduled. Discharge Diet: Diabetic Follow Up Appointments: Cortez Campbell MD [Staff Physician] - Forms: [employer] Info Instructions
[2023-07-24] MEDS: HYDROCODONE-ACETAMIN 5-325 MG 1 TAB PO (16:35)
--- NOTE | 2023-07-24 17:26 | PC.NURSE ---
Pt alert and oriented. Pt pleasant and cooperative.Pt independent. Pt went to surgery at 1030am and returned to floor at 1230pm. Pt had complaints of pain ranging 0-3; see EMAR for intervention. Pt up walking in hallways. Pt advanced to regular diet and tolerated well. PT has 4 lap sites from surgery. Pt?s IV removed and catheter intact. Pt discharged home with .? ?
== END 2023-07-24 17:00 | disposition home or self-care (01) | DRG 263 ==
PROVIDERS: Surgery; Admitting Provider Family Medicine; PCP Physician Assistant Medical; Visit Provider Family Medicine
PROC: 0FT44ZZ Resection of Gallbladder, Percutaneous Endoscopic Approach (ICD-10-PCS; CPT 47562; principal; 2023-07-24 11:00)
DX: K81.0 Acute cholecystitis (principal); K85.10 Biliary acute pancreatitis without necrosis or infection; E11.40 Type 2 diabetes mellitus with diabetic neuropathy, unspecified; F98.8 Other specified behavioral and emotional disorders with onset usually occurring in childhood and adolescence; E03.9 Hypothyroidism, unspecified; K76.0 Fatty (change of) liver, not elsewhere classified; E78.1 Pure hyperglyceridemia; I10 Essential (primary) hypertension; G47.00 Insomnia, unspecified; Z98.890 Other specified postprocedural states; F41.9 Anxiety disorder, unspecified; R94.31 Abnormal electrocardiogram [ECG] [EKG]; N17.9 Acute kidney failure, unspecified
CPT/HCPCS: 00790; 36415; 80053; 82248; 82962; 83690; 84484; 85025; 86140; 88304; A9270; J0665; J0690; J0780; J1100; J1170; J1885; J2060; J2250; J2405; J2543; J2704; J2710; J3010; J3475; J7120

== ENCOUNTER 2023-08-06 14:59 | Outpatient (CLI) | payer BC, SELFPAY ==
--- NOTE | 2023-08-06 15:00 | CRLHL7_ITS ---
For Patients: As a result of the Century Cures Act, medical imaging exams and procedure reports are released immediately into your electronic medical record. You may view this report before your referring provider. If you have questions, please contact your health care provider. Indication: Pancreatic stent migration Technique: Abdomen 1 view. Comparison: MRI 07/1923 Findings: Pancreatic stent is not visualized. Calcified pelvic phleboliths. Surgical clips project over the right upper abdomen. Osseous structures normal. Colonic stool without dilated bowel loops. No pleural effusion. Impression: No evidence of pancreatic stent. Dictated by Dilip Jones MD @ 08/08/2023 6:32:44 AM (Electronically Signed)
== END 2023-08-06 15:00 | disposition home or self-care (01) ==
LOC: RAD 15:00
PROVIDERS: PCP Physician Assistant Medical; Visit Provider Internal Medicine Gastroenterology
DX: T85.528A Displacement of other gastrointestinal prosthetic devices, implants and grafts, initial encounter (principal)
CPT/HCPCS: 74018

== ENCOUNTER 2023-08-07 14:23 | Outpatient (CLI) | payer BC, SELFPAY ==
--- NOTE | 2023-08-07 14:45 | CRLHL7_ITS ---
For Patients: As a result of the Century Cures Act, medical imaging exams and procedure reports are released immediately into your electronic medical record. You may view this report before your referring provider. If you have questions, please contact your health care provider. INDICATION: Tachycardia COMPARISON: MR abdomen 07/19/23. TECHNIQUE: CT angiogram chest with contrast, pulmonary embolism protocol. Multiplanar axial, coronal, and sagittal reformats are included. MIP images to improve detection of pulmonary emboli are included. Intravenous contrast: 95 mL Isovue 370 FINDINGS: PE: Well-timed contrast bolus. No pulmonary emboli. Normal caliber main pulmonary artery. Normal sized right heart chambers. No reflux of contrast below the diaphragm. Heart and great vessels: Small pericardial effusion. Normal cardiac chamber size. No atherosclerotic plaques. No aortic aneurysm. Lungs: Expiratory phase imaging. Lung volumes are low. No nodules or masses. No consolidations. Normal appearance of the pulmonary interstitium. Pleura: No pleural effusion. No pneumothorax. Airway: Normal tracheobronchial tree. Lymph nodes: No thoracic adenopathy. Mediastinum: No pneumomediastinum. Bones: No fractures. No focal bone lesions. Normal for age. Chest wall: Normal. No masses. Upper abdomen: Cholecystectomy clips. No adjacent fluid collection or inflammation. No biliary ductal dilatation seen. The spleen measures at least 15 cm in length. IMPRESSION: 1. No pulmonary embolus. 2. Low lung volumes. No pulmonary parenchymal abnormality. 3. Small pericardial effusion. 4. Borderline spleen size measuring at least 15 cm in length. This is unchanged compared to the recent MR of the abdomen. Please note that all CT scans at this facility use dose modulation, iterative reconstruction, and/or weight-based dosing when appropriate to reduce radiation dose to as low as reasonably achievable. Dictated by Elsa Perez MD @ 08/07/2023 3:34:45 PM (Electronically Signed)
== END 2023-08-07 14:24 | disposition home or self-care (01) ==
LOC: CT 14:24
PROVIDERS: PCP Physician Assistant Medical; Visit Provider Surgery
DX: R00.0 Tachycardia, unspecified (principal); I31.39 Other pericardial effusion (noninflammatory)
CPT/HCPCS: 71275; Q9967

== ENCOUNTER 2023-09-05 08:46 | Outpatient (CLI) | payer BC, SELFPAY ==
--- NOTE | 2023-09-05 08:45 | MM_ITS ---
Patient: KATHERIN SANZ Facility:?[facility] Patient ID:?[id number] Site Patient ID:?[id number]. Site :?[id number] Study:?XRay-Breast Bilateral 3D W/CAD-09/05/2023 11:32:49 AM Ordering Physician:Joe Final Report: BILATERAL SCREENING MAMMOGRAM WITH COMPUTER-AIDED DETECTION AND TOMOSYNTHESIS TECHNIQUE: CC and MLO views were obtained. These mammographic images have been obtained using full-field digital technique. These mammographic images were interpreted with the benefit of computer-aided detection. Breast Tomosynthesis was used in this interpretation. COMPARISON FILM: Baseline. FINDINGS: There are scattered areas of fibroglandular density. IMPRESSION: There is no radiographic evidence for malignancy. ASSESSMENT: BI-RADS Category 1: Negative RECOMMENDATION: Routine screening mammogram in 1 year. A lay language report of this examination will be provided to the patient. Dilip Jones M.D. Diagnostic Radiologist [email or web address]/sp R& Transcribed: 7:19 p.m. SP/Dictated by: Dilip Jones MD @ 09/05/2023 12:16:00 PM Signed by:?Dilip Jones MD @09/06/2023 5:39:19 AM (Electronic Signature)
== END 2023-09-05 08:47 | disposition home or self-care (01) ==
LOC: MAMMO 08:47
PROVIDERS: PCP Physician Assistant Medical; Visit Provider Physician Assistant Medical
DX: Z12.31 Encounter for screening mammogram for malignant neoplasm of breast (principal)
CPT/HCPCS: 77063; 77067

== ENCOUNTER 2024-04-02 08:24 | Outpatient (CLI) | payer BC, SELFPAY | END 2024-04-02 08:25 | disposition home or self-care (01) | LOC: FRMREF 08:24 | PROVIDERS: PCP Physician Assistant Medical; Visit Provider Physician Assistant Medical | DX: E11.9 Type 2 diabetes mellitus without complications (principal); I10 Essential (primary) hypertension; E03.9 Hypothyroidism, unspecified; E78.1 Pure hyperglyceridemia; K76.0 Fatty (change of) liver, not elsewhere classified; E11.41 Type 2 diabetes mellitus with diabetic mononeuropathy | CPT/HCPCS: 82043; 82570; 84443 ==

== ENCOUNTER 2024-04-09 06:50 | Emergency (ER) | payer BC, SELFPAY ==
[2024-04-09 07:07] VITALS: BP 131/78; PULSE 101; RESP 18; TEMP 37.3; O2SAT 96; BMI 28.3
--- NOTE | 2024-04-09 08:14 | CRLHL7_ITS ---
For Patients: As a result of the Century Cures Act, medical imaging exams and procedure reports are released immediately into your electronic medical record. You may view this report before your referring provider. If you have questions, please contact your health care provider. INDICATION: Epigastric pain TECHNIQUE: CT abdomen and pelvis acquired with 91 cc Isovue 370 IV contrast. COMPARISON: MRI abdomen 07/19/2023. FINDINGS: Lower chest: Unremarkable. Liver: Unremarkable. Gallbladder and bile ducts: Cholecystectomy. Trace pneumobilia, which may be related to cholecystectomy or sphincter of Oddi incompetence. Pancreas: Unremarkable. No mass or inflammation. Spleen: Unremarkable. Normal in size. No masses. Adrenal glands: Unremarkable. No nodules. Kidneys: Unremarkable. No suspicious masses, stones, or hydronephrosis. GI tract: Lipoma within the 1st part of the duodenum (249), which was not definitely seen on 07/19/2023. Appendix is at the upper limits of normal with fecalized material throughout the base and body. However, lack of soft tissue stranding and gas within the distal aspect of the appendix makes acute appendicitis unlikely. Vasculature: Abdominal aorta is normal in caliber. Mesenteric arteries are patent. Lymph nodes: No lymphadenopathy. Peritoneum/Abdominal Wall: Unremarkable. No free air or significant free fluid. Pelvis: Unremarkable. Bones: Unremarkable for age. IMPRESSION: No acute intra-abdominal or intrapelvic pathology to explain symptoms. Duodenal lipoma is present. Please note that all CT scans at this facility use dose modulation, iterative reconstruction, and/or weight-based dosing when appropriate to reduce radiation dose to as low as reasonably achievable. Dictated by Nikki Sutton MD @ 04/09/2024 9:23:35 AM (Electronically Signed)
--- NOTE | 2024-04-09 08:16 | ED_ITS ---
HPI - Abdominal Pain General Chief Complaint: Abdominal Pain Stated Complaint: Upper mid-abdominal pain all night Time Seen by Provider: 04/09/24 06:57 History of Present Illness HPI narrative: This 49-year-old female comes in reporting upper epigastric abdominal pain that has been on and off but worsened over the last night. She has also had diarrhea for much of the last couple months. She has diabetes and states that her hemoglobin A1c is doing well. She has a poor appetite however because she seems to have diarrhea when attempting to take foods. She arrives here with normal vital signs. She does report some nausea but no vomiting. Her abdominal pain is in the upper epigastric region. She has had her gallbladder removed earlier this year. She does not take alcohol. She states that she is taking Trulicity. She had been on this medicine but discontinued a couple months ago and now resumed 2 weeks ago. Related Data Home Medications ?Medication ?Instructions ?Recorded ?Confirmed aspirin 81 mg tablet,delayed 81 mg PO DAILY 02/21/22 04/09/24 release cholecalciferol (vitamin D3) 25 25 mcg PO DAILY 09/13/22 04/09/24 mcg (1,000 unit) tablet carvedilol 12.5 mg tablet 12.5 mg PO BID 04/02/24 04/09/24 lisinopril 10 mg tablet 10 mg PO DAILY 04/02/24 04/09/24 dulaglutide 3 mg/0.5 mL 3 mg subcut QWEEK 04/09/24 04/09/24 subcutaneous pen injector (Trulicity) Previous Rx's ?Medication ?Instructions ?Recorded metformin 500 mg tablet,extended 2,000 mg (4 x 500 mg) PO QDAY 10/29/23 release 24 hr days #360 tabs peg 3350-electrolytes 236 240 ml PO Q10M #4,000 mL 01/21/24 gram-22.74 gram-6.74 gram-5.86 gram solution (Golytely) Synthroid 88 mcg tablet 88 mcg PO DAILY #90 tabs 03/11/24 (levothyroxine) gabapentin 600 mg tablet 600 mg PO HS #90 tabs 03/11/24 dextroamphetamine-amphetamine 10 15 mg (1.5 x 10 mg) PO DAILY 90 04/02/24 mg tablet days #135 tabs tirzepatide 2.5 mg/0.5 mL 2.5 mg (0.5 mL) subcut QWEEK #2 mL 04/02/24 subcutaneous pen injector (Genero) diphenoxylate-atropine 2.5 1 tab PO DAILY #15 tabs 04/09/24 mg-0.025 mg tablet (Lomotil) ondansetron HCl 4 mg tablet 4 mg PO Q6H #20 tabs 04/09/24 Allergies Allergy/AdvReac Type Severity Reaction Status Date / Time Sulfa (Sulfonamide Allergy Mild Hives Verified 04/09/24 09:07 Antibiotics) Review of Systems Status of ROS Reports: 10 or more systems reviewed and unremarkable except as noted in History and below Narrative Constitutional: No fevers, no weight gain or loss. Eyes: No discharge. No vision changes. HENT: No congestion, no sore throat, no ear pain. Cardiovascular: No chest pain, no palpitations. Respiratory: No shortness of breath, no wheezes, no cough. Gastrointestinal: Crampy upper epigastric abdominal pain. Nausea but no vomiting. Diarrhea as reported above. Genitourinary: No dysuria, no hematuria. Musculoskeletal: Normal range of motion. Skin: No rashes, no pruritis. Neurological: No dizziness, weakness, sensory change, speech change. Endo/Heme/Allergies: No bruising or bleeding. No polydipsia. Pysch: no suicidality, no anxiety, no insomnia. All other systems reviewed and are negative. [facility] Medical History (Updated 04/09/24 @ 10:15 by Norman Rendon MD) Tachycardia ?R00.0 - Tachycardia, unspecified (ICD-10) RICKIE (acute kidney injury) ?N17.9 - Acute kidney failure, unspecified (ICD-10) Acute pancreatitis ?K85.90 - Acute pancreatitis without necrosis or infection, unspecified (ICD- 10) Acute cholecystitis ?K81.0 - Acute cholecystitis (ICD-10) Choledocholithiasis ?K80.50 - Calculus of bile duct without cholangitis or cholecystitis without obstruction (ICD-10) Abnormal EKG ?R94.31 - Abnormal electrocardiogram [ECG] [EKG] (ICD-10) Plantar wart of left foot ?B07.0 - Plantar wart (ICD-10) Surgical History (Updated 11/11/23 @ 08:34 by Ramesh Castillo PA-C) Status post laparoscopic cholecystectomy ?Z90.49 - Acquired absence of other specified parts of digestive tract (ICD- 10) S/P ERCP ?Z98.890 - Other specified postprocedural states (ICD-10) History of foot surgery ?Z98.890 - Other specified postprocedural states (ICD-10) History of reduction mammoplasty ?Z98.890 - Other specified postprocedural states (ICD-10) History of section ?Z98.891 - History of uterine scar from previous surgery (ICD-10) Family History Other Diabetes Thyroid disease Social History Narrative: , spouse Robert is here with her today Self employed as a [employer] and [employer] Never-smoker Drinks alcohol a few drinks about once a month. Last had alcohol at the end of 2022. Denies recreational drugs. What is your current living situation?: I presently have a place to live Problems where you live: no known problems Problems where you live details: none In the past 12 months, utilities in danger of being shut off: no In past 12 months, lack of transportation kept you from medical appts, meetings, work, or getting things needed for daily living: no In the past 12 mos, have been you worried that your food would run out before you had money to buy more?: never true In the past 12 mos, the food you bought just didn't last and you didn't have money to buy more?: never true Highest level of school completed/degree received: Bachelor's degree Smoking Status: Never smoker Do you use any of these nicotine containing products: None How often do you have a drink containing alcohol: monthly or less How often do you have six or more drinks on one occasion: Never AUDIT-C Alcohol total score: 1 Non-prescribed substance use: denies use Caffeine: Yes How often does anyone, including family, friends and others, physically hurt you : never How often does anyone, including family, friends and others, insult or talk down to you: never How often does anyone, including family, friends and others, threaten you with harm: never How often does anyone, including family, friends and others, scream or curse at you: never Little interest or pleasure in doing things: several days Feeling down, depressed, or hopeless: several days service: No Exam Narrative: Exam Narrative: Constitutional: Well-developed, well-nourished, no acute distress. HEENT: Normocephalic, atraumatic. Neck: Normal range of motion. Nontender. Supple. Heart: Regular. No murmurs. Normal rate. Intact distal pulses. Lungs: Clear to auscultation. No chest discomfort. No wheezes, rhonchi, or rales. Abdomen: Normal bowel sounds. Nontender. No rebound tenderness. Genitalia: Deferred. Back: No midline tenderness. Normal range of motion. Extremities: Normal range of motion. No injury. Skin: Intact. No rash. Warm. No erythema or pallor. Neurologic: No altered sensation. No weakness. Alert and oriented. Psychiatric: No suicidality. No anxiety or depression. No insomnia. Nursing notes and vitals signs are reviewed. Const: Vital Signs, click to edit/add: Vital Signs - 24 hr 04/09/24 07:07 04/09/24 09:12 04/09/24 09:17 Temperature 99.1 F 99.1 F Pulse Rate [Right Pulse Oximeter] 101 H 106 H Respiratory Rate 18 18 Blood Pressure [Ri ght Upper Arm] 131/78 141/79 H Pulse Oximetry 96 96 Oxygen Delivery Me thod Room Air Room Air Course Vital Signs Vital signs: Initial Vital Signs Temperature 99.1 F 04/09/24 07:07 Temperature Source Temporal Artery Scan 04/09/24 07:07 Pulse Rate 101 H 04/09/24 07:07 Pulse Rhythm Regular 04/09/24 07:07 Respiratory Rate 18 04/09/24 07:07 Blood Pressure 131/78 04/09/24 07:07 Blood Pressure Mean 95 04/09/24 07:07 Blood Pressure Position Sitting 04/09/24 07:07 Pulse Oximetry 96 04/09/24 07:07 Oxygen Delivery Method Room Air 04/09/24 07:07 Vital Signs Temperature 99.1 F 04/09/24 07:07 Pulse Rate 101 H 04/09/24 07:07 Respiratory Rate 18 04/09/24 07:07 Blood Pressure 131/78 04/09/24 07:07 Pulse Oximetry 96 04/09/24 07:07 Oxygen Delivery Method Room Air 04/09/24 07:07 Temperature 99.1 F 04/09/24 09:17 Pulse Rate 106 H 04/09/24 09:12 Respiratory Rate 18 04/09/24 09:12 Blood Pressure 141/79 H 04/09/24 09:12 Pulse Oximetry 96 04/09/24 09:12 Oxygen Delivery Method Room Air 04/09/24 09:12 MDM - Abdominal Pain MDM Narrative Medical decision making narrative: This patient comes in reporting persistent diarrhea over the past couple months and now upper epigastric abdominal pain. She also has nausea symptoms at times. She is fearful that she has cancer or pancreatitis. She did have her gallbladder removed about 9 months ago and did really well for several months but now over the past couple months she is not feeling normal. I did discuss lab and imaging options with the patient. She did have labs done at a regular checkup last week and I reviewed those results. The patient is interested in having CT imaging of her abdomen and pelvis because of the duration of her symptoms and worsening pain recently. CT scan is obtained and shows no findings to explain her symptoms. Additionally lab results are all very reassuring. This was good news to her and I began to suggest some options for treatment and encouraged her to try to resume a normal diet. She is okay to be discharged home and did received prescription for Zofran and a few tablets of Lomotil. I recommended using Imodium and uarl-pbw-ecjawmi medicines such as Prilosec or Nexium for symptomatic relief also. Lab Data Labs: Lab Results 04/09/24 Range/Units 08:20 WBC 6.11 (4.50-11.00) K/uL RBC 3.70 L (4.00-5.20) m/uL Hgb 11.8 L (12.0-16.0) gm/dL Hct 33.7 (33.0-51.0) % MCV 91 (80-100) fL MCH 32 (26-34) pg MCHC 35 (32-36) gm/dL RDW Coeff of Adelita 14.0 (11.5-15.5) % Plt Count 198 (140-440) K/uL Neut % (Auto) 76.0 H (42.0-72.0) % Lymph % (Auto) 16.4 L (20-44) % Dickey % (Auto) 4.9 (0.0-11.0) % Eos % (Auto) 2.0 (0.0-7.0) % Baso % (Auto) 0.2 (0.0-3.0) % Neut # (Auto) 4.60 (1.7-7.0) K/uL Lymph # (Auto) 1.00 (0.90-2.90) K/uL Dickey # (Auto) 0.30 (0.00-0.90) K/UL Eos # (Auto) 0.12 (0.00-0.50) K/uL Baso # (Auto) 0.01 (0.00-0.30) K/uL Abs Immat Gran (auto) 0.03 (0.00-0.30) K/uL Imm/Tot Granulo (auto) 0.5 % ESR 9 (2-20) mm/hr Sodium 138 (135-149) mmol/L Potassium 4.2 (3.6-5.1) mmol/L Chloride 101 (96-114) mmol/L Carbon Dioxide 25 (20-32) mmol/L Anion Gap 12 (7-15) mEq/L BUN 14 (7-30) mg/dL Creatinine 0.6 (0.5-1.5) mg/dL Estimated Creat Clear 113.16 Estimated GFR 109 ml/min Glucose 237 H (60-115) mg/dL Calcium 9.5 (8.4-10.6) mg/dL Total Bilirubin 2.7 H (0.1-1.5) mg/dL Direct Bilirubin 0.2 (0.0-0.5) mg/dL AST 32 (12-35) U/L ALT 30 (4-35) U/L Alkaline Phosphatase 58 (40-150) U/L Total Protein 7.4 (6.0-8.3) g/dL Albumin 4.8 (3.3-5.0) g/dL Lipase 68 (23-300) U/L Vitamin B12 290 (243-894) pg/mL Imaging Data CT scan - abdomen: Radiologist's impression: No acute intra-abdominal or intrapelvic pathology to explain symptoms. Duodenal lipoma is present. Discharge Plan Discharge Clinical Impression: Abdominal pain, Diarrhea Patient Disposition: Home, Self-Care Condition: Stable Additional Instructions: Use alwg-pof-mzyhfgg medicines such as Prilosec or Nexium as needed and directed. Imodium is also recommended for first-line treatment of diarrhea symptoms. Use Zofran and Lomotil additionally as needed and directed. Follow up with MD or return if worsening. Prescriptions: New ondansetron HCl 4 mg tablet 4 mg PO Q6H Qty: 20 0RF diphenoxylate-atropine [Lomotil] 2.5-0.025 mg tablet 1 tab PO DAILY Qty: 15 0RF No Action cholecalciferol (vitamin D3) 25 mcg (1,000 unit) tablet 25 mcg PO DAILY levothyroxine [Synthroid] 88 mcg tablet 88 mcg PO DAILY Qty: 90 1RF gabapentin 600 mg tablet 600 mg PO HS Qty: 90 0RF carvedilol 12.5 mg tablet 12.5 mg PO BID lisinopril 10 mg tablet 10 mg PO DAILY Mounjaro 2.5 mg/0.5 mL pen injector 2.5 mg subcut QWEEK Qty: 2 0RF Rx Instructions: for 4 weeks dextroamphetamine-amphetamine 10 mg tablet 15 mg PO DAILY 90 Days Qty: 135 0RF aspirin 81 mg tablet,delayed release (DR/EC) 81 mg PO DAILY Trulicity 3 mg/0.5 mL pen injector 3 mg subcut QWEEK metformin 500 mg tablet extended release 24 hr 2,000 mg PO QDAY 90 Days Qty: 360 1RF peg 3350-electrolytes [Golytely] 236-22.74-6.74 -5.86 gram recon soln 240 ml PO Q10M Qty: 4000 0RF Rx Instructions: until fecal effluent is clear Follow Up/Referrals: Ramesh Castillo PA-C [Primary Care Provider] - Stand Alone Forms: [employer] Info Instructions
[2024-04-09 08:38] LABS: Basophils Absolute Auto 0.01 K/uL (0.00-0.30); Basophils Percent Auto 0.2 % (0.0-3.0); Eosinophils Absolute Auto 0.12 K/uL (0.00-0.50); Hematocrit 33.7 % (33.0-51.0); Hemoglobin* 11.8 gm/dL (12.0-16.0); Immature Granulocytes Abs Auto 0.03 K/uL (0.00-0.30); Immature Granulocytes Pct Auto 0.5 %; Lymphocytes Percent Auto 16.4 % (20-44); Mean Corpuscular HGB Conc 35 gm/dL (32-36); Mean Corpuscular Hemoglobin 32 pg (26-34); Mean Corpuscular Volume 91 fL (80-100); Monocytes Percent Auto 4.9 % (0.0-11.0); Platelet Count* 198 K/uL (140-440); White Blood Count* 6.11 K/uL (4.50-11.00)
[2024-04-09 08:44] LABS: Slide Review Reflex No
[2024-04-09 08:47] LABS: Chloride* 101 mmol/L (96-114)
[2024-04-09 08:48] LABS: Albumin* 4.8 g/dL (3.3-5.0); Potassium* 4.2 mmol/L (3.6-5.1); Sodium* 138 mmol/L (135-149)
[2024-04-09 08:50] LABS: Anion Gap 12 mEq/L (7-15); Carbon Dioxide* 25 mmol/L (20-32); Creatinine* 0.6 mg/dL (0.5-1.5); Est. Creatinine Clearance* 113.16; Estimated Glomerular Filt Rate 109 ml/min
[2024-04-09 08:51] LABS: Alanine Aminotransferase* 30 U/L (4-35); Alkaline Phosphatase* 58 U/L (40-150); Aspartate Amino Transferase* 32 U/L (12-35); Bilirubin Direct* 0.2 mg/dL (0.0-0.5); Bilirubin Total* 2.7 mg/dL (0.1-1.5); Blood Urea Nitrogen* 14 mg/dL (7-30); Calcium* 9.5 mg/dL (8.4-10.6); Glucose* 237 mg/dL (60-115); Lipase* 68 U/L (23-300); Total Protein* 7.4 g/dL (6.0-8.3)
[2024-04-09 09:12] VITALS: BP 141/79; PULSE 106; RESP 18; O2SAT 96
[2024-04-09 09:17] VITALS: TEMP 37.3
[2024-04-09 09:30] LABS: Erythrocyte SedimentationRate* 9 mm/hr (2-20)
[2024-04-09 09:40] LABS: Vitamin B12* 290 pg/mL (243-894)
== END 2024-04-09 10:22 | disposition home or self-care (01) ==
PROVIDERS: Emergency Provider Emergency Medicine Emergency Medical Services; PCP Physician Assistant Medical
DX: R10.9 Unspecified abdominal pain (principal); R19.7 Diarrhea, unspecified
CPT/HCPCS: 36415; 74177; 80048; 80076; 82607; 83690; 85025; 85651; 99284; 99285; Q9967

== ENCOUNTER 2024-05-07 07:59 | Outpatient (CLI) | payer BC, SELFPAY ==
--- NOTE | 2024-05-07 09:37 | W.ANESCHARGE ---
Anesthesia Charges Start Date/Time Anesthesia Start Date: 05/07/24 Anesthesia Start Time: 08:51 Stop Date/Time Anesthesia Stop Date: 05/07/24 Anesthesia Stop Time: 09:35
== END 2024-05-07 08:00 | disposition home or self-care (01) ==
LOC: OP CLINIC 07:59
PROVIDERS: PCP Physician Assistant Medical; Visit Provider Surgery
DX: Z12.11 Encounter for screening for malignant neoplasm of colon (principal); K64.4 Residual hemorrhoidal skin tags; D12.0 Benign neoplasm of cecum; D12.2 Benign neoplasm of ascending colon; D12.3 Benign neoplasm of transverse colon; D12.5 Benign neoplasm of sigmoid colon
CPT/HCPCS: 00811; 00812; 45380; 45385; 88305; J2704

== ENCOUNTER 2024-06-16 06:13 | Inpatient (IN) | payer BC, SELFPAY ==
[2024-06-16] VITALS (25 sets, daily range): BP systolic 113–175; BP diastolic 63–90; PULSE 90–106; RESP 12–20; TEMP 36.4–36.7; O2SAT 90–100; BMI 27.1
[2024-06-16] MEDS: LACTATED RINGERS 1000 ML 1,000 ML 100 ML IV (07:20)
--- NOTE | 2024-06-16 07:22 | P.GSOP_ITS ---
Operative Note Date of procedure: 06/16/24 Pre-op diagnosis: 1. Cecal tubulovillous adenoma. Post-op diagnosis: Same Type of Procedure: 1. Laparoscopic right hemicolectomy. 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 This was adjacent to appendiceal orifice and ileocecal valve. The polyp was not removed due to its size and location. Patient was then seen in clinic for discussion of right hemicolectomy. Patient has a previous history of laparoscopic cholecystectomy with ERCP. On clinical exam she had no tenderness to palpation in the abdomen and the abdomen was not distended. She had well healed surgical incisions consistent with her surgical history. Given patient's clinical history and her colonoscopy finding, laparoscopic right hemicolectomy was recommended. The procedure was discussed in detail. The risks associated procedure including infection, bleeding, injury to intra-abdominal organs, anastomotic leak, and the need for additional procedures were all discussed with the patient, and she agreed to proceed. Procedure Description: After discussing the risks and benefits of the procedure, the patient signed informed consent.? The operative site was marked and the patient was brought to the operating room and placed on the operating table in supine position.? Care was taken to pad the patient's pressure points.?? The patient was then intubated by anesthesia.??TAP blocks were administered by Anesthesia. Renteria catheter was placed under sterile conditions. The operative site was then prepped and draped in the usual sterile fashion.? A time-out was then performed. A 5-mm laparoscopy port was placed in the left upper quadrant guided by a 5-mm laparoscope placed into a translucent trochar. Passage through the layers of the abdominal wall was visualized with the laparoscope. A pneumoperitoneum was established. A 30-degree 5-mm laparoscope was advanced into the abdomen. The abdomen was briefly surveyed. Adhesions was seen in the mid lower abdomen. A small midline infraumbilical hernia was also seen with intra-abdominal fat incarcerated in the hernia. A 12-mm port and a 5-mm port were placed in the left low quadrant and suprapubically, respectively, under direct visualization by laparoscope. An additional 5 mm port was placed in the right upper quadrant under direct visualization. Left upper quadrant entrance port was then examined intraabdominally by placing the camera through the left lower quadrant port and no intraabdominal injury was seen. Abdominal wall adhesions were then lysed with Harmonic scalpel. The incarcerated fat was reduced from the lower midline hernia. The cecum was identified and terminal ileum was identified and retracted medially. The cecum was floppy with some adhesions to the abdominal wall. The cecum was grasped and retracted towards the abdominal wall. The ileocolic vascular pedicle was then identified. The peritoneum over the vascular pedicle was scored with Harmonic scalpel. The vascular pedicle was skeletonized circumferentially with Harmonic scalpel. It was then stapled with a vascular load of Endo-KD stapler. When the stapler was removed, the staple line was examined, and no bleeding was seen from the staple line. We then continued with the medial dissection. The peritoneum of the ascending colon was incised with Harmonic scalpel. This dissection was carried towards the hepatic flexure. Duodenum was visualized and care was taken not to injure the duodenum. We then shifted our attention to the transverse colon. The omentum was grasped and retracted cephalad and towards the abdominal wall. Avascular plane was identified between the omentum and transverse colon. This was incised with Harmonic scalpel. This dissection was carried towards the hepatic flexure with Harmonic scalpel. The adhesions of posterior transverse colon mesentery to the retroperitoneum were also divided with Harmonic scalpel. This dissection was carried from the midline towards the right lateral abdominal wall. We then continued our dissection along the White line of Toldt on the right lateral abdominal wall until the right colon was mobile and free from retroperitoneum. Hemostasis throughout this dissection was achieved with cautery and was minimal. The terminal ileum was mobilized off the lateral abdominal wall with Harmonic scalpel. The right ureter was visualized, and care was taken not to injure it. The appendix was visualized and was not inflamed. The right colon and terminal ileum were then examined and were mobile for anastomosis. We then proceeded with extracorporeal portion of this procedure. The appendix was grasped with a locking grasper. A midline supraumbilical incision was made with a scalpel. Subcutaneous fat and fascia were divided with cautery until the abdomen was entered. A small Misael retractor was then placed into this supraumbilical midline incision. The laparoscopic instruments were covered with towels and the abdomen was also covered with towels to prevent contamination. The cecum, ascending colon, and terminal ileum were eviscerated and were very mobile. No bleeding was noted from mesentery. The terminal ileum just proximal to the ileal fat pad was elected as a point for division of ileum. The terminal ileal mesentery distal to that area was then divided with clamps and Vicryl ties. The proximal transverse colon near the hepatic flexure was elected as the spot to divide the transverse colon. Transverse colon mesentery in this area was divided with clamps and ties. Two separate blue loads of KD stapler were then used to divide terminal ileum and transverse colon. The right colon was then passed off the field. It was opened on the back table and cecal polyp was visualized in the specimen. The right colon was sent to pathology. Bleeding was seen from the transverse colon staple line and that was controlled with [id number] 3-0 silk sutures. We then continued with side to side functional end to end ileocolic anastomosis. A stay suture was placed using 3-0 silk near the ileal and colonic staple lines. The enterotomy was then made less than 1 cm proximal to the ileal staple line with cautery. One arm of the KD stapler was placed into the ilium. A colotomy was then made less than 1 cm distal to the colonic staple line, and the second arm of the KD stapler was placed into the colon. The transverse colon and terminal ileum were lined up on the anti mesenteric side to create the anastomosis. The anastomosis was then created with a blue load of 100 KD stapler. The staple line was examined from the inside and no bleeding was identified. The common enterotomy was then closed with interrupted Lembert sutures using 3-0 silk. 2 crotch stitches were placed. The anastomosis was w ell perfused and was patent on palpation. The right mesenteric defect extended towards the retroperitoneum and I was not able to see the bottom of the peritoneal edge. The mesenteric defect was not closed. At this point the anastomosis was placed into the abdomen, and we removed all the dirty instruments and towels from the field. The Carrie retractor was removed, and we proceeded with midline laparotomy fascial closure. Surgeon and assistants changed gloves. The supraumbilical midline laparotomy fascia was then closed with 2 running 0-0 PDS sutures. The abdomen was then insufflated again with carbon dioxide. Anastomosis was examined and was in the right upper quadrant. No bleeding was identified in the surgical field. Omentum was placed over the anastomosis. The 12-mm port was withdrawn and the fascial defect was closed with 0-0 Vicryl stitch using Davis Lanie needle under direct visualization. The 5-mm ports were removed under direct visualization. The left upper quadrant port was used to evacuate the pneumoperitoneum and then withdrawn. Subcutaneous fat and dermis of the supraumbilical laparotomy incision were reapproximated with 3-0 Vicryl sutures. The skin incisions were closed with 4-0 monocryl. Steri-Strips and sterile pressure dressings were applied over the incisions. All counts were correct at the end of the case. The patient tolerated this procedure well and was transferred to PACU in stable condition. Findings: Small lower midline ventral hernia noted, incarcerated omental fat was reduced but the hernia defect was not repaired. The right colon was opened on the back table and cecal polyp was visualized. This was confined to the mucosa grossly. Anesthesia: GETA Surgeon: Cortez Campbell MD Estimated blood loss (mL): 15 Additional Specimen Information: 1. Right colon. Condition: stable Disposition: PACU
[2024-06-16] MEDS: SODIUM CHLORIDE 0.9 % (FLUSH) 10 ML SYRINGE IVF (07:25)
[2024-06-16] MEDS: ERTAPENEM 1 GM inj IVPB (07:42)
--- NOTE | 2024-06-16 07:56 | W.ANESCHARGE ---
Anesthesia Charges Start Date/Time Anesthesia Start Date: 06/16/24 Anesthesia Start Time: 07:29 Stop Date/Time Anesthesia Stop Date: 06/16/24 Anesthesia Stop Time: 11:00
--- NOTE | 2024-06-16 10:58 | W.ANESCHARGE ---
Anesthesia Charges Start Date/Time Anesthesia Start Date: 06/16/24 Anesthesia Start Time: 07:29 Stop Date/Time Anesthesia Stop Date: 06/16/24 Anesthesia Stop Time: 11:00
--- NOTE | 2024-06-16 10:59 | P.NB_ITS ---
Nerve Block Nerve Block Time Seen by Provider: 07:40 Date Seen: 06/16/24 Type of block requested by surgeon for post-operative analgesia: TAP Side: bilateral Time out performed: Yes Verification of patient name: Yes Verification of date of : Yes Site marking: site marked Name of person performing procedure: Cliff Continuous monitoring Was continuous monitoring of O2 sat, B/P, threat monitoring analyst, recorded every 15 minutes?: Yes Procedure Checklist: sterile prep, needles and gloves Ultrasound guided. Images saved: Yes Medications given in 5ml increments after negative aspiration: Marcaine %: 0.25 mL: 30 Needle gauge: 20 and Exparel mL: 10 Patient tolerated procedure well: Yes Additional comments: Needle noted between internal oblique and transversus abdominus. Local spread visualized Block Charges Block Charge (with Pro Fee): TAP Bilateral Use of Ultrasound Machine for Block: Yes- US Guidance/pain block
[2024-06-16] MEDS: fentaNYL 100 MCG/2 ML inj 50 MCG IVP ×2 (11:14→11:22)
[2024-06-16] MEDS: HYDROmorphone 0.5 mg/0.5 ml inj IVP ×6 (12:03→21:17)
--- NOTE | 2024-06-16 14:10 | PM.IMCN1 ---
Date of Consult Consult date: 06/16/24 Requesting Physician: General Surgery Primary Care Provider: Ramesh Castillo PA-C Consult Narrative Reason for consult: Med management postop Narrative: HOSPITALIST CONSULT Procedure: Laparoscopic right hemicolectomy The hospital medicine team was asked by the general surgery team to manage the patient's type 2 diabetes, hypertension, hypothyroidism, ADD. There have been no perioperative complications. I have updated and reviewed the active medical problems, past medical history, past surgical history, social history, allergies and medications in our electronic EMR. This includes a cross reference to care everywhere in [facility] and with [facility] databases. From her PCPs H&P in May: Lisa is 49 year old old who presents for preop examination for right hemicolectomy scheduled on 06/16/24 at [place]. Patient has had surgery in the past with no complications with anesthesia. She has DMII, HTN, hypothyroid, ADD. Denies any cardiac or pulmonary disease. No bleeding or seizure disorder. Patient understands avoiding NSAIDs, asa, and vitamins a few days prior to surgery. Denies any history of chest pain or shortness of breath. Patient is not a smoker. Patient has not had any recent illnesses, fevers, abdominal pain, constipation, +diarrhea. PHYSICAL EXAM: CODE STATUS: FULL CODE CONSTITUTIONAL: Conversive, good historian. A/O. Knows setting and context. VITAL SIGNS: see record. HEENT: Normocephalic, atraumatic. PERRL, EOMI, conjunctivae pink, no scleral icterus. Ears and nose externally normal. Pharynx normal. NECK: No JVD. No carotid bruit, no thyromegaly, no adenopathy. CHEST: Clear to auscultation bilaterally HEART: S1 and S2 normal. ABDOMEN: Appropriately tender. No bowel sounds. EXTREMITIES: No edema. NEURO: Cranial nerves intact. Mentation normal. Normal affect. SKIN: No rashes, petechiae, concerning changes PSYCHIATRIC: Mentation normal. INVESTIGATIONS: EMR Reviewed; Pre-OP Reviewed DISPOSITION: DVT: SCDs per surgery GI: Sips and chips PFSH [facility] Medical History (Updated 06/16/24 @ 15:59 by Sera Miller MD) Hidradenitis ?L73.2 - Hidradenitis suppurativa (ICD-10) Fatty liver ?K76.0 - Fatty (change of) liver, not elsewhere classified (ICD-10) Insomnia ?G47.00 - Insomnia, unspecified (ICD-10) Hypertriglyceridemia ?E78.1 - Pure hyperglyceridemia (ICD-10) Attention deficit disorder ?F98.8 - Other specified behavioral and emotional disorders with onset usually occurring in childhood and adolescence (ICD-10) Diabetic neuropathy ?E11.40 - Type 2 diabetes mellitus with diabetic neuropathy, unspecified (ICD-10) Melanoma ?C43.9 - Malignant melanoma of skin, unspecified (ICD-10) Hypothyroidism ?E03.9 - Hypothyroidism, unspecified (ICD-10) HTN (hypertension) ?I10 - Essential (primary) hypertension (ICD-10) Type 2 diabetes mellitus ?E11.9 - Type 2 diabetes mellitus without complications (ICD-10) Constipation ?K59.00 - Constipation, unspecified (ICD-10) Anxiety ?F41.9 - Anxiety disorder, unspecified (ICD-10) Tachycardia ?R00.0 - Tachycardia, unspecified (ICD-10) RICKIE (acute kidney injury) ?N17.9 - Acute kidney failure, unspecified (ICD-10) Acute pancreatitis ?K85.90 - Acute pancreatitis without necrosis or infection, unspecified (ICD-10) Acute cholecystitis ?K81.0 - Acute cholecystitis (ICD-10) Choledocholithiasis ?K80.50 - Calculus of bile duct without cholangitis or cholecystitis without obstruction (ICD-10) Abnormal EKG ?R94.31 - Abnormal electrocardiogram [ECG] [EKG] (ICD-10) Plantar wart of left foot ?B07.0 - Plantar wart (ICD-10) Surgical History (Updated 06/16/24 @ 15:57 by Sera Miller MD) S/P right hemicolectomy ?Z90.49 - Acquired absence of other specified parts of digestive tract (ICD-10) Status post laparoscopic cholecystectomy ?Z90.49 - Acquired absence of other specified parts of digestive tract (ICD-10) S/P ERCP ?Z98.890 - Other specified postprocedural states (ICD-10) History of foot surgery ?Z98.890 - Other specified postprocedural states (ICD-10) History of reduction mammoplasty ?Z98.890 - Other specified postprocedural states (ICD-10) History of section ?Z98.891 - History of uterine scar from previous surgery (ICD-10) Family History Other Diabetes Thyroid disease Social History Narrative: , spouse Robert is here with her today 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 Last had alcohol at the end of 2022. Denies recreational drugs. What is your current living situation?: I presently have a place to live Problems where you live: no known problems Problems where you live details: no problems In the past 12 months, utilities in danger of being shut off: no In the past 12 mos, have been you worried that your food would run out before you had money to buy more?: never true In the past 12 mos, the food you bought just didn't last and you didn't have money to buy more?: never true Highest level of school completed/degree received: Bachelor's degree Smoking Status: Never smoker Do you use any of these nicotine containing products: None Second hand tobacco smoke exposure: No How often do you have a drink containing alcohol: never How often do you have six or more drinks on one occasion: Never AUDIT-C Alcohol total score: 0 Non-prescribed substance use: denies use Caffeine: Yes How often does anyone, including family, friends and others, physically hurt you: never How often does anyone, including family, friends and others, insult or talk down to you: never How often does anyone, including family, friends and others, threaten you with harm: never How often does anyone, including family, friends and others, scream or curse at you: never service: No Meds Home Medications and Allergies Home Medications ?Medication ?Instructions ?Recorded ?Confirmed ?Type aspirin 81 mg tablet,delayed 81 mg PO DAILY 02/21/22 06/16/24 History release cholecalciferol (vitamin D3) 25 25 mcg PO DAILY 09/13/22 06/16/24 History mcg (1,000 unit) tablet carvedilol 12.5 mg tablet 12.5 mg PO BID 04/02/24 06/16/24 History lisinopril 10 mg tablet 10 mg PO DAILY 04/02/24 06/16/24 History glipizide 5 mg tablet, extended 5 mg PO DAILY 06/16/24 06/16/24 History release 24 hr metformin 500 mg tablet,extended 2,000 mg PO DAILY 06/16/24 06/16/24 History release 24 hr Allergies Allergy/AdvReac Type Severity Reaction Status Date / Time Sulfa (Sulfonamide Allergy Mild Hives Verified 05/25/24 08:41 Antibiotics) Exam Const: Vital Signs, click to edit/add: Vital Signs - 24 hr 06/16/24 06:34 06/16/24 10:55 06/16/24 11:00 Temperature 97.9 F 98.0 F Pulse Rate 90 93 93 Respiratory Rate 20 12 16 Blood Pressure 134/82 134/82 133/79 Pulse Oximetry 96 99 100 Oxygen Delivery Me thod OxyMask OxyMask Oxygen Flow Rate 10 10 06/16/24 11:05 06/16/24 11:10 06/16/24 11:15 Temperature 97.8 F Pulse Rate 91 91 91 Respiratory Rate 18 18 16 Blood Pressure 133/63 135/84 132/84 Pulse Oximetry 100 100 100 Oxygen Delivery Me thod OxyMask OxyMask Room Air Oxygen Flow Rate 6 6 06/16/24 11:20 06/16/24 11:25 06/16/24 11:30 Temperature 97.7 F Pulse Rate 93 90 92 Respiratory Rate 14 14 14 Blood Pressure 131/84 129/83 130/82 Pulse Oximetry 99 100 100 Oxygen Delivery Me thod OxyMask OxyMask OxyMask Oxygen Flow Rate 10 10 6 06/16/24 11:35 06/16/24 11:39 06/16/24 11:44 Temperature 97.7 F 97.7 F Pulse Rate 93 95 96 Respiratory Rate 16 18 18 Blood Pressure 131/83 123/81 126/79 Pulse Oximetry 98 95 90 Oxygen Delivery Me thod Room Air Room Air Room Air Oxygen Flow Rate 06/16/24 11:44 06/16/24 11:59 06/16/24 12:14 Temperature 97.7 F 97.7 F 97.7 F Pulse Rate 96 96 95 Respiratory Rate 18 16 16 Blood Pressure 126/79 128/74 138/88 Pulse Oximetry 90 98 98 Oxygen Delivery Me thod Room Air Nasal Cannula Nasal Cannula Oxygen Flow Rate 2 2 06/16/24 12:29 Temperature 97.7 F Pulse Rate 97 Respiratory Rate 16 Blood Pressure 136/83 Pulse Oximetry 98 Oxygen Delivery Me thod Nasal Cannula Oxygen Flow Rate 2 Assessment and Plan Assessment and plan (1) S/P right hemicolectomy: Problem comment: Adrian 06/16/24 Laparoscopic; for cecal tubulovillous adenoma Hospital medicine team is happy to follow this patient through to discharge. Status: Acute (2) Tubulovillous adenoma: Problem comment: -on initial colonoscopy the biopsy showed to be a tubulovillous adenoma. Negative for high-grade dysplasia. Pathology from today is still pending. Status: Acute (3) Type 2 diabetes mellitus: Problem comment: - HgbA1C 5.3% on 04/02/24 - sips and chips until bowel function returns. - q6H accuchecks and ISS. Status: Chronic (4) Diabetic neuropathy: Problem comment: -continue gabapentin, patient would like this to be p.r.n. since she will be on opioids Status: Chronic (5) Iron deficiency anemia: Problem comment: -hemoglobin on 05/25 was 11.1, MCV was normal. -adding iron levels for morning labs Status: Acute (6) HTN (hypertension): Problem comment: -postop blood pressure 136/83. Cautiously will continue the carvedilol and lisinopril -holding lisinopril if borderline low blood pressures are present, hold parameters in order Status: Acute (7) Fatty liver: Problem comment: 07/07/23: seen on RUQ US. Follow-up MRA abdomen showed mild fatty change, liver normal in size and shape. March of 2024, liver was unremarkable on CT scan. Status: Acute (8) Hypothyroidism: Problem comment: - 04/02/24 TSH 1.79 - Continue synthroid Status: Chronic (9) Attention deficit disorder: Problem comment: Patient is okay to be on Adderall holiday while inpatient Status: Chronic (10) Insomnia: Problem comment: - prn melatonin, p.r.n. trazodone Status: Acute
--- NOTE | 2024-06-16 16:29 | PM.EN ---
Chart Event Note Date Seen: 06/16/24 Chart Event Note: right big toe; noted on surgery day. diabetic foot ulcer, minimal. discussed with nursing to clean and put nonstick dressing and follow.
[2024-06-16] MEDS: 0.9 % SODIUM CHLORIDE 500 ML 500 ML IV (18:05)
[2024-06-16] MEDS: INSULIN ASPART 100 UNIT/ML SUBCUT ×2 (18:26→21:22)
--- NOTE | 2024-06-16 19:48 | PC.NURSE ---
Patient a/o, tolerating clears. Renteria patent and draining. Patient encouraged to drink fluids. 500cc bolus administered for Tachycardia. PRN dilauded administered for pain ranging 7/10 see emar. Dressing to midline C/D/I. four steri strips covering lap sites C/D/I. wound on right great toe, open to air but covered with non-adhesive bandage and cleaned with Vashe when patient is ambulating. Patient has been encouraged to ambulate hallways as much as possible.
[2024-06-16] MEDS: carvediloL 6.25 MG TABLET 12.5 MG PO (21:24)
[2024-06-16] MEDS: HYDROCODONE-ACETAMIN 5-325 MG 1 TAB PO (22:20)
[2024-06-16] MEDS: TRAZODONE HCL 50 MG TABLET PO (22:20)
[2024-06-17] VITALS (8 sets, daily range): BP systolic 106–119; BP diastolic 70–74; PULSE 85–95; RESP 16–18; TEMP 36.4–37; O2SAT 95–96
[2024-06-17] MEDS: HYDROmorphone 0.5 mg/0.5 ml inj IVP ×3 (01:48→16:10)
[2024-06-17] MEDS: HYDROCODONE-ACETAMIN 5-325 MG 1 TAB PO (04:58)
[2024-06-17] MEDS: LEVOTHYROXINE 88 MCG TABLET PO (06:13)
--- NOTE | 2024-06-17 06:25 | PC.NURSE ---
Pt alert and oriented x3. Afebrile. Pt reports 2-6/10 pain in abdomen, pain managed with PRN medications. Pt?s midline incision and 4 lap sites are CDI. Pt walked halls x1 overnight, tolerated well. Pt's valle catheter is patent and draining. Pt is tolerating a clear liquid diet but reports that she has not passed gas yet, bowel sounds are hypoactive. ???
[2024-06-17 06:31] LABS: Ionized Calcium* 1.14 mmol/L (1.11-1.30)
[2024-06-17 06:34] LABS: Basophils Absolute Auto 0.01 K/uL (0.00-0.30); Basophils Percent Auto 0.1 % (0.0-3.0); Eosinophils Absolute Auto 0.05 K/uL (0.00-0.50); Eosinophils Percent Auto 0.6 % (0.0-7.0); Hematocrit 29.2 % (33.0-51.0); Immature Granulocytes Abs Auto 0.01 K/uL (0.00-0.30); Immature Granulocytes Pct Auto 0.1 %; Lymphocytes Absolute Auto 1.65 K/uL (0.90-2.90); Lymphocytes Percent Auto 21.4 % (20-44); Mean Corpuscular HGB Conc 34 gm/dL (32-36); Mean Corpuscular Hemoglobin 31 pg (26-34); Mean Corpuscular Volume 91 fL (80-100); Monocytes Percent Auto 8.7 % (0.0-11.0); Neutrophils Absolute Auto 5.31 K/uL (1.7-7.0); Neutrophils Percent Auto 69.1 % (42.0-72.0); Platelet Count* 207 K/uL (140-440); RDW Coefficient of Variation % 14.6 % (11.5-15.5)
[2024-06-17 06:35] LABS: Slide Review Reflex No
[2024-06-17 06:47] LABS: Hemoglobin A1C* 4.3 % (0-5.6)
[2024-06-17 06:49] LABS: Chloride* 100 mmol/L (96-114); Potassium* 3.8 mmol/L (3.6-5.1); Sodium* 136 mmol/L (135-149)
[2024-06-17 06:51] LABS: Creatinine* 0.5 mg/dL (0.5-1.5); Est. Creatinine Clearance* 135.79; Estimated Glomerular Filt Rate 114 ml/min
[2024-06-17 06:52] LABS: Anion Gap 6 mEq/L (7-15); Blood Urea Nitrogen* 6 mg/dL (7-30); Calcium* 8.8 mg/dL (8.4-10.6); Carbon Dioxide* 30 mmol/L (20-32); Glucose* 144 mg/dL (60-115)
[2024-06-17 06:59] LABS: Iron* 37 ug/dL (37-170)
[2024-06-17 07:09] LABS: Percent Iron Saturation 10 % (20-50); Total Iron Binding Capacity 364 ug/dL (265-497)
[2024-06-17 07:31] LABS: Thyroid Stimulating Hormone* 0.899 uIU/mL (0.270-4.20)
[2024-06-17] MEDS: ACETAMINOPHEN 325 MG TABLET 650 MG PO ×3 (09:14→19:47)
[2024-06-17] MEDS: LIDOCAINE 5% PATCH 1 PATCH TRANSDERMA (09:14)
[2024-06-17] MEDS: carvediloL 6.25 MG TABLET 12.5 MG PO ×2 (09:32→21:11)
--- NOTE | 2024-06-17 10:43 | P.IMPN_ITS ---
Progress Note: A&P Assessment and plan (1) S/P right hemicolectomy: Problem details: Adrian 06/16/24 Laparoscopic; for cecal tubulovillous adenoma Hospital medicine team is happy to follow this patient through to discharge. Status: Acute (2) Tubulovillous adenoma: Problem details: -on initial colonoscopy the biopsy showed to be a tubulovillous adenoma. Negative for high-grade dysplasia. Pathology from today is still pending. Status: Acute (3) Type 2 diabetes mellitus: Problem details: - HgbA1C 5.3% on 04/02/24 - sips and chips until bowel function returns. - q6H accuchecks and ISS. Status: Chronic (4) Diabetic neuropathy: Problem details: -continue gabapentin, patient would like this to be p.r.n. since she will be on opioids Status: Chronic (5) Iron deficiency anemia: Problem details: -hemoglobin on 05/25 was 11.1, MCV was normal. -adding iron levels for morning labs Status: Acute (6) HTN (hypertension): Problem details: -postop blood pressure 136/83. Cautiously will continue the carvedilol and lisinopril -holding lisinopril if borderline low blood pressures are present, hold parameters in order Status: Acute (7) Fatty liver: Problem details: 07/07/23: seen on RUQ US. Follow-up MRA abdomen showed mild fatty change, liver normal in size and shape. March of 2024, liver was unremarkable on CT scan. Status: Acute (8) Hypothyroidism: Problem details: - 04/02/24 TSH 1.79 - Continue synthroid Status: Chronic (9) Attention deficit disorder: Problem details: Patient is okay to be on Adderall holiday while inpatient Status: Chronic (10) Insomnia: Problem details: - prn melatonin, p.r.n. trazodone Status: Acute Plan As above Time Spent With Patient Total time spent: Today I spent 50 minutes seeing the patient, reviewing [facility] and EPIC notes/diagnostics, discussing the care plan with our care time that includes social work, PT/OT, pharmacy, RT, fdc and documenting my impressions and plan in the medical record. Subjective Date Seen: 06/17/24 Interval history: Patient was seen at bedside today. flare stitcher patient was complaining of pain so I switched her [place] to a higher dose of oxycodone and scheduled acetaminophen, in addition to a lidocaine patch and since that time pain was controlled. Her fall is catheter was removed today. Exam Narrative: Exam Narrative: Physical exam GENERAL: Comfortable, no acute distress. HEAD AND NECK: Atraumatic, normocephalic CARDIOVASCULAR: RRR. Normal S1, S2. No murmurs. RESPIRATORY: Clear to auscultation B/L. Good air entry B/L. No wheezes or rhonchi. GASTROINTESTINAL: Not distended, Dressing, clean NEUROLOGY: Alert, awake, oriented. Normal speech. PSYCH: Normal mood, normal affect. Const: Vital Signs, click to edit/add: Vital Signs - 24 hr 06/16/24 10:55 06/16/24 11:00 06/16/24 11:05 Temperature 98.0 F Pulse Rate 93 93 91 Pulse Rate [Pulse Oximeter] Respiratory Rate 12 16 18 Blood Pressure 134/82 133/79 133/63 Blood Pressure [Ri ght Arm] Pulse Oximetry 99 100 100 Oxygen Delivery Me thod OxyMask OxyMask OxyMask Oxygen Flow Rate 10 10 6 06/16/24 11:10 06/16/24 11:15 06/16/24 11:20 Temperature 97.8 F Pulse Rate 91 91 93 Pulse Rate [Pulse Oximeter] Respiratory Rate 18 16 14 Blood Pressure 135/84 132/84 131/84 Blood Pressure [Ri ght Arm] Pulse Oximetry 100 100 99 Oxygen Delivery Me thod OxyMask Room Air OxyMask Oxygen Flow Rate 6 10 06/16/24 11:25 06/16/24 11:30 06/16/24 11:35 Temperature 97.7 F Pulse Rate 90 92 93 Pulse Rate [Pulse Oximeter] Respiratory Rate 14 14 16 Blood Pressure 129/83 130/82 131/83 Blood Pressure [Ri ght Arm] Pulse Oximetry 100 100 98 Oxygen Delivery Me thod OxyMask OxyMask Room Air Oxygen Flow Rate 10 6 06/16/24 11:39 06/16/24 11:44 06/16/24 11:44 Temperature 97.7 F 97.7 F 97.7 F Pulse Rate 95 96 96 Pulse Rate [Pulse Oximeter] Respiratory Rate 18 18 18 Blood Pressure 123/81 126/79 126/79 Blood Pressure [Ri ght Arm] Pulse Oximetry 95 90 90 Oxygen Delivery Me thod Room Air Room Air Room Air Oxygen Flow Rate 06/16/24 11:59 06/16/24 12:14 06/16/24 12:29 Temperature 97.7 F 97.7 F 97.7 F Pulse Rate 96 95 97 Pulse Rate [Pulse Oximeter] Respiratory Rate 16 16 16 Blood Pressure 128/74 138/88 136/83 Blood Pressure [Ri ght Arm] Pulse Oximetry 98 98 98 Oxygen Delivery Me thod Nasal Cannula Nasal Cannula Nasal Cannula Oxygen Flow Rate 2 2 2 06/16/24 12:59 06/16/24 13:15 06/16/24 13:45 Temperature 97.7 F 97.7 F 97.8 F Pulse Rate 106 H 102 H 103 H Pulse Rate [Pulse Oximeter] Respiratory Rate 16 16 18 Blood Pressure 142/90 H 131/90 H 175/82 H Blood Pressure [Ri ght Arm] Pulse Oximetry 98 96 92 Oxygen Delivery Me thod Nasal Cannula Nasal Cannula Nasal Cannula Oxygen Flow Rate 1 1 1 06/16/24 14:00 06/16/24 14:57 06/16/24 14:57 Temperature 97.8 F Pulse Rate 103 H Pulse Rate [Pulse Oximeter] 100 Respiratory Rate 16 18 18 Blood Pressure 132/84 Blood Pressure [Ri ght Arm] Pulse Oximetry 95 96 Oxygen Delivery Me thod Nasal Cannula Nasal Cannula Oxygen Flow Rate 1 1 06/16/24 15:00 06/16/24 16:00 06/16/24 17:00 Temperature 97.8 F 97.8 F 97.8 F Pulse Rate 101 H 102 H 100 Pulse Rate [Pulse Oximeter] Respiratory Rate 18 18 18 Blood Pressure 117/74 117/76 113/84 Blood Pressure [Ri ght Arm] Pulse Oximetry 96 96 96 Oxygen Delivery Me thod Nasal Cannula Room Air Room Air Oxygen Flow Rate 1 06/16/24 20:28 06/16/24 22:25 06/17/24 00:30 Temperature 98.0 F 97.6 F Pulse Rate Pulse Rate [Pulse Oximeter] 99 98 Respiratory Rate 18 16 16 Blood Pressure Blood Pressure [Ri ght Arm] 135/81 118/79 Pulse Oximetry 94 94 96 Oxygen Delivery Me thod Room Air Room Air Room Air Oxygen Flow Rate 06/17/24 00:30 06/17/24 07:00 06/17/24 08:00 Temperature 97.6 F Pulse Rate Pulse Rate [Pulse Oximeter] 95 89 Respiratory Rate 18 16 16 Blood Pressure Blood Pressure [Ri ght Arm] 119/74 106/71 Pulse Oximetry 96 95 95 Oxygen Delivery Me thod Room Air Room Air Room Air Oxygen Flow Rate Labs Labs: Laboratory Results - last 24 hr 06/17/24 06:01 WBC 7.70 RBC 3.20 L Hgb 10.0 L Hct 29.2 L MCV 91 MCH 31 MCHC 34 RDW Coeff of Adelita 14.6 Plt Count 207 Neut % (Auto) 69.1 Lymph % (Auto) 21.4 [place] % (Auto) 8.7 Eos % (Auto) 0.6 Baso % (Auto) 0.1 Neut # (Auto) 5.31 Lymph # (Auto) 1.65 [place] # (Auto) 0.70 Eos # (Auto) 0.05 Baso # (Auto) 0.01 Abs Immat Gran (auto) 0.01 Imm/Tot Granulo (auto) 0.1 Sodium 136 Potassium 3.8 Chloride 100 Carbon Dioxide 30 Anion Gap 6 L BUN 6 L Creatinine 0.5 Estimated Creat Clear 135.79 Estimated GFR 114 Glucose 144 H Hemoglobin A1c 4.3 Calcium 8.8 Ionized Calcium Oli 1.14 Magnesium 2.0 Iron 37 TIBC 364 % Saturation 10 L TSH 0.899
[2024-06-17] MEDS: OXYCODONE 5 MG TABLET 10 MG PO ×2 (11:15→19:48)
--- NOTE | 2024-06-17 13:20 | P.GSPN_ITS ---
Subjective Subjective Date Seen: 06/17/24 Interval history: Patient is doing well postoperatively. She tolerated clears. Her Renteria catheter came out today and she urinated small amount after the Renteria was removed. She ambulated several times. She does complain of pain and felt like [place] is not helping her pain. She was switched to oxycodone and Tylenol. Exam Narrative: Exam Narrative: Abdomen is soft, not distended, tender to palpation near the midline incision. Laparoscopic incisions are covered with clean steroids. The midline laparotomy incision dressing is clean and dry. Const: Vital Signs, click to edit/add: Vital Signs - 24 hr 06/16/24 13:45 06/16/24 14:00 06/16/24 14:57 Temperature 97.8 F 97.8 F Pulse Rate 103 H 103 H Pulse Rate [Pulse Oximeter] 100 Respiratory Rate 18 16 18 Blood Pressure 175/82 H 132/84 Blood Pressure [Ri ght Arm] Pulse Oximetry 92 95 Oxygen Delivery Me thod Nasal Cannula Nasal Cannula Oxygen Flow Rate 1 1 06/16/24 14:57 06/16/24 15:00 06/16/24 16:00 Temperature 97.8 F 97.8 F Pulse Rate 101 H 102 H Pulse Rate [Pulse Oximeter] Respiratory Rate 18 18 18 Blood Pressure 117/74 117/76 Blood Pressure [Ri ght Arm] Pulse Oximetry 96 96 96 Oxygen Delivery Me thod Nasal Cannula Nasal Cannula Room Air Oxygen Flow Rate 1 1 06/16/24 17:00 06/16/24 20:28 06/16/24 22:25 Temperature 97.8 F 98.0 F 97.6 F Pulse Rate 100 Pulse Rate [Pulse Oximeter] 99 98 Respiratory Rate 18 18 16 Blood Pressure 113/84 Blood Pressure [Ri ght Arm] 135/81 118/79 Pulse Oximetry 96 94 94 Oxygen Delivery Me thod Room Air Room Air Room Air Oxygen Flow Rate 06/17/24 00:30 06/17/24 00:30 06/17/24 07:00 Temperature Pulse Rate Pulse Rate [Pulse Oximeter] 95 Respiratory Rate 16 18 16 Blood Pressure Blood Pressure [Ri ght Arm] 119/74 Pulse Oximetry 96 96 95 Oxygen Delivery Me thod Room Air Room Air Room Air Oxygen Flow Rate 06/17/24 08:00 06/17/24 11:47 Temperature 97.6 F 97.6 F Pulse Rate Pulse Rate [Pulse Oximeter] 89 85 Respiratory Rate 16 18 Blood Pressure Blood Pressure [Ri ght Arm] 106/71 111/70 Pulse Oximetry 95 96 Oxygen Delivery Me thod Room Air Room Air Oxygen Flow Rate Progress Note:A&P Assessment and plan (1) S/P right hemicolectomy: Status: Acute Plan 49-year-old female s/p laparoscopic right hemicolectomy POD 1. Patient is not passing gas. She is tolerating clears. We will wait for return of bowel function.
--- NOTE | 2024-06-17 15:22 | PC.NURSE ---
End of shift: Pt AxOx4, pleasant, and cooperative. Lap sites with an incision to the abdomen remain CDI, ice pack to the site has brought relief for the patient. Pt rates pain 2-5/10 during shift to the abdomen/incision site. Pot Press Operator utilized PRN and scheduled pain medication, ice, activity, and repositioning. Renteria discontinued, Pt is voiding in toilet. Pt has not passed gas. Pt tolerating clear liquid diet/fluids. Pt had broth and popsicle throughout the shift. Pt indep in room, walking hallways SBA. Pt walked 3 times today. Family at bedside, call light within reach.
[2024-06-17] MEDS: TRAZODONE HCL 50 MG TABLET PO (22:19)
[2024-06-18] VITALS (9 sets, daily range): BP systolic 109–132; BP diastolic 69–79; PULSE 88–94; RESP 16–18; TEMP 36.7–37.5; O2SAT 96–97
[2024-06-18] MEDS: ACETAMINOPHEN 325 MG TABLET 650 MG PO ×4 (01:26→20:19)
[2024-06-18] MEDS: OXYCODONE 5 MG TABLET 10 MG PO ×3 (04:40→22:04)
--- NOTE | 2024-06-18 06:37 | PC.NURSE ---
Shift note ([id number]): Patient pleasant, alert and oriented. Ambulates independently in room. PRN Oxycodone given for incisional pain rated 7/10. Dressings C,D&I. Refused 0200 BS check and requested restful night vitals so she could sleep.
[2024-06-18] MEDS: LEVOTHYROXINE 88 MCG TABLET PO (06:48)
[2024-06-18 07:14] LABS: Hematocrit 25.7 % (33.0-51.0); Hemoglobin* 8.9 gm/dL (12.0-16.0); Mean Corpuscular HGB Conc 35 gm/dL (32-36); Mean Corpuscular Hemoglobin 32 pg (26-34); Mean Corpuscular Volume 92 fL (80-100); Platelet Count* 185 K/uL (140-440); Red Blood Count 2.81 m/uL (4.00-5.20)
[2024-06-18 07:23] LABS: Chloride* 99 mmol/L (96-114); Sodium* 135 mmol/L (135-149)
[2024-06-18 07:24] LABS: Potassium* 3.7 mmol/L (3.6-5.1)
[2024-06-18 07:26] LABS: Creatinine* 0.5 mg/dL (0.5-1.5); Est. Creatinine Clearance* 135.79; Estimated Glomerular Filt Rate 114 ml/min; Slide Review Reflex No
[2024-06-18 07:27] LABS: Anion Gap 9 mEq/L (7-15); Blood Urea Nitrogen* 7 mg/dL (7-30); Calcium* 8.8 mg/dL (8.4-10.6); Carbon Dioxide* 27 mmol/L (20-32); Glucose* 161 mg/dL (60-115)
[2024-06-18] MEDS: LIDOCAINE 5% PATCH 1 PATCH TRANSDERMA (08:33)
[2024-06-18] MEDS: carvediloL 6.25 MG TABLET 12.5 MG PO ×2 (09:17→20:18)
--- NOTE | 2024-06-18 13:58 | P.IMPN_ITS ---
Progress Note: A&P Assessment and plan (1) S/P right hemicolectomy: Problem details: Adrian 06/16/24 Laparoscopic; for cecal tubulovillous adenoma Hospital medicine team is happy to follow this patient through to discharge. Status: Acute (2) Tubulovillous adenoma: Problem details: -on initial colonoscopy the biopsy showed to be a tubulovillous adenoma. Negative for high-grade dysplasia. Pathology from today is still pending. Status: Acute (3) Type 2 diabetes mellitus: Problem details: - HgbA1C 5.3% on 04/02/24 - sips and chips until bowel function returns. - q6H accuchecks and ISS. - We discussed glipizide, her home medication, and patient agrees that she will not be eating as she used to do before early after her operation so plan is to hold it until she meets her PCP or goes back to her normal diet. Status: Chronic (4) Diabetic neuropathy: Problem details: -continue gabapentin, patient would like this to be p.r.n. since she will be on opioids Status: Chronic (5) Iron deficiency anemia: Problem details: -hemoglobin on 05/25 was 11.1, MCV was normal. -adding iron levels for morning labs Status: Acute (6) HTN (hypertension): Problem details: -postop blood pressure 136/83. Cautiously will continue the carvedilol and lisinopril -holding lisinopril if borderline low blood pressures are present, hold parameters in order Status: Acute (7) Fatty liver: Problem details: 07/07/23: seen on RUQ US. Follow-up MRA abdomen showed mild fatty change, liver normal in size and shape. March of 2024, liver was unremarkable on CT scan. Status: Acute (8) Hypothyroidism: Problem details: - 04/02/24 TSH 1.79 - Continue synthroid Status: Chronic (9) Attention deficit disorder: Problem details: Patient is okay to be on Adderall holiday while inpatient Status: Chronic (10) Insomnia: Problem details: - prn melatonin, p.r.n. trazodone Status: Acute Plan We discussed glipizide, her home medication, and patient agrees that she will not be eating as she used to do before early after her operation so plan is to hold it until she meets her PCP or goes back to her normal diet. Time Spent With Patient Total time spent: Today I spent 50 minutes seeing the patient, reviewing Expanse and EPIC notes/diagnostics, discussing the care plan with our care time that includes social work, PT/OT, pharmacy, RT, penitentiary and documenting my impressions and plan in the medical record. Subjective Date Seen: 06/18/24 Interval history: Patient was seen at bedside today. Patient states that she is feeling okay today. She still did not pass gas . We discussed glipizide, her home medication, and patient agrees that she will not be eating as she used to do before early after her operation so plan is to hold it until she meets her PCP or goes back to her normal diet. Exam Narrative: Exam Narrative: GENERAL: Comfortable, no acute distress. HEAD AND NECK: Atraumatic, normocephalic CARDIOVASCULAR: RRR. Normal S1, S2. No murmurs. RESPIRATORY: Clear to auscultation B/L. Good air entry B/L. No wheezes or rhonchi. GASTROINTESTINAL: Not distended, Dressing, clean NEUROLOGY: Alert, awake, oriented. Normal speech. PSYCH: Normal mood, normal affect. Const: Vital Signs, click to edit/add: Vital Signs - 24 hr 06/17/24 15:00 06/17/24 15:00 06/17/24 16:00 Temperature 98.6 F Pulse Rate [Pulse Oximeter] 91 91 Respiratory Rate 18 18 18 Blood Pressure [Ri ght Arm] 117/70 Pulse Oximetry 96 96 Oxygen Delivery Me thod Room Air Room Air 06/17/24 20:00 06/17/24 23:00 06/18/24 00:00 Temperature 98.6 F 99.5 F Pulse Rate [Pulse Oximeter] 93 90 Respiratory Rate 18 18 Blood Pressure [Ri ght Arm] 117/71 115/69 Pulse Oximetry 96 96 96 Oxygen Delivery Me thod Room Air Room Air Room Air 06/18/24 07:00 06/18/24 07:46 06/18/24 08:35 Temperature 98.2 F Pulse Rate [Pulse Oximeter] 88 Respiratory Rate 16 16 Blood Pressure [Ri ght Arm] 121/75 110/74 Pulse Oximetry 96 96 Oxygen Delivery Me thod Room Air Room Air 06/18/24 11:06 Temperature 98.2 F Pulse Rate [Pulse Oximeter] 90 Respiratory Rate 18 Blood Pressure [Ri ght Arm] 109/78 Pulse Oximetry 97 Oxygen Delivery Me thod Room Air Labs Labs: Laboratory Results - last 24 hr 06/18/24 06:44 WBC 6.40 RBC 2.81 L Hgb 8.9 L Hct 25.7 L MCV 92 MCH 32 MCHC 35 Plt Count 185 Sodium 135 Potassium 3.7 Chloride 99 Carbon Dioxide 27 Anion Gap 9 BUN 7 Creatinine 0.5 Estimated Creat Clear 135.79 Estimated GFR 114 Glucose 161 H Calcium 8.8
--- NOTE | 2024-06-18 18:13 | PC.NURSE ---
End of shift: Pt AxOx4, pleasant, and cooperative. Lap sites with an incision to the abdomen remain CDI, ice pack to the site has brought relief for the patient. Pt rates pain 2-4/10 during shift to the abdomen/incision site. Qa Internship utilized PRN and scheduled pain medication, ice, activity, and repositioning. Pt tolerating full diet/fluids. Pt ordered first regular diet for dinner, no nausea present. Continuing to advance as Pt tolerates. Pt indep in room and walking hallways frequently. Pt is playing on ipad, call light within reach. Continent of bladder.
[2024-06-18] MEDS: TRAZODONE HCL 50 MG TABLET PO (22:05)
--- NOTE | 2024-06-19 06:51 | PC.NURSE ---
Pt alert, oriented and vitally stable. Pt pain rated 7/10, prn oxy and trazadone given, pt stated improvement. Pt lap and incision sites C/D/I. Pt independent, tolerates well. Pt states they still haven't passed flatus. Denies N/V/D. Pt refused 3 am vitals. Pt alert, oriented and vitally stable.
[2024-06-19] MEDS: LEVOTHYROXINE 88 MCG TABLET PO (06:58)
[2024-06-19 07:06] LABS: Hematocrit 26.1 % (33.0-51.0); Hemoglobin* 8.9 gm/dL (12.0-16.0); Mean Corpuscular HGB Conc 34 gm/dL (32-36); Mean Corpuscular Hemoglobin 31 pg (26-34); Mean Corpuscular Volume 92 fL (80-100); Platelet Count* 190 K/uL (140-440); Red Blood Count 2.85 m/uL (4.00-5.20); White Blood Count* 5.26 K/uL (4.50-11.00)
[2024-06-19 07:15] LABS: Slide Review Reflex No
[2024-06-19 07:21] LABS: Chloride* 101 mmol/L (96-114); Potassium* 4.2 mmol/L (3.6-5.1); Sodium* 136 mmol/L (135-149)
[2024-06-19 07:24] LABS: Anion Gap 6 mEq/L (7-15); Blood Urea Nitrogen* 10 mg/dL (7-30); Carbon Dioxide* 29 mmol/L (20-32); Creatinine* 0.6 mg/dL (0.5-1.5); Est. Creatinine Clearance* 113.16; Estimated Glomerular Filt Rate 109 ml/min; Glucose* 147 mg/dL (60-115)
[2024-06-19 07:25] LABS: Calcium* 8.9 mg/dL (8.4-10.6)
[2024-06-19 07:45] VITALS: BP 125/75; PULSE 86; RESP 16; TEMP 36.6; O2SAT 97
[2024-06-19] MEDS: ACETAMINOPHEN 325 MG TABLET 650 MG PO (08:25)
[2024-06-19] MEDS: lisinopriL 10 MG TABLET PO (08:25)
[2024-06-19] MEDS: OXYCODONE 5 MG TABLET 10 MG PO (08:26)
[2024-06-19] MEDS: LIDOCAINE 5% PATCH 1 PATCH TRANSDERMA (08:26)
[2024-06-19] MEDS: carvediloL 6.25 MG TABLET 12.5 MG PO (08:27)
--- NOTE | 2024-06-19 08:58 | P.DS_ITS ---
DS: Providers Provider Date Seen: 06/19/24 Date of admission: 06/16/24 06:13 Primary care physician: Ramesh Castillo PA-C Admitting Clinician: Cortez Campbell MD Attending Physician on discharge: Cortez Campbell MD DS: Diagnosis Discharge Diagnosis (1) S/P right hemicolectomy: Status: Acute DS: Summary Hospital Course Hospital Course: 49-year-old female was admitted to the hospital after laparoscopic right hemicolectomy for endoscopically unresectable tubulovillous adenoma. Patient did well postoperatively. On the day of discharge she was tolerating regular diet and passing gas and having liquid stools. Her pain was controlled with oxycodone. Time Spent with Patient Time attestation: Total time spent providing and/or coordinating discharge services: Exam Narrative: Exam Narrative: Abdomen: Not distended, not tender to palpation, laparoscopic incisions and midline incision are covered with clean steri strips with no surrounding erythema. Const: Vital Signs, click to edit/add: Vital Signs - 24 hr 06/18/24 11:06 06/18/24 14:44 06/18/24 14:46 Temperature 98.2 F 98.5 F Pulse Rate [Pulse Oximeter] 90 91 Respiratory Rate 18 16 Blood Pressure [Ri ght Arm] 109/78 112/78 Pulse Oximetry 97 96 96 Oxygen Delivery Me thod Room Air Room Air Room Air 06/18/24 20:00 06/18/24 23:00 06/18/24 23:00 Temperature 98.1 F Pulse Rate [Pulse Oximeter] 94 94 Respiratory Rate 18 18 Blood Pressure [Ri ght Arm] 128/75 Pulse Oximetry 96 97 Oxygen Delivery Me thod Room Air Room Air 06/18/24 23:00 Temperature 98.4 F Pulse Rate [Pulse Oximeter] 89 Respiratory Rate 16 Blood Pressure [Ri ght Arm] 132/79 Pulse Oximetry 97 Oxygen Delivery Me thod Room Air DS: Data Data Completed and Pending Completed studies during hospitalization: Procedures Resection of Gallbladder, Percutaneous Endoscopic Approach (07/23/23) Labs on day of discharge: Labs from last 24 hours 06/19/24 06:02 WBC 5.26 RBC 2.85 L Hgb 8.9 L Hct 26.1 L MCV 92 MCH 31 MCHC 34 Plt Count 190 Sodium 136 Potassium 4.2 Chloride 101 Carbon Dioxide 29 Anion Gap 6 L BUN 10 Creatinine 0.6 Estimated Creat Clear 113.16 Estimated GFR 109 Glucose 147 H Calcium 8.9 Discharge Plan Discharge Disposition: Home, Self-Care Date of Admission: 06/16/24 06:13 Attending Provider on Discharge: Cortez Campbell Primary Care Provider: Ramesh Castillo Condition: Stable Anticipated Discharge Date/Time: 06/19/24 08:55 Discharge Medications: New oxycodone 5 mg capsule 5 mg PO TID PRN (Reason: pain) Qty: 20 0RF Continued cholecalciferol (vitamin D3) 25 mcg (1,000 unit) tablet 25 mcg PO DAILY levothyroxine [Synthroid] 88 mcg tablet 88 mcg PO DAILY Qty: 90 1RF gabapentin 600 mg tablet 600 mg PO HS Qty: 90 0RF carvedilol 12.5 mg tablet 12.5 mg PO BID lisinopril 10 mg tablet 10 mg PO DAILY dextroamphetamine-amphetamine 10 mg tablet 15 mg PO DAILY 90 Days Qty: 135 0RF aspirin 81 mg tablet,delayed release (DR/EC) 81 mg PO DAILY glipizide 5 mg tablet extended release 24hr 5 mg PO DAILY metformin 500 mg tablet extended release 24 hr 2,000 mg PO DAILY Trulicity 3 mg/0.5 mL pen injector 3 mg subcut QWEEK Qty: 2 0RF Discontinued peg 3350-electrolytes [Golytely] 236-22.74-6.74 -5.86 gram recon soln 240 ml PO Q10M Qty: 4000 0RF Rx Instructions: Follow colonoscopy prep instructions given in clinic. Discharge Orders: Discharge Order (Routine); Ordered 06/19/24 Ordered By: Cortez Campbell Activity Level: No strenuous activity Activity Detail: No strenuous activity or lifting more than 15-20 lbs for 4-6 weeks. Okay to shower any time. Avoid swimming for 2 weeks postop. Discharge Diet: Regular Follow Up Appointments: Cortez Campbell MD [Staff Physician] - (Two weeks [facility] clinic) Forms: MyHealth Info Instructions
--- NOTE | 2024-06-19 10:06 | P.DS_ITS ---
DS: Providers Provider Date Seen: 06/19/24 Date of admission: 06/16/24 06:13 Primary care physician: Ramesh Castillo PA-C Admitting Clinician: Cortez Campbell MD Attending Physician on discharge: Cortez Campbell MD DS: Diagnosis Discharge Diagnosis (1) S/P right hemicolectomy: Status: Acute DS: Summary Hospital Course Hospital Course: 49-year-old female was admitted to the hospital after laparoscopic right hemicolectomy for endoscopically unresectable tubulovillous adenoma. Patient did well postoperatively. On the day of discharge she was tolerating regular diet and passing gas and having liquid stools. Her pain was controlled with oxycodone. Time Spent with Patient Time attestation: Total time spent providing and/or coordinating discharge services: Exam Const: Vital Signs, click to edit/add: Vital Signs - 24 hr 06/18/24 11:06 06/18/24 14:44 06/18/24 14:46 Temperature 98.2 F 98.5 F Pulse Rate [Pulse Oximeter] 90 91 Respiratory Rate 18 16 Blood Pressure [Ri ght Arm] 109/78 112/78 Pulse Oximetry 97 96 96 Oxygen Delivery Me thod Room Air Room Air Room Air 06/18/24 20:00 06/18/24 23:00 06/18/24 23:00 Temperature 98.1 F Pulse Rate [Pulse Oximeter] 94 94 Respiratory Rate 18 18 Blood Pressure [Ri ght Arm] 128/75 Pulse Oximetry 96 97 Oxygen Delivery Me thod Room Air Room Air 06/18/24 23:00 Temperature 98.4 F Pulse Rate [Pulse Oximeter] 89 Respiratory Rate 16 Blood Pressure [Ri ght Arm] 132/79 Pulse Oximetry 97 Oxygen Delivery Me thod Room Air DS: Data Data Completed and Pending Completed studies during hospitalization: Procedures Resection of Gallbladder, Percutaneous Endoscopic Approach (07/23/23) Labs on day of discharge: Labs from last 24 hours 06/19/24 06:02 WBC 5.26 RBC 2.85 L Hgb 8.9 L Hct 26.1 L MCV 92 MCH 31 MCHC 34 Plt Count 190 Sodium 136 Potassium 4.2 Chloride 101 Carbon Dioxide 29 Anion Gap 6 L BUN 10 Creatinine 0.6 Estimated Creat Clear 113.16 Estimated GFR 109 Glucose 147 H Calcium 8.9 Discharge Plan Discharge Disposition: Home, Self-Care Date of Admission: 06/16/24 06:13 Attending Provider on Discharge: Cortez Campbell Primary Care Provider: Ramesh Castillo Condition: Stable Anticipated Discharge Date/Time: 06/19/24 08:55 Discharge Medications: New oxycodone 5 mg capsule 5 mg PO TID PRN (Reason: pain) Qty: 20 0RF Continued cholecalciferol (vitamin D3) 25 mcg (1,000 unit) tablet 25 mcg PO DAILY levothyroxine [Synthroid] 88 mcg tablet 88 mcg PO DAILY Qty: 90 1RF gabapentin 600 mg tablet 600 mg PO HS Qty: 90 0RF carvedilol 12.5 mg tablet 12.5 mg PO BID lisinopril 10 mg tablet 10 mg PO DAILY dextroamphetamine-amphetamine 10 mg tablet 15 mg PO DAILY 90 Days Qty: 135 0RF aspirin 81 mg tablet,delayed release (DR/EC) 81 mg PO DAILY glipizide 5 mg tablet extended release 24hr 5 mg PO DAILY metformin 500 mg tablet extended release 24 hr 2,000 mg PO DAILY Trulicity 3 mg/0.5 mL pen injector 3 mg subcut QWEEK Qty: 2 0RF Discontinued peg 3350-electrolytes [Golytely] 236-22.74-6.74 -5.86 gram recon soln 240 ml PO Q10M Qty: 4000 0RF Rx Instructions: Follow colonoscopy prep instructions given in clinic. Discharge Orders: Discharge Order (Routine); Ordered 06/19/24 Ordered By: Cortez Campbell Activity Level: No strenuous activity Activity Detail: No strenuous activity or lifting more than 15-20 lbs for 4-6 weeks. Okay to shower any time. Avoid swimming for 2 weeks postop. Discharge Diet: Regular Follow Up Appointments: Cortez Campbell MD [Staff Physician] - (Two weeks [facility] clinic) Forms: [employer] Info Instructions
--- NOTE | 2024-06-19 10:42 | P.IMPN_ITS ---
Progress Note: A&P Assessment and plan (1) S/P right hemicolectomy: Problem details: S/P Sx on Jun 16. Status: Acute (2) Tubulovillous adenoma: Problem details: -on initial colonoscopy the biopsy showed to be a tubulovillous adenoma. Negative for high-grade dysplasia. Pathology from today is still pending. Status: Acute (3) Type 2 diabetes mellitus: Problem details: - HgbA1C 5.3% on 04/02/24 - sips and chips until bowel function returns. - q6H accuchecks and ISS. - We discussed glipizide, her home medication, and patient agrees that she will not be eating as she used to do before early after her operation so plan is to hold it until she meets her PCP or goes back to her normal diet. Status: Chronic (4) Diabetic neuropathy: Problem details: -continue gabapentin, patient would like this to be p.r.n. since she will be on opioids Status: Chronic (5) Iron deficiency anemia: Problem details: -hemoglobin on 05/25 was 11.1, MCV was normal. -adding iron levels for morning labs Status: Acute (6) HTN (hypertension): Problem details: -postop blood pressure 136/83. Cautiously will continue the carvedilol and lisinopril -holding lisinopril if borderline low blood pressures are present, hold parame ters in order Status: Acute (7) Fatty liver: Problem details: 07/07/23: seen on RUQ US. Follow-up MRA abdomen showed mild fatty change, liver normal in size and shape. March of 2024, liver was unremarkable on CT scan. Status: Acute (8) Hypothyroidism: Problem details: - 04/02/24 TSH 1.79 - Continue synthroid Status: Chronic (9) Attention deficit disorder: Problem details: Patient is okay to be on Adderall holiday while inpatient Status: Chronic (10) Insomnia: Problem details: - prn melatonin, p.r.n. trazodone Status: Acute Plan We discussed glipizide, her home medication, and patient agrees that she will not be eating as she used to do before early after her operation so plan is to hold it until she meets her PCP or goes back to her normal diet. Subjective Date Seen: 06/19/24 Interval history: Patient was doing well, passing gas and having BM. Tolerating diet. Exam Narrative: Exam Narrative: GENERAL: Comfortable, no acute distress. HEAD AND NECK: Atraumatic, normocephalic CARDIOVASCULAR: RRR. Normal S1, S2. No murmurs. RESPIRATORY: Clear to auscultation B/L. Good air entry B/L. No wheezes or rhonchi. GASTROINTESTINAL: Not distended, Dressing, clean NEUROLOGY: Alert, awake, oriented. Normal speech. PSYCH: Normal mood, normal affect. Const: Vital Signs, click to edit/add: Vital Signs - 24 hr 06/18/24 11:06 06/18/24 14:44 06/18/24 14:46 Temperature 98.2 F 98.5 F Pulse Rate [Pulse Oximeter] 90 91 Respiratory Rate 18 16 Blood Pressure [Ri ght Arm] 109/78 112/78 Pulse Oximetry 97 96 96 Oxygen Delivery Me thod Room Air Room Air Room Air 06/18/24 20:00 06/18/24 23:00 06/18/24 23:00 Temperature 98.1 F Pulse Rate [Pulse Oximeter] 94 94 Respiratory Rate 18 18 Blood Pressure [Ri ght Arm] 128/75 Pulse Oximetry 96 97 Oxygen Delivery Me thod Room Air Room Air 06/18/24 23:00 Temperature 98.4 F Pulse Rate [Pulse Oximeter] 89 Respiratory Rate 16 Blood Pressure [Ri ght Arm] 132/79 Pulse Oximetry 97 Oxygen Delivery Me thod Room Air Labs Labs: Laboratory Results - last 24 hr 06/19/24 06:02 WBC 5.26 RBC 2.85 L Hgb 8.9 L Hct 26.1 L MCV 92 MCH 31 MCHC 34 Plt Count 190 Sodium 136 Potassium 4.2 Chloride 101 Carbon Dioxide 29 Anion Gap 6 L BUN 10 Creatinine 0.6 Estimated Creat Clear 113.16 Estimated GFR 109 Glucose 147 H Calcium 8.9
--- NOTE | 2024-06-19 15:27 | PC.NURSE ---
BOWEL SOUNDS ACTIVE.PASSING GAS. TOLERATING REGULAR DIET WITH NO N/V. SALINE LOCK DC'D. REVIEWED DC INSTRUCTIONS WITH PATIENT AND PATIENT DC'D HOME.
== END 2024-06-19 11:46 | disposition home or self-care (01) | DRG 221 ==
PROVIDERS: Family Medicine; Student in an Organized Health Care Education/Training Program; Admitting Provider Surgery; PCP Physician Assistant Medical; Visit Provider Surgery
PROC: 0DTF4ZZ Resection of Right Large Intestine, Percutaneous Endoscopic Approach (ICD-10-PCS; principal; 2024-06-16 07:30)
DX: D12.0 Benign neoplasm of cecum (principal); E11.9 Type 2 diabetes mellitus without complications; Z79.85 Long-term (current) use of injectable non-insulin antidiabetic drugs; Z79.84 Long term (current) use of oral hypoglycemic drugs; I10 Essential (primary) hypertension; E03.9 Hypothyroidism, unspecified; F98.8 Other specified behavioral and emotional disorders with onset usually occurring in childhood and adolescence; F41.9 Anxiety disorder, unspecified; E11.40 Type 2 diabetes mellitus with diabetic neuropathy, unspecified; D50.9 Iron deficiency anemia, unspecified; K76.0 Fatty (change of) liver, not elsewhere classified; G47.00 Insomnia, unspecified; E11.621 Type 2 diabetes mellitus with foot ulcer; L97.511 Non-pressure chronic ulcer of other part of right foot limited to breakdown of skin; G89.18 Other acute postprocedural pain
CPT/HCPCS: 00790; 36415; 64488; 76942; 80048; 82330; 82962; 83036; 83540; 83550; 83735; 84443; 85025; 85027; 88309; A4314; A9270; C9290; J0330; J0665; J1100; J1171; J1335; J2250; J2405; J2704; J2710; J3010; J3475; J3490; J7030; J7120

== ENCOUNTER 2024-07-27 07:35 | Outpatient (CLI) | payer BC, SELFPAY | END 2024-07-27 07:36 | disposition home or self-care (01) | LOC: NFLDREF 08-03 00:57 | PROVIDERS: PCP Physician Assistant Medical; Referring Provider Physician Assistant Medical; Visit Provider Physician Assistant Medical | DX: E03.9 Hypothyroidism, unspecified (principal); E78.1 Pure hyperglyceridemia | CPT/HCPCS: 80061; 84443 ==

== ENCOUNTER 2024-09-15 01:57 | Emergency (ER) | payer BC, SELFPAY ==
[2024-09-15 01:57] VITALS: RESP 18; O2SAT 99
--- OUTSIDE RECORDS SUMMARY | 2024-09-15 01:59 | XMS_ITS | Clinical Summary ---
Author Organization [facility] Address [address] [place] [id number] Care Team Providers Care Automotive Salesperson Name Role Phone Ramesh Castillo PA-C Primary Care Provider [phone] Allergies Active Allergy Reactions Criticality Noted Date Comments Sulfa (Sulfonamide Antibiotics) Hives 10/30 Sulfamethoxazole-Trimethoprim Hives High 2012 Medications Synthroid 75 mcg tablet Take 1 Tablet by mouth once daily. 1 Active dextroamphetamine-a mphetamine (ADDERALL) 10 mg tablet Take 1 Tablet by mouth 2 times daily. 1 Active gabapentin (NEURONTIN) 600 mg tabletIndications:D iabetic polyneuropathy associated with type 2 diabetes mellitus (HC) Take 1 Tablet (600 mg) by mouth once daily. 90 Tablet 3 1 Active lisinopriL (PRINIVIL; ZESTRIL) 10 mg tabletIndications:M icroalbuminuria,Ess ential hypertension TAKE 1 TABLET BY MOUTH EVERY DAY 30 Tablet 2 Active atorvastatin (LIPITOR) 40 mg tabletIndications:M ixed dyslipidemia TAKE 1 TABLET BY MOUTH EVERYDAY AT BEDTIME. No further refills. 30 Tablet 2 Active aspirin (ECOTRIN) 81 mg enteric coated tabletIndications:T ype 2 diabetes mellitus with diabetic polyneuropathy, without long-term current use of insulin (HC) TAKE 1 TABLET (81 MG) BY MOUTH ONCE DAILY WITH A MEAL. 90 Tablet 3 2 Active glipiZIDE extended-release (GLUCOTROL XL) 5 mg Extended-Release tabletIndications:T ype 2 diabetes mellitus with diabetic polyneuropathy, without long-term current use of insulin (HC) TAKE 1 TABLET (5 MG) BY MOUTH ONCE DAILY BEFORE A MEAL. 30 Tablet 2 Active metFORMIN (GLUCOPHAGE XR) 500 mg Extended-Release tabletIndications:T ype 2 diabetes mellitus with diabetic polyneuropathy, without long-term current use of insulin (HC) TAKE 2 TABLETS BY MOUTH 2 TIMES DAILY 120 Tablet 2 Active Active Problems Problem Noted Date Diagnosed Date Essential hypertension 05/02/2021 Microalbuminuria 05/02/2021 Hypothyroidism (acquired) 05/02/2021 Type 2 diabetes mellitus wit h diabetic polyneuropathy, without long-term current use of insulin 05/02/2021 Diabetic polyneuropathy asso ciated with type 2 diabetes mellitus 05/02/2021 Mixed dyslipidemia 05/02/2021 Obesity (BMI 30-39.9) 05/02/2021 Type II diabetes mellitus wi th peripheral autonomic neuropathy 07/26/2019 Other specified hypothyroidism 07/26/2019 Immunizations Immunization Administration Dates Next Due COVID-19 vaccine ([employer] NTFablic 30mcg/0.3mL) PF, MDV 10/31/2020,10/10/2020 Influenza, IIV4 05/01/2021,04/23/2019,05/05/2018 Tdap 02/03/2020 Social History Tobacco Use Types Packs/Day Years Used Date Smoking Tobacco: Never Smokeless Tobacco: Never Alcohol Use Standard Drinks/Week Comments Yes 0 (1 standard drink = 0.6 oz pur e alcohol) PHQ-2 Answer Date Recorded PHQ-2 TOTAL SCORE 0 05/01/2021 Social Connections Answer Date Recorded Frequency of Communication with Friends and Fami ly Not on file 07/01/2021 Financial Resource Strain Answer Date R ecorded Difficulty of Paying Living Expenses Not on file 07/01/2021 Difficulty of Paying Living Expenses Not on file 07/01/2021 Comments No Sex and Gender Information Value Date Recorded Sex Assigned at Not on file Legal Sex Female 5:38 AM CERTIFICATION TECHNICIAN Gender Identity Not on file Sexual Orientation Not on file Obstetrics History Last Filed Vital Signs Vital Sign Reading Time Taken Comments Blood Pressure 159/77 09/23/2023 7:47 PM CDT Pulse 86 09/23/2023 7:47 PM CDT Temperature 36.9 C (98.5 F) 09/23/2023 7:47 PM CDT Respiratory Rate 20 09/23/2023 7:47 PM CDT Oxygen Saturation 99% 09/23/2023 7:47 PM CDT Inhaled Oxygen Concentration - - Weight 83.5 kg (184 lb) 07/23/2023 1:12 PM CERTIFICATION TECHNICIAN Height 172.7 cm (5' 8) 07/23/2023 1:12 PM CERTIFICATION TECHNICIAN Body Mass Index 27.98 07/23/2023 1:12 PM CERTIFICATION TECHNICIAN Plan of Treatment Health Maintenance Due Date Last Done Comments HIV for age 15-65 1989 Hepatitis C screening for age 18-79 1992 Pneumococcal series for age 50+ (1 of 2 - PCV) 1993 Pap test for age 21-65 1995 Colonoscopy through age 75 2019 Mammogram for age 45-75 2019 Depression screening for age 12+ 05/01/2022 05/01/20 21 BMI (ht and wt on same day) for age 18+ 11/11/2022 11/11/2021, 01/02/2021 COVID-19 vaccine series ( season) 2024 10/31/2020, 10/10/2020 Influenza Vaccine (#1) 2024 , 04/23/2019, 05/05/2018 Zoster (shingles) series for age 50+ (1 of 2) 2024 Lipids for age 45-75 05/01/2026 05/01/2021 Tetanus booster 02/02/2030 02/03/2020 Tdap Completed 02/03/2020 Medical Devices Implanted Type Area Truck Loader Device Identifier Shelf Expiration Date Model / Serial / Lot Stent Pancreatic [id number] Geenen Sof-Flex No Flap - [id number] Implanted:Qty: 1 on 07/23/2023 by Nick Elizabeth MD at [facility] N/A: Pancreas [facility] 12/26/2025 [id number] / / [id number] Description:Pancreatic duct Procedures Procedure Name Priority Date/Time Associated Diagnosis Comments LIPID PANEL W REFLEX MEASURED LDL Routine 05/01/2021 3:18 PM CDT Screening cholesterol level from Last 3 Months or Most Recently Relevant to Health Maintenance Results * (ABNORMAL) LIPID PANEL W REFLEX MEASURED LDL (05/01/2021 3:18 PM CDT) CHOLESTEROL,TOTAL 141 100 - 199 mg/dL 05/02/2021 5:17 PM CDT [facility] TRIGLYCERIDES 156(H) <150 mg/dL 05/02/2021 5:17 PM CDT [facility] HDL CHOLESTEROL 39(L) >40 mg/dL 5:17 PM CDT [facility] NON-HDL CHOLESTEROL 102 <145 mg/dl 05/02/2021 5:17 PM CDT [facility] CHOL/HDL RATIO 3.62 <4.50 05/02/2021 5:17 PM CDT [facility] LDL CHOLESTEROL 71 <=130 mg/dL 05/02/2021 5:17 PM CDT [facility] VLDL CHOLESTEROL 31(H) <=30 mg/dL 05/02/2021 5:17 PM CDT [facility] PROVIDER ORDERED STATUS RANDOM 05/02/2021 5:17 PM CDT [facility] Blood BLOOD SPECIMEN / Unknown Venipuncture / Unknown 05/01/2021 3:18 PM CDT 05/01/2021 3:18 PM CDT us Marlene Calderón DO CHEMISTRY Final Resul t [facility] [address] [place] [address], [facility] [place] [address] [place] [address], from Last 3 Months or Most Recently Relevant to Health Maintenance Insurance [employer] [place] [employer] EMP Advance Directives * Full Code (Latest Code Status on File) Date Activated Date Inactivated Comments 07/23/2023 12:23 PM 07/23/2023 6:27 PM Question Answer Comments Code Status Discussion: Unable to Assess Preferences, Provider to review later * Full Code Date Activated Date Inactivated Comments 07/23/2023 12:23 PM 07/23/2023 12:23 PM Question Answer Comments Code Status Discussion: Unable to Assess Preferences, Provider to review later Care Teams Automotive Salesperson Relationship Specialty Start Date End Date Ramesh Castillo PA-C [address] [place] [id number] PCP - General Physician Consumer Studies Professor 07/26/19
--- OUTSIDE RECORDS SUMMARY | 2024-09-15 01:59 | XMS_ITS | Encounter Summary ---
Author Organization [place] Address [facility] [place] [address] Care Team Providers Care Lining Sewer Name Role Phone Mikhail Prieto MD Unavailable [phone] No Ref-Primary, Physician Primary Care Provider Mikhail Prieto MD Unavailable [phone] Reason for Visit * Reason Onset Date Comments Call to schedule test 08/28/2023 Re-schedul e echo stress today Encounter Details Date Type Department Care Team (Late st Contact Info) Description 08/28/2023 [facility] [address] [place] [address] Mikhail Prieto MD [address] [facility] [address] [place], [place] [id number] Call to schedule test (Re-schedule echo stress today) Social History Tobacco Use Types Packs/Day Years Used Date Smoking Tobacco: Never Smokeless Tobacco: Never Alcohol Use Standard Drinks/Week Comments Yes 0 (1 standard drink = 0.6 oz pur e alcohol) very rarely PHQ-2 Answer Date Recorded PHQ-2 Score 0 08/13/2023 Adolescent Education Answer Date Record ed Getting School Help Needed Not on file 03/22 Comments Unknown Sex and Gender Information Value Date Recorded Sex Assigned at Not on file Legal Sex Female 10:00 AM INSURANCE COORDINATOR Gender Identity Not on file Sexual Orientation Not on file documented as of this encounter Miscellaneous Notes * Telephone Encounter - Jennifer Hill - 08/28/2023 11:31 AM CST [facility] Phone Message May a detailed message be left on voicemail: yes Reason for Call: Other: Patient needs to re-schedule her echo stress for today, please call her back YOLY Action Taken: Other: cardiology Travel Screening: Not Applicable Thank you! [facility] RANCE COORDINATOR documented in this encounter Plan of Treatment Not on file documented as of this encounter Visit Diagnoses Not on filedocumented in this encounter Care Teams Lining Sewer Relationship Specialty Start Date End Date No Ref-Primary, Physician PCP - General 08/08/23 [place] [id number] [facility] [address] [place], [place] [address] Cardiovascular Disease 08/08/23 Mikhail Prieto MD [address] [facility] [address] [place], [place] [address] Assigned Heart and Vascular Provider 08/23/23 documented as of this encounter
--- OUTSIDE RECORDS SUMMARY | 2024-09-15 01:59 | XMS_ITS | Clinical Summary ---
Author Organization [place] Address [address] [place] [address]. [place] [address] Care Team Providers Care Field Operations Manager Name Role Phone Mikhail Prieto MD Unavailable No Ref-Primary, Physician Primary Care Provider Mikhail Prieto MD Unavailable [phone] Allergies Active Allergy Reactions Criticality Noted Date Comments Sulfa Antibiotics 08/13/2023 Medications levothyroxine (SYNTHROID/LEVO THROID) 88 MCG tablet Take 88 mcg by mouth daily Active ASPIRIN 81 PO Take by mouth daily Active cholecalciferol (VITAMIN D3) 125 mcg (5000 units) capsule Take 125 mcg by mouth daily Active metFORMIN (GLUCOPHAGE XR) 500 MG 24 hr tablet Take 2,000 mg by mouth daily (with dinner) Active glipiZIDE (GLUCOTROL) 5 MG tablet Take 5 mg by mouth daily Active Dulaglutide (TRULICITY) 3 MG/0.5ML SOPN Inject Subcutaneous once a week Active gabapentin (NEURONTIN) 600 MG tablet Take 600 mg by mouth daily Active lisinopril (ZESTRIL) 10 MG tabletIndicatio ns:Tachycardia, Essential hypertension, benign Take 1 tablet (10 mg) by mouth daily 90 tablet 3 4 Active carvedilol (COREG) 12.5 MG tabletIndicatio ns:Tachycardia, Essential hypertension, benign Take 1 tablet (12.5 mg) by mouth 2 times daily (with meals) 180 tablet 3 4 Active Social History Tobacco Use Types Packs/Day Years Used Date Smoking Tobacco: Never Smokeless Tobacco: Never Tobacco Cessation:Counseling Given: Not Answered Alcohol Use Standard Drinks/Week Comments Yes 0 (1 standard drink = 0.6 oz pur e alcohol) very rarely PHQ-2 Answer Date Recorded PHQ-2 Score 0 08/13/2023 Adolescent Education Answer Date Record ed Getting School Help Needed Not on file 03/22 Comments Unknown Sex and Gender Information Value Date Recorded Sex Assigned at Not on file Legal Sex Female 10:00 AM TICKET TAKER Gender Identity Not on file Sexual Orientation Not on file Last Filed Vital Signs Vital Sign Reading Time Taken Comments Blood Pressure 134/74 08/13/2023 1:56 PM TICKET TAKER Pulse 104 08/13/2023 1:56 PM TICKET TAKER Temperature - - Respiratory Rate - - Oxygen Saturation - - Inhaled Oxygen Concentration - - Weight - - Height 172.7 cm (5' 8) 08/13/2023 1:56 PM TICKET TAKER Body Mass Index - - Plan of Treatment Health Maintenance Due Date Last Done Comments ADVANCE CARE PLANNING 1974 ANNUAL REVIEW OF HM ORDERS 1974 CT COLONOGRAPHY 1974 FIT 1974 FLEX SIG 1974 GLUCOSE 1974 MAMMO SCREENING 1974 TSH W/FREE T4 REFLEX 1974 sDNA (Cologuard) 1974 YEARLY PREVENTIVE VISIT 1977 COLONOSCOPY 1984 COLORECTAL CANCER SCREENING 1984 HIV SCREENING 1989 HEPATITIS C SCREENING 1992 HEPATITIS B IMMUNIZATION (1 of 3 - 19+ 3-dose series) 1993 PAP 1995 LIPID 2014 COVID-19 Vaccine ( season) 2024 10/31/2020, 10/10/2020 INFLUENZA VACCINE (#1) 2024 2, 05/01/2021, 04/23/2019, Additional history exists Pneumococcal Vaccine: 50+ Years (1 of 1 - PCV) 2024 ZOSTER IMMUNIZATION (1 of 2) 2024 PHQ-2 (once per calendar year) 2024 08/13/2023 BMP 07/24/2024 07/24/2023 DTAP/TDAP/TD IMMUNIZATION (3 - Td or Tdap) 02/02/2030 02/03/2020, 01/30/2008 HPV IMMUNIZATION Aged Out No longer e ligible based on patient's age to complete this topic MENINGITIS IMMUNIZATION Aged Out No l onger eligible based on patient's age to complete this topic Procedures Procedure Name Priority Date/Time Associated Diagnosis Comments COMPREHENSIVE METABOLIC PANEL Routine 07/24/2023 5:53 AM TICKET TAKER from Last 3 Months or Most Recently Relevant to Health Maintenance Results * (ABNORMAL) Comprehensive metabolic panel (07/24/2023 5:53 AM TICKET TAKER) Sodium (External) 137 135 - 149 mmol/L NON-INTERFACE D (ONBASE SCANS) Potassium (External) 3.8 3.6 - 5.1 nmol/L NON-INTERFACE D (ONBASE SCANS) Anion Gap (External) 12 7 - 15 mEq/L NON-INTERFACE D (ONBASE SCANS) Urea Nitrogen (External) 10 5 - 24 mg/dL NON-INTERFACE D (ONBASE SCANS) Creatinine (External) 0.6 0.5 - 1.5 mg/dL NON-INTERFACE D (ONBASE SCANS) Calcium (External) 9.2 8.4 - 10.6 mg/dL NON-INTERFACE D (ONBASE SCANS) Glucose (External) 141(H) 60 - 115 mg/dL NON-INTERFACE D (ONBASE SCANS) Protein Total (External) 6.8 6.0 - 8.3 g/dL NON-INTERFACE D (ONBASE SCANS) Albumin (External) 4.1 3.3 - 5.0 g/dL NON-INTERFACE D (ONBASE SCANS) Bilirubin Total (External) 1.8(H) 0.1 - 1.5 mg/dL NON-INTERFACE D (ONBASE SCANS) Bilirubin Direct (External) 0.4 0.0 - 0.5 mg/dL NON-INTERFACE D (ONBASE SCANS) AST (External) 101(H) 12 - 35 U/L NON-INTERFACE D (ONBASE SCANS) ALT (External) 490(H) 4 - 35 U/L NON- INTERFACE D (ONBASE SCANS) Alk Phosphatase (External) 113 43 - 150 U/L NON-INTERFACE D (ONBASE SCANS) Blood BLOOD SPECIMEN / Unknown 07/24/2023 5:53 AM TICKET TAKER Narrative STANLEYE PFT - 08/12/2023 4:55 AM TICKET TAKER Verified by Javier Bazzi on 08/12/2023. us Ginny Wells MD LAB - BLOOD ORDERABLES Edited Re teja - Final CEMEZE PFT NON-INTERFACED (ONBASE SCANS) from Last 3 Months or Most Recently Relevant to Health Maintenance Insurance [facility] [employer] [facility] [employer] Care Teams Field Operations Manager Relationship Specialty Start Date End Date No Ref-Primary, Physician PCP - General 08/08/23 [place] [id number] [facility] [address] [place], [place] [address] Cardiovascular Disease 08/08/23 Mikhail Prieto MD [address] [facility] [address] [place], [place] [id number] Assigned Heart and Vascular Provider 08/23/23
--- OUTSIDE RECORDS SUMMARY | 2024-09-15 01:59 | XMS_ITS | Encounter Summary ---
Author Organization [place] Address [facility] [place] [address] Care Team Providers Care Meat Hanger Name Role Phone Mikhail Prieto MD Unavailable [phone] No Ref-Primary, Physician Primary Care Provider Mikhail Prieto MD Unavailable [phone] Encounter Details Date Type Department Care Team (Late st Contact Info) Description 07/24/2023 External Order Results [facility] [address] [place] [address] Outside, Provider Social History Tobacco Use Types Packs/Day Years Used Date Smoking Tobacco: Never Assessed Adolescent Education Answer Date Record ed Getting School Help Needed Not on file 03/22 Comments Unknown Sex and Gender Information Value Date Recorded Sex Assigned at Not on file Legal Sex Female 10:00 AM STATIONARY ENGINEER Gender Identity Not on file Sexual Orientation Not on file documented as of this encounter Plan of Treatment Not on file documented as of this encounter Procedures Procedure Name Priority Date/Time Associated Diagnosis Comments LIPASE Routine 07/24/2023 5:53 AM STATIONARY ENGINEER CRP INFLAMMATION Routine 07/24/2023 5:53 AM STATIONARY ENGINEER COMPREHENSIVE METABOLIC PANEL Routine 07/24/2023 5:53 AM STATIONARY ENGINEER CBC WITH PLATELETS Routine 07/24/2023 5: 53 AM STATIONARY ENGINEER documented in this encounter Results * (ABNORMAL) Comprehensive metabolic panel (07/24/2023 5:53 AM STATIONARY ENGINEER) [facility] Sodium (External) 137 135 - 149 mmol/L [...] BLOOD SPECIMEN / Unknown 07/24/2023 5:53 AM STATIONARY ENGINEER Narrative ALE PFT - 08/12/2023 4:55 AM STATIONARY ENGINEER Verified by Javier Bazzi on 08/12/2023. us Ginny Wells MD LAB - BLOOD ORDERABLES Edited Re teja - Final ALE BULL NON-INTERFACED (ONBASE SCANS) * CRP inflammation (07/24/2023 5:53 AM STATIONARY ENGINEER) CRP Inflammation (External) 1.1 0.5 - 5.0 mg/dL NON-INTERFACE D (ONBASE SCANS) Blood BLOOD SPECIMEN / Unknown 07/24/2023 5:53 AM STATIONARY ENGINEER Narrative BREEZE PFT - 08/12/2023 4:55 AM STATIONARY ENGINEER Verified by Javier Bazzi on 08/12/2023. us Ginny Wells MD LAB - BLOOD ORDERABLES Edited [facility] Performing Organization Address City/[facility]/ZIP Co de Phone Number ALE PFT NON-INTERFACED (ONBASE SCANS) * Lipase (07/24/2023 5:53 AM STATIONARY ENGINEER) Lipase Level (External) 153 23 - 300 U/L NON-INTERFACED (ONBASE SCANS) Blood BLOOD SPECIMEN / Unknown 07/24/2023 5:53 AM STATIONARY ENGINEER Narrative BREEZE PFT - 08/12/2023 4:55 AM STATIONARY ENGINEER Verified by Javier Bazzi on 08/12/2023. us Ginny Wells MD LAB - BLOOD ORDERABLES Edited Re teja [facility] ALE PFT NON-INTERFACED (ONBASE SCANS) * (ABNORMAL) CBC with platelets (07/24/2023 5:53 AM STATIONARY ENGINEER) WBC Count (External) 7.24 4.50 - 11.00 K/uL NON-INTERFACE D (ONBASE SCANS) RBC Count (External) 3.38(L) 4.00 - 5.20 m/uL NON-INTERFACE D (ONBASE SCANS) Hemoglobin (External) 9.7(L) 12.0 - 16.0 gm/dL NON-INTERFACE D (ONBASE SCANS) Hematocrit (External) 29.8(L) 33.0 - 51.0 % NON-INTERFACE D (ONBASE SCANS) MCV (External) 88 83 - 100 fL NON-INTERFACE D (ONBASE SCANS) MCH (External) 29 26 - 34 pg NON- INTERFACE D (ONBASE SCANS) MCHC (External) 33 32 - 36 g/dL NON-INTERFACE D (ONBASE SCANS) Platelet Count (External) 304 140 - 440 K/uL NON-INTERFACE D (ONBASE SCANS) Blood BLOOD SPECIMEN / Unknown 07/24/2023 5:53 AM STATIONARY ENGINEER Narrative ALE PFT - 08/12/2023 4:55 AM STATIONARY ENGINEER Verified by Javier Bazzi on 08/12/2023. us Ginny Wells MD LAB - BLOOD ORDERABLES Edited Re sult - Final ALE PFT NON-INTERFACED (ONBASE SCANS) documented in this encounter Visit Diagnoses Not on filedocumented in this encounter Care Teams Meat Hanger Relationship Specialty Start Date End Date No Ref-Primary, Physician PCP - General 08/08/23 [place] [address] [facility] [address] [place], [place] [address] Cardiovascular Disease 08/08/23 Mikhail Prieto MD [address] [facility] [address] [place], [place] [address] Assigned Heart and Vascular Provider 08/23/23 documented as of this encounter
[2024-09-15 02:04] VITALS: BP 123/74; PULSE 89; RESP 18; TEMP 36.8; O2SAT 99; BMI 26.6
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
--- OUTSIDE RECORDS SUMMARY | 2024-09-15 03:11 | XMS_ITS | Encounter Summary ---
Author Organization [place] Address [facility] [place] [address] Care Team Providers Care Top Lift Compresser Name Role Phone Mikhail Prieto MD Unavailable [phone] No Ref-Primary, Physician Primary Care Provider Mikhail Prieto MD Unavailable [phone] Reason for Visit * Reason Onset Date Comments Call to schedule test 08/28/2023 Re-schedul e echo stress today Encounter Details Date Type Department Care Team (Late st Contact Info) Description 08/28/2023 [facility] Heart [facility] [address] [facility] [address] [place] [address] Mikhail Prieto MD [address] [facility] [address] [place], [place] [id number] Call to schedule test (Re-schedule echo stress [...] on file Legal Sex Female 10:00 AM IT INFRASTRUCTURE MANAGER Gender Identity Not on file Sexual Orientation [...] Not Applicable Thank you! [facility] INFRASTRUCTURE MANAGER documented in this encounter Plan of Treatment Not on file documented as of this encounter Visit Diagnoses Not on filedocumented in this encounter Care Teams Top Lift Compresser Relationship Specialty Start Date End Date No Ref-Primary, Physician PCP - General 08/08/23 [place] [address] [facility] [address] [place], [place] [address] Cardiovascular Disease 08/08/23 Mikhail Prieto MD [address] [facility] [address] [place], [place] [address] Assigned Heart and Vascular Provider 08/23/23 documented as of this encounter
--- OUTSIDE RECORDS SUMMARY | 2024-09-15 03:11 | XMS_ITS | Encounter Summary ---
Author Organization [place] Address [facility] [place] [address] Care Team Providers Care Slide Fastener Repairer Name Role Phone Mikhail Prieto MD Unavailable [phone] No Ref-Primary, Physician Primary Care Provider Mikhail Prieto MD Unavailable [phone] Encounter Details Date Type Department Care Team (Late st Contact Info) Description 07/24/2023 External Order Results [facility] [address] [place] [address] Outside, Provider Social History Tobacco Use Types Packs/Day Years Used Date Smoking Tobacco: Never Assessed Adolescent Education Answer Date Record ed Getting School Help Needed Not on file 03/22 Comments Unknown Sex and Gender Information Value Date Recorded Sex Assigned at Not on file Legal Sex Female 10:00 AM AD TERMINAL MAKEUP OPERATOR Gender Identity Not on file Sexual Orientation Not on file documented as of this encounter Plan of Treatment Not on file documented as of this encounter Procedures Procedure Name Priority Date/Time Associated Diagnosis Comments LIPASE Routine 07/24/2023 5:53 AM AD TERMINAL MAKEUP OPERATOR CRP INFLAMMATION Routine 07/24/2023 5:53 AM AD TERMINAL MAKEUP OPERATOR COMPREHENSIVE METABOLIC PANEL Routine 07/24/2023 5:53 AM AD TERMINAL MAKEUP OPERATOR CBC WITH PLATELETS Routine 07/24/2023 5: 53 AM AD TERMINAL MAKEUP OPERATOR documented in this encounter Results * (ABNORMAL) Comprehensive metabolic panel (07/24/2023 5:53 AM AD TERMINAL MAKEUP OPERATOR) [facility] Sodium (External) 137 135 - 149 mmol/L [...] BLOOD SPECIMEN / Unknown 07/24/2023 5:53 AM AD TERMINAL MAKEUP OPERATOR Narrative ALE PFT - 08/12/2023 4:55 AM AD TERMINAL MAKEUP OPERATOR Verified by Javier Bazzi on 08/12/2023. us Ginny Wells MD LAB - BLOOD ORDERABLES Edited Re teja - Final ALE BULL NON-INTERFACED (ONBASE SCANS) * CRP inflammation (07/24/2023 5:53 AM AD TERMINAL MAKEUP OPERATOR) CRP Inflammation (External) 1.1 0.5 - 5.0 mg/dL NON-INTERFACE D (ONBASE SCANS) Blood BLOOD SPECIMEN / Unknown 07/24/2023 5:53 AM AD TERMINAL MAKEUP OPERATOR Narrative BREEZE PFT - 08/12/2023 4:55 AM AD TERMINAL MAKEUP OPERATOR Verified by Javier Bazzi on 08/12/2023. us Ginny Wells MD LAB - BLOOD ORDERABLES Edited [facility] Performing Organization Address City/[facility]/ZIP Co de Phone Number ALE PFT NON-INTERFACED (ONBASE SCANS) * Lipase (07/24/2023 5:53 AM AD TERMINAL MAKEUP OPERATOR) Lipase Level (External) 153 23 - 300 U/L NON-INTERFACED (ONBASE SCANS) Blood BLOOD SPECIMEN / Unknown 07/24/2023 5:53 AM AD TERMINAL MAKEUP OPERATOR Narrative BREEZE PFT - 08/12/2023 4:55 AM AD TERMINAL MAKEUP OPERATOR Verified by Javier Bazzi on 08/12/2023. us Ginny Wells MD LAB - BLOOD ORDERABLES Edited Re teja [facility] ALE PFT NON-INTERFACED (ONBASE SCANS) * (ABNORMAL) CBC with platelets (07/24/2023 5:53 AM AD TERMINAL MAKEUP OPERATOR) WBC Count (External) 7.24 4.50 - 11.00 [...] BLOOD SPECIMEN / Unknown 07/24/2023 5:53 AM AD TERMINAL MAKEUP OPERATOR Narrative ALE PFT - 08/12/2023 4:55 AM AD TERMINAL MAKEUP OPERATOR Verified by Javier Bazzi on 08/12/2023. us Ginny Wells MD LAB - BLOOD ORDERABLES Edited Re sult - Final ALE PFT NON-INTERFACED (ONBASE SCANS) documented in this encounter Visit Diagnoses Not on filedocumented in this encounter Care Teams Slide Fastener Repairer Relationship Specialty Start Date End Date No Ref-Primary, Physician PCP - General 08/08/23 [place] [address] [facility] [address] [place], [place] [address] Cardiovascular Disease 08/08/23 Mikhail Prieto MD [address] [facility] [address] [place], [place] [address] Assigned Heart and Vascular Provider 08/23/23 documented as of this encounter
--- OUTSIDE RECORDS SUMMARY | 2024-09-15 03:12 | XMS_ITS | Clinical Summary ---
Author Organization [place] Address [address] [place] [address]. [place] [address] Care Team Providers Care Coach Operator Name Role Phone Mikhail Prieto MD Unavailable [phone] No Ref-Primary, Physician Primary Care Provider Mikhail Prieto MD Unavailable [phone] Allergies Active Allergy Reactions Criticality Noted Date [...] on file Legal Sex Female 10:00 AM SHIPS EQUIPMENT ENGINEER Gender Identity Not on file Sexual Orientation Not on file Last Filed Vital Signs Vital Sign Reading Time Taken Comments Blood Pressure 134/74 08/13/2023 1:56 PM SHIPS EQUIPMENT ENGINEER Pulse 104 08/13/2023 1:56 PM SHIPS EQUIPMENT ENGINEER Temperature - - Respiratory Rate - - Oxygen Saturation - - Inhaled Oxygen Concentration - - Weight - - Height 172.7 cm (5' 8) 08/13/2023 1:56 PM SHIPS EQUIPMENT ENGINEER Body Mass Index - - Plan of [...] COMPREHENSIVE METABOLIC PANEL Routine 07/24/2023 5:53 AM SHIPS EQUIPMENT ENGINEER from Last 3 Months or Most Recently Relevant to Health Maintenance Results * (ABNORMAL) Comprehensive metabolic panel (07/24/2023 5:53 AM SHIPS EQUIPMENT ENGINEER) Sodium (External) 137 135 - 149 mmol/L [...] BLOOD SPECIMEN / Unknown 07/24/2023 5:53 AM SHIPS EQUIPMENT ENGINEER Narrative STANLEYE PFT - 08/12/2023 4:55 AM SHIPS EQUIPMENT ENGINEER Verified by Javier Bazzi on 08/12/2023. us Ginny Wells MD LAB - BLOOD ORDERABLES Edited Re teja - Final CEMEZE PFT NON-INTERFACED (ONBASE SCANS) from Last 3 Months or Most Recently Relevant to Health Maintenance Insurance [facility] [employer] [facility] [employer] [employer] Care Teams Coach Operator Relationship Specialty Start Date End Date No Ref-Primary, Physician PCP - General 08/08/23 [place] [address] [facility] [address] [place], [place] [address] Cardiovascular Disease 08/08/23 Mikhail Prieto MD [address] [facility] [address] [place], [place] [address] Assigned Heart and Vascular Provider 08/23/23
--- OUTSIDE RECORDS SUMMARY | 2024-09-15 03:12 | XMS_ITS | Data Portability ---
Author Organization [facility] [employer], [id number] Office* Address [address] [id number] Assessment No assessment recorded. Plan of Treatment Reminders Order Date Submit Date Provider Last Modified By Organization Details Last Modified Time Details Appointments None recorded. Lab HbA1c (hemoglobi n A1c), blood 2016 017 [facility] ([place]), [address] [place], [address], 8 05:02:20 CMP, serum or plasma 2016 017 SANTI [facility] ([place]), [address] [place], [address], 8 05:01:35 TSH, ultra-sens itive, serum 2016 017 SANTI [facility] ([place]), [address] [place], [address], 8 05:02:55 C-peptide, serum 2016 017 [email or web address] [facility] ([place]), [address] [place], [address], 7 01:54:14 lipid panel, serum 2016 017 [email or web address] [facility] ([place]), [address] [place], [address], 7 01:54:15 lipid panel, serum 2015 016 DBA_PATCH_ [id number] [facility] ([place]), [address] [facility], [place], [address], 6 04:26:19 hemoglobin A1C, fingerstic k 2015 016 DBA_PATCH_ [id number] In-Office Order, Internal Use Only DO Not Attach Compendium DO Not Attach Compendium, Do Not Delete/merge, [id number] 6 04:26:23 TSH + free T4, serum 2015 016 DBA_PATCH_ [id number] [facility] ([place]), [address] [place], [address], 6 04:26:35 hemoglobin A1C, fingerstic k 2015 016 [email or web address] In-Office Order, Internal Use Only DO Not Attach Compendium DO Not Attach Compendium, Do Not Delete/merge, [id number] 6 13:15:55 CMP, serum or plasma 2015 016 SANTI [facility] ([place]), [address] [facility], [place], [address], 6 14:15:58 lipid panel, serum 2015 016 SANTI [facility] ([place]), [address] [facility], [place], [address], 6 14:15:59 TSH + free T4, serum 2015 016 SANTI [facility] ([place]), [address] [facility], [place], [address], 6 14:15:57 microalbum in/creatin ine, mass ratio, urine 2015 016 SANTI [facility] ([place]), [address], [place], [address], 6 14:16:00 lipid panel, serum 2014 015 [email or web address] [facility] ([place]), [address] [place], [address], 5 08:00:11 hemoglobin A1C, fingerstic k 2014 015 [email or web address] In-Office Order, Internal Use Only DO Not Attach Compendium DO Not Attach Compendium, Do Not Delete/merge, [id number] 5 12:27:17 CMP, serum or plasma 2014 015 [email or web address] [facility] ([place]), [address] [place], [address], 5 08:00:12 TSH + free T4, serum 2014 015 [email or web address] [facility] ([place]), [address] [place], [address], 5 08:00:[address] referral - no referral required 2016 017 [email or web address] [place], [address] [facility], [facility] [address], [place], , 7 11:49:50 diabetic ophthalmol ogy referral - no referral required 2015 016 DBA_PATCH_ [id number] Armond Flores MD, [address], [facility] [address], [address], 6 04:26:21 Procedures None recorded. Surgeries None recorded. Imaging MAMMO, screening, digital, bilateral 2016 017 SANTI Not available 8 05:04:15 Medication Orders FreeStyle Lite Strips 2016 017 INTERFACE [facility], [id number] [place], [place], , 7 14:37:09 metformin ER 500 mg tablet,ext ended release 24 hr 2016 017 [facility], [address] [place], [place], , 7 14:37:09 metformin ER 500 mg tablet,ext ended release 24 hr 2016 017 [facility], [address] [place], [place], , 7 22:34:59 metformin ER 500 mg tablet,ext ended release 24 hr 2015 016 [facility], [address] [place], [place], , 6 04:26:41 Synthroid 100 mcg tablet 2015 016 [facility], [address] [place], , 6 04:26:25 glipizide ER 5 mg tablet, extended release 24 hr 2015 [address] [place] [address] [facility], [address] [place], [place], , 6 08:14:42 metformin ER 500 mg tablet,ext ended release 24 hr 2015 016 [facility], [address] [place], [place], , 6 13:15:56 Synthroid 100 mcg tablet 2015 016 [facility], [address] [place], , 6 13:15:56 FreeStyle Lite Strips 2014 015 [facility], [address] [place], , 5 12:27:18 metformin ER 500 mg tablet,ext ended release 24 hr 2014 015 [facility], [address] [place], , 5 12:27:18 glipizide ER 5 mg tablet, extended release 24 hr 2014 015 jennifer Mora [facility], [address] [place], , 6 08:14:42 Synthroid 100 mcg tablet 2014 015 [facility], [address] [place], , 5 12:27:18 Patient TargetsNo targets recorded. Patient Instructions Encounter Date Encounter Id Patient Instructions Last Modified By Organization Details Last Modified Time 04/18/2015 [id number] high cholesterol : care instructions [email or web address] Not available 04/19/2015 08:30:42 hypothyroidism: care instructions [email or web address] Not available 04/19/2015 08:30:42 Add glipizide to her medicines discussed use and s.e. increase aerobic exercise strive for a lower fat/carb diet [facility] Not available 04/18/2015 12:27:18 10/31/2015 [id number] Check labs congratulatedher on the lower a1c 5.9 continue lower carb diet [facility] Not available 10/31/2015 13:15:56 06/07/2016 [id number] refilled metformin and synthroid discussed elevated bp - she is on cold medicines; she will check her bp at home and give me her readings; declined lisinopril for now; check labs refer to ophthal refer to podiatry (declined foot exam today) f/up one month for pneumonia shot [facility] Not available 06/07/2016 09:11:23 11/21/2016 [id number] palpitations: care instructions SANTI Not available 12/30/2016 05:01:16 Eye exam yearly Continue with regular podiatry visits Declining starting lisinopril for kidney protection; okay to monitor as BP in good range today Will check labs Palpitations- will work on staying well hydrated on fasting days; if reoccurs will follow up for further eval (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) Decrease to metformin 500mg daily and will recheck labs in 3 months Not available 11/26/2016 18:44:57 05/20/2017 [id number] learning about breast cancer screening SANTI Not available 06/23/2017 05:05:40 hypothyroidism: care instructions SANTI Not available 06/23/2017 05:05:40 will come back for fasting blood work cont with low carb diet and regular exercise as tolerated follow up 6 months-sooner as needed Not available 05/21/2017 22:19:17 Reason for Referral Diabetic Ophthalmology Refer ral for Disorder of nervous system due to type 2 diabetes mellitus no referral required Referring Physician: Adan Urbina, Family Medicine, Encounter Date: 06/07/2016 Cigarette Maker Referral for Gy necologic examination no referral required Referring Physician: Mariangel Thorpe, Family Medicine, Encounter Date: 05/20/2017 Results Created Date Observation Date Name Description Value Unit Range Abnormal Flag Note LastModifiedBy Organization Detail LastModifiedTime 06/07/20 16 06/07/2016 hemog lobin A1C, finge rstic k HGB A1C 4.8% Not Available In-Office Order Internal Use Only DO Not Attach Compendium DO Not Attach Compendium, Do Not Delete/merge, [id number] 06/07/2016 08:21:56 10/31/19 16 10/31/2015 hemog lobin A1C, finge rstic k HGB A1C 5.9 Not Available In-Office Order Internal Use Only DO Not Attach Compendium DO Not Attach Compendium, Do Not Delete/merge, [id number] 10/31/2015 08:23:05 04/18/20 15 04/18/2015 hemog lobin A1C, finge rstic k HGB A1C 7.6 Not Available In-Office Order Internal Use Only DO Not Attach Compendium DO Not Attach Compendium, Do Not Delete/merge, [id number] 04/18/2015 10:06:24 10/31/19 16 11/01/2015 TSH + free T4, serum TSH 1.440 uIU/m L 0.450- 4.500 Not Available [facility] ([facility]) [address] [place], [address], 11/01/2015 14:15:57 10/31/19 16 11/01/2015 TSH + free T4, serum T4,free(dire ct) 1.40 NG/dL 0.82-1 .77 Not Available [facility] ([facility]) [address] [place], [address], 11/01/2015 14:15:57 10/31/19 16 10/31/2015 CMP, serum or plasm a potassium, serum 4.5 mmol/ L 3.5-5. 2 Not Available [facility] ([facility]) [address] [place], [address], 11/01/2015 14:15:58 10/31/19 16 10/31/2015 CMP, serum or plasm a chloride, serum 105 mmol/ L 97-108 Not Available [facility] ([facility]) [address] [place], [address], 11/01/2015 14:15:58 10/31/19 16 11/01/2015 CMP, serum or plasm a glucose, serum 150 mg/dL 65-99 above high normal Not Available [facility] ([facility]) [address] [place], [address], 11/01/2015 14:15:58 10/31/19 16 11/01/2015 CMP, serum or plasm a BUN 11 mg/dL 6-24 Not Available [facility] ([facility]) [address] [place], [address], 11/01/2015 14:15:58 10/31/19 16 11/01/2015 CMP, serum or plasm a creatinine, serum 0.65 mg/dL 0.57-1 .00 Not Available [facility] ([facility]) [address] [place], [address], 11/01/2015 14:15:58 10/31/19 16 11/01/2015 CMP, serum or plasm a eGFR if nonafricn AM 111 mL/mi n/1.7 3 >59 Not Available [facility] ([facility]) [address] [facility] [place], [address], 11/01/2015 14:15:58 10/31/19 16 11/01/2015 CMP, serum or plasm a eGFR if africn AM 128 mL/mi n/1.7 3 >59 Not Available [facility] ([facility]) [address] [place], [address], 11/01/2015 14:15:58 10/31/19 16 11/01/2015 CMP, serum or plasm a BUN/creatini ne ratio 17 9-23 Not Available [facility] ([facility]) [address] [place], [address], 11/01/2015 14:15:58 10/31/19 16 11/01/2015 CMP, serum or plasm a sodium, serum 139 mmol/ L 134-14 4 Not Available [facility] ([facility]) [address] [place], [address], 11/01/2015 14:15:58 10/31/19 16 11/01/2015 CMP, serum or plasm a carbon dioxide, total 20 mmol/ L 18-29 Not Available [facility] ([facility]) [address] [place], [address], 11/01/2015 14:15:58 10/31/19 16 11/01/2015 CMP, serum or plasm a calcium, serum 9.3 mg/dL 8.7-10 .2 Not Available [facility] ([facility]) [address] [place], [address], 11/01/2015 14:15:58 10/31/19 16 11/01/2015 CMP, serum or plasm a protein, total, serum 7.0 g/dL 6.0-8. 5 Not Available [facility] ([facility]) [address] [facility] [place], [address], 11/01/2015 14:15:58 10/31/19 16 11/01/2015 CMP, serum or plasm a albumin, serum 4.6 g/dL 3.5-5. 5 Not Available [facility] ([facility]) [address] [facility] [place], [address], 11/01/2015 14:15:58 10/31/19 16 11/01/2015 CMP, serum or plasm a globulin, total 2.4 g/dL 1.5-4. 5 Not Available [facility] ([facility]) [address] [facility] [place], [address], 11/01/2015 14:15:58 10/31/19 16 11/01/2015 CMP, serum or plasm a A/G ratio 1.9 1.1-2. 5 Not Available [facility] ([facility]) [address] [facility] [place], [address], 11/01/2015 14:15:58 10/31/19 16 11/01/2015 CMP, serum or plasm a bilirubin, total 1.4 mg/dL 0.0-1. 2 above high normal Not Available [facility] ([facility]) [address] [facility] [place], [address], 11/01/2015 14:15:58 10/31/19 16 11/01/2015 CMP, serum or plasm a alkaline phosphatase, S 45 IU/L 39-117 Not Available [facility] ([facility]) [address] [facility] [place], [address], 11/01/2015 14:15:58 10/31/19 16 11/01/2015 CMP, serum or plasm a AST (SGOT) 22 IU/L 0-40 Not Available [facility] ([facility]) [address] [place], [address], 11/01/2015 14:15:58 10/31/19 16 11/01/2015 CMP, serum or plasm a ALT (SGPT) 23 IU/L 0-32 Not Available [facility] ([facility]) [address] [facility] [place], [address], 11/01/2015 14:15:58 10/31/19 16 11/01/2015 lipid panel , serum cholesterol, total 112 mg/dL 100-19 9 Not Available [facility] ([facility]) [address] [facility] [place], [address], 11/01/2015 14:15:59 10/31/19 16 11/01/2015 lipid panel , serum triglyceride s 162 mg/dL 0-149 above high normal Not Available [facility] ([facility]) [address] [place], [address], 11/01/2015 14:15:59 10/31/19 16 11/01/2015 lipid panel , serum HDL cholesterol 31 mg/dL >39 below low normal ACCOR DING TO ATP-I II GUIDE LINES , HDL-C >59 MG/DL IS CONSI DERED A NEGAT RUBY RISK FACTO R FOR CHD. Not Available [facility] ([facility]) [address] [facility], [place], [address], 11/01/2015 14:15:59 10/31/19 16 11/01/2015 lipid panel , serum VLDL cholesterol ildefonso 32 mg/dL 5-40 Not Available [facility] ([facility]) [address] [place], [address], 11/01/2015 14:15:59 10/31/19 16 11/01/2015 lipid panel , serum LDL cholesterol calc 49 mg/dL 0-99 Not Available [facility] ([facility]) [address] [place], [address], 11/01/2015 14:15:59 10/31/19 16 11/01/2015 lipid panel , serum comment: CORRECTIONS NURSE Not Available [facility] ([facility]) [address] [facility], [place], [address], 11/01/2015 14:15:59 10/31/19 16 11/01/2015 micro album in/cr eatin ine, mass ratio , urine creatinine, urine 177.7 mg/dL 15.0-2 78.0 EFF ECTIV E NOVEMBER 07, 2015 THE REFER ENCE INTER URBAN FOR CREAT ININE , URINE WILL BE ROMO ING TO: NOT ESTAB . Not Available [facility] ([facility]) [address] [facility], [place], [address], 11/01/2015 14:15:59 10/31/19 16 11/01/2015 micro album in/cr eatin ine, mass ratio , urine microalbumin , urine 139.4 ug/mL 0.0-17 .0 above high normal EFF ECTIV E NOVEMBER 07, 2015 THE REFER ENCE INTER URBAN FOR MICRO ALBUM IN, URINE WILL BE ROMO ING TO: NOT ESTAB . Not Available [facility] ([facility]) [address] [facility], [place], [address], 11/01/2015 14:15:59 10/31/19 16 11/01/2015 micro album in/cr eatin ine, mass ratio , urine microalb/cre at ratio 78.4 mg/g_ creat 0.0-30 .0 above high normal Not Available [facility] ([facility]) [address] [place], [address], 11/01/2015 14:15:59 10/31/19 16 11/01/2015 cardi bonita myers asses sment panel , serum interpretati on NOTE SUPPL EMENT REPOR T IS AVAIL ABLE. Not Available [facility] ([facility]) [address] [facility], [place], [address], 11/01/2015 14:16:00 06/07/20 16 06/08/2016 TSH + free T4, serum TSH 2.620 uIU/m L 0.450- 4.500 Not Available [facility] ([facility]) [address] [place], [address], 06/08/2016 06:38:52 06/07/20 16 06/08/2016 TSH + free T4, serum T4,free(dire ct) 1.26 NG/dL 0.82-1 .77 Not Available [facility] ([facility]) [address] [place], [address], 06/08/2016 06:38:52 06/07/20 16 06/08/2016 CMP, serum or plasm a glucose, serum 159 mg/dL 65-99 above high normal Not Available [facility] ([facility]) [address] [place], [address], 06/08/2016 06:38:53 06/07/20 16 06/08/2016 CMP, serum or plasm a BUN 17 mg/dL 6-24 Not Available [facility] ([facility]) [address] [facility] [place], [address], 06/08/2016 06:38:53 06/07/20 16 06/08/2016 CMP, serum or plasm a creatinine, serum 0.62 mg/dL 0.57-1 .00 Not Available [facility] ([facility]) [address] [facility] [place], [address], 06/08/2016 06:38:53 06/07/20 16 06/08/2016 CMP, serum or plasm a eGFR if nonafricn AM 112 mL/mi n/1.7 3 >59 Not Available [facility] ([facility]) [address] [facility] [place], [address], 06/08/2016 06:38:53 06/07/20 16 06/08/2016 CMP, serum or plasm a eGFR if africn AM 129 mL/mi n/1.7 3 >59 Not Available [facility] ([facility]) [address] [facility] [place], [address], 06/08/2016 06:38:53 06/07/20 16 06/08/2016 CMP, serum or plasm a BUN/creatini ne ratio 27 9-23 above high normal Not Available [facility] ([facility]) [address] [place], [address], 06/08/2016 06:38:53 06/07/20 16 06/08/2016 CMP, serum or plasm a sodium, serum 141 mmol/ L 136-14 4 EFF ECTIV E DECEM CASEY 2015 THE REFER ENCE INTER URBAN FOR SODIU M, SERUM WILL BE ROMO ING TO: 134 - 144 Not Available [facility] ([facility]) [address] [place], [address], 06/08/2016 06:38:53 06/07/20 16 06/08/2016 CMP, serum or plasm a potassium, serum 4.4 mmol/ L 3.5-5. 2 Not Available [facility] ([facility]) [address] [place], [address], 06/08/2016 06:38:53 06/07/20 16 06/08/2016 CMP, serum or plasm a chloride, serum 103 mmol/ L 97-106 EFF ECTIV E DECEM CASEY 2015 THE REFER ENCE INTER URBAN FOR CHLOR STARR, SERUM WILL BE ROMO ING TO: 96 - 106 Not Available [facility] ([facility]) [address] [facility], [place], [address], 06/08/2016 06:38:53 06/07/20 16 06/08/2016 CMP, serum or plasm a carbon dioxide, total 19 mmol/ L 18-29 Not Available [facility] ([facility]) [address] [place], [address], 06/08/2016 06:38:53 06/07/20 16 06/08/2016 CMP, serum or plasm a calcium, serum 9.3 mg/dL 8.7-10 .2 Not Available [facility] ([facility]) [address] [facility], [address], 06/08/2016 06:38:53 06/07/20 16 06/08/2016 CMP, serum or plasm a protein, total, serum 7.2 g/dL 6.0-8. 5 Not Available [facility] ([facility]) [address] [facility] [place], [address], 06/08/2016 06:38:53 06/07/20 16 06/08/2016 CMP, serum or plasm a albumin, serum 4.7 g/dL 3.5-5. 5 Not Available [facility] ([facility]) [address] [facility] [place], [address], 06/08/2016 06:38:53 06/07/20 16 06/08/2016 CMP, serum or plasm a globulin, total 2.5 g/dL 1.5-4. 5 Not Available [facility] ([facility]) [address] [facility] [place], [address], 06/08/2016 06:38:53 06/07/20 16 06/08/2016 CMP, serum or plasm a A/G ratio 1.9 1.1-2. 5 Not Available [facility] ([facility]) [address] [facility] [place], [address], 06/08/2016 06:38:53 06/07/20 16 06/08/2016 CMP, serum or plasm a bilirubin, total 1.3 mg/dL 0.0-1. 2 above high normal Not Available [facility] ([facility]) [address] [facility] [place], [address], 06/08/2016 06:38:53 06/07/20 16 06/08/2016 CMP, serum or plasm a alkaline phosphatase, S 60 IU/L 39-117 Not Available [facility] ([facility]) [address] [facility] [place], [address], 06/08/2016 06:38:53 06/07/20 06/08/2016 CMP, serum or plasm a AST (SGOT) 15 IU/L 0-40 Not Available [facility] ([facility]) [address] [place], [address], 06/08/2016 06:38:53 06/07/20 16 06/08/2016 CMP, serum or plasm a ALT (SGPT) 18 IU/L 0-32 Not Available [facility] ([facility]) [address] [place], [address], 06/08/2016 06:38:53 06/07/20 16 06/08/2016 lipid panel , serum cholesterol, total 133 mg/dL 100-19 9 Not Available [facility] ([facility]) [address] [facility] [place], [address], 06/08/2016 06:38:54 06/07/20 16 06/08/2016 lipid panel , serum triglyceride s 195 mg/dL 0-149 above high normal Not Available [facility] ([facility]) [address] [facility] [place], [address], 06/08/2016 06:38:54 06/07/20 16 06/08/2016 lipid panel , serum HDL cholesterol 35 mg/dL >39 below low normal Not Available [facility] ([facility]) [address] [facility] [place], [address], 06/08/2016 06:38:54 06/07/20 16 06/08/2016 lipid panel , serum VLDL cholesterol ildefonso 39 mg/dL 5-40 Not Available [facility] ([facility]) [address] [facility] [place], [address], 06/08/2016 06:38:54 06/07/20 16 06/08/2016 lipid panel , serum LDL cholesterol calc 59 mg/dL 0-99 Not Available [facility] ([facility]) [address] [facility] [place], [address], 06/08/2016 06:38:54 06/07/20 16 06/08/2016 lipid panel , serum comment: CORRECTIONS NURSE Not Available [facility] ([facility]) [address] [facility] [place], [address], 06/08/2016 06:38:54 10/31/19 17 10/31/2016 CMP, serum or plasm a glucose, serum 130 mg/dL 65-99 above high normal Not Available [facility] ([facility]) [address] [facility] [place], [address], 10/31/2016 14:11:29 10/31/19 17 10/31/2016 CMP, serum or plasm a BUN 12 mg/dL 6-24 Not Available [facility] ([facility]) [address] [facility] [place], [address], 10/31/2016 14:11:29 10/31/19 17 10/31/2016 CMP, serum or plasm a creatinine, serum 0.59 mg/dL 0.57-1 .00 Not Available [facility] ([facility]) [address] [facility] [place], [address], 10/31/2016 14:11:29 10/31/19 17 10/31/2016 CMP, serum or plasm a eGFR if nonafricn AM 113 mL/mi n/1.7 3 >59 Not Available [facility] ([facility]) [address] [facility] [place], [address], 10/31/2016 14:11:29 10/31/19 17 10/31/2016 CMP, serum or plasm a eGFR if africn AM 131 mL/mi n/1.7 3 >59 Not Available [facility] ([facility]) [address] [facility] [place], [address], 10/31/2016 14:11:29 10/31/19 17 10/31/2016 CMP, serum or plasm a BUN/creatini ne ratio 20 9-23 Not Available [facility] ([facility]) [address] [facility] [place], [address], 10/31/2016 14:11:29 10/31/19 17 10/31/2016 CMP, serum or plasm a sodium, serum 138 mmol/ L 134-14 4 Not Available [facility] ([facility]) [address] [facility] [place], [address], 10/31/2016 14:11:29 10/31/19 17 10/31/2016 CMP, serum or plasm a potassium, serum 4.0 mmol/ L 3.5-5. 2 Not Available [facility] ([facility]) [address] [place], [address], 10/31/2016 14:11:29 10/31/19 17 10/31/2016 CMP, serum or plasm a chloride, serum 99 mmol/ L 96-106 Not Available [facility] ([facility]) [address] [place], [address], 10/31/2016 14:11:29 10/31/19 17 10/31/2016 CMP, serum or plasm a carbon dioxide, total 23 mmol/ L 18-29 Not Available [facility] ([facility]) [address] [place], [address], 10/31/2016 14:11:29 10/31/19 17 10/31/2016 CMP, serum or plasm a calcium, serum 9.1 mg/dL 8.7-10 .2 Not Available [facility] ([facility]) [address] [place], [address], 10/31/2016 14:11:29 10/31/19 17 10/31/2016 CMP, serum or plasm a protein, total, serum 6.8 g/dL 6.0-8. 5 Not Available [facility] ([facility]) [address] [place] [address], [address], 10/31/2016 14:11:29 10/31/19 17 10/31/2016 CMP, serum or plasm a albumin, serum 4.4 g/dL 3.5-5. 5 Not Available [facility] ([facility]) [address] [facility] [place], [address], 10/31/2016 14:11:29 10/31/1910/31/2016 CMP, serum or plasm a globulin, total 2.4 g/dL 1.5-4. 5 Not Available [facility] ([facility]) [address] [facility] [place], [address], 10/31/2016 14:11:29 10/31/1910/31/2016 CMP, serum or plasm a A/G ratio 1.8 1.2-2. 2 Not Available [facility] ([facility]) [address] [facility] [place], [address], 10/31/2016 14:11:29 10/31/19 17 10/31/2016 CMP, serum or plasm a bilirubin, total 1.3 mg/dL 0.0-1. 2 above high normal Not Available [facility] ([facility]) [address] [facility] [place], [address], 10/31/2016 14:11:29 10/31/1910/31/2016 CMP, serum or plasm a alkaline phosphatase, S 42 IU/L 39-117 Not Available [facility] ([facility]) [address] [facility] [place], [address], 10/31/2016 14:11:29 10/31/1910/31/2016 CMP, serum or plasm a AST (SGOT) 21 IU/L 0-40 Not Available [facility] ([facility]) [address] [facility] [place], [address], 10/31/2016 14:11:29 10/31/1910/31/2016 CMP, serum or plasm a ALT (SGPT) 20 IU/L 0-32 Not Available [facility] ([facility]) [address] [facility] [place], [address], 10/31/2016 14:11:29 10/31/19 17 10/31/2016 micro album in/cr eatin ine, mass ratio , urine creatinine, urine 183.4 mg/dL not estab. Not Available [facility] ([facility]) [address] [place], [address], 10/31/2016 14:11:31 10/31/19 17 10/31/2016 micro album in/cr eatin ine, mass ratio , urine microalbumin , urine 36.2 ug/mL not estab. Not Available [facility] ([facility]) [address] [place], [address], 10/31/2016 14:11:31 10/31/19 17 10/31/2016 micro album in/cr eatin ine, mass ratio , urine microalb/cre at ratio 19.7 mg/g_ creat 0.0-30 .0 Not Available [facility] ([facility]) [address] [facility], [place], [address], 10/31/2016 14:11:31 10/31/19 17 10/31/2016 HbA1c (hemo globi n A1c), blood hemoglobin A1C 5.0 % 4.8-5. 6 PRE-D IABET ES: 5.7 - 6.4 DIABE MIN: >6.4 GLYCE KHUSHBU CONTR OL FOR ADULT S WITH DIABE MIN: <7.0 Not Available [facility] ([facility]) [address] [facility], [place], [address], 10/31/2016 14:11:32 10/31/19 17 11/01/2016 insul in, serum insulin 14.0 uIU/m L 2.6-24 .9 Not Available [facility] ([facility]) [address] [place], [address], 11/01/2016 14:11:14 10/31/19 17 10/31/2016 lanie en autho rizat ion written authorizatio n MARYAM T LANIE EN AUTHO RIZAT ION RECEI RADHA. AUTHO RIZAT ION RECEI RADHA FROM ALONA FERNANDO TT 10-31 LOGGE D BY MICHELLE MEZA Not Available [facility] ([facility]) [address], [place], [address], 11/01/2016 14:11:15 Result Notes None recorded. Problems Name Problem SNOMED Code Status Onset Date Resolution Date Notes Provider Name and Address Organization Details Recorded Time Well controlle d type 2 diabetes mellitus 930664992 Active [address], [place], [address] , [facility] 7 08:25:15 Disorder of nervous system due to type 2 diabetes mellitus 866152890 Active [address], [place], [address] , [facility] 7 14:10:52 Attention deficit hyperacti vity disorder 887466951 Active 2005 [facility] 6 08:08:44 Elevated blood-pre ssure reading without diagnosis of hypertens ion 405463214 Active 2013 [facility] 6 08:08:44 Exostosis 134680764 Active 2013 [facility] 6 08:08:44 Type 2 diabetes mellitus without complicat ion 097042678 Completed 201005/20/[address], [place], [address] , [facility] 7 14:10:30 Uncontrol led type 2 diabetes mellitus 445415239 Active 2013 [facility] 6 08:08:44 Disorder of nervous system due to type 2 diabetes mellitus 668557552 Completed 201305/20/[address], [place], [address] , [facility] 7 14:10:52 Hypothyro idism 32621759 Active 2008 Adan Urbina MD [address], [place], [address] , [facility] 6 13:15:55 Proteinur ia 96161136 Active 2013 [facility] 6 08:08:44 Viral disease 50407473 Completed 201206/07/2016 NOYSAMY BRAXTON [facility] 6 08:15:03 Electroca rdiogram abnormal 493576300 Active 2013 [facility] 6 08:08:44 Urticaria 115810551 Completed 201206/07/2016 JEFRY BRAXTON [facility] 6 08:14:59 Migraine with aura 7222017 Active 2008 [facility] 6 08:08:44 Depressiv e disorder 09171566 Active 2005 [facility] 6 08:08:44 Pure hyperchol esterolem ia 843510580 Active 2013 Adan Urbina MD [address], [place], [address] , [facility] 6 13:15:55 Influenza vaccine needed 35489075128 06 Completed 201306/07/2016 JEFRY BRAXTON [facility] 6 08:14:56 Pre-surge ry evaluatio n Completed 201311/21/2016 Kaitlin Ramos [facility] 7 08:17:24 Lipoma of skin and subcutane ous tissue (excludin g face) 503646717 Active 2012 [facility] 6 08:08:44 Infective otitis externa 44566807 Completed 201106/07/2016 NOYSAMY FOX [facility] 6 08:15:11 Pre-surge ry testing Completed 201311/21/2016 Kaitlin rosario [facility] 7 08:17:28 Problem Notes None recorded. Procedures Surgical History Date Name Laterality Status Provider Name and Address Organization Details Recorded Time 4 Date of Last Pap Smear completed Jane Coleman [facility] 05/20/2017 14:03:07 1 Caesarean Section completed JEFRY BRAXTON [facility] 06/07/2016 08:15:59 4 Breast Surgery completed JEFRY BRAXTON [facility] 06/07/2016 08:16:15 Imaging Results None recorded. Procedure Notes None recorded. Medical Equipment None Reported. Allergies Allergen ID Allergen Name Allergen Category Reaction Reaction Severity Criticality Documentation Date Start Date Code Code System Note Provider Name and Address Organization Details Recorded Time 979635 Bactrim medicatio n hives Not available Not available 03/12/20152012 88443 9 RxNorm COMME NT: STATU S: ACTIV E; Not Available Not Available Not Available 146256 Substance with sulfonami de structure and antibacte rial mechanism of action (substanc e) medicatio n hives Not available Not available 03/12/20152013 90541 8003 SNOMED COMME NT: STATU S: ACTIV E; Not Available Not Available Not Available Medications Name Sig Start Date Stop Date Status Note LastModified by Organization Details LastModified Time fluoxetin e 40 mg capsule TAKE 1 CAPSULE DAILY. 02/28 completed TYPE: OTHER; DAYS TO TAKE 30; RX#: [id number] ; MANAGED BY: ADAN URBINA; ORDERED BY: ADAN URBINA; AUTHORIZ ATION: N; LAST UPDATED BY: ADAN URBINA; DO NOT FILL BEFORE DATE: 28 FEB 2006; SENT TO: 0; STATUS: DISCONTI NUED; MEDICATI ON STATUS: DISCONTI NUED Not Available Not Available Not Available amoxicill in 500 mg capsule 12/01 completed Not Available Not Available Not Available silver sulfadiaz ine 1 % topical cream active Not Available Not Available Not Available prednison e 10 mg tablet 6 TABS TODAY, 5 TOMORROW , 4 ON DAY 3, 3 ON DAY 4, 2 ON DAY 5,1 ON DAY 6 THEN STOP 05/25 completed TYPE: OTHER; DAYS TO TAKE 6; RX#: [id number] 9; EXPECTED ACTION: EVALUATE ; EXPECTED ACTION DATE: 04 FEB 2013; MANAGED BY: BRITTON TUBBS; ORDERED BY: BRITTON TUBBS; AUTHORIZ ATION: N; LAST UPDATED BY: TIFFANIE MOON; SENT TO: [id number]; STATUS: RECORD D/C; MEDICATI ON STATUS: DISCONTI NUED Not Available Not Available Not Available gabapenti n 600 mg tablet 11/21 completed Not Available Not Available Not Available FreeStyle Test Strips in vitro test USE ONE STRIP FOR TESTING 3 TIMES PER DAY 2012 active TYPE: FILLED RX; DAYS TO TAKE 0; RX#: [id number] 3; EXPECTED ACTION: EVALUATE ; MANAGED BY: BRITTON TUBBS; ORDERED BY: BRITTON TUBBS; AUTHORIZ ATION: N; LAST UPDATED BY: BRITTON TUBBS; SENT TO: [facility]; ANNOTATI ONS: BRITTON TUBBS 3:42PM FORMULAR Y OVERRIDE REASON: NO FORMULAR Y EQUIVALE NT EXISTS;; STATUS: PRESCRIB ED,EDITE D; MEDICATI ON STATUS: ACTIVE Not Available Not Available Not Available triazolam 0.25 mg tablet 11/21 completed Not Available Not Available Not Available azithromy jude 250 mg tablet TAKE 2 TABLETS ON DAY 1 THEN TAKE 1 TABLET A DAY FOR 4 DAYS. active Not Available Not Available No t Available ibuprofen 800 mg tablet 05/20 completed Not Available Not Available Not Available Lidocaine Viscous 2 % mucosal solution TAKE 1 TABLESPO ON GARGLE (October) PO UP TO Q 3HR PRN (MAX 8 DOSES / 24 HR) 11/04 completed TYPE: OTHER; DAYS TO TAKE 10; RX#: [id number] 3; EXPECTED ACTION: EVALUATE ; EXPECTED ACTION DATE: 12 NOV 2011; MANAGED BY: KEN THORPE; ORDERED BY: KEN THORPE; AUTHORIZ ATION: N; LAST UPDATED BY: MOODY CHRISTY; SENT TO: [facility]; STATUS: DISCONTI NUED; MEDICATI ON STATUS: DISCONTI NUED Not Available Not Available Not Available ofloxacin 0.3 % eye drops active Not Available Not Available Not Available sumatript an 100 mg tablet TAKE 1 TABLET FOR MIGRAINE RELIEF. MAY REPEAT 2 HOURS LATER. MAXIMUM 200MG/DA Y. 07/25 completed TYPE: OTHER; DAYS TO TAKE 9; RX#: [id number] ; EXPECTED ACTION: EVALUATE ; EXPECTED ACTION DATE: 26 JUN 2009; MANAGED BY: BRITTON TUBBS; ORDERED BY: BRITTON TUBBS; AUTHORIZ ATION: N; LAST UPDATED BY: KEN THORPE; DO NOT FILL BEFORE DATE: 30 MAY 2010; SENT TO: 0; STATUS: RECORD D/C; MEDICATI ON STATUS: DISCONTI NUED Not Available Not Available Not Available urea 40 % topical cream active Not Available Not Available Not Available Synthroid 100 mcg tablet Take 1 tablet daily on an empty stomach 2016 active Not Available Not Available Not Avai lable propranol ol ER 60 mg capsule,2 4 hr,extend ed release TAKE 1 CAPSULE DAILY 07/25 completed TYPE: OTHER; DAYS TO TAKE 30; RX#: [id number] ; EXPECTED ACTION: EVALUATE ; EXPECTED ACTION DATE: 03 AUG 2010; MANAGED BY: BRITTON TUBBS; ORDERED BY: BRITTON TUBBS; AUTHORIZ ATION: N; LAST UPDATED BY: KEN THORPE; SENT TO: [facility]; STATUS: RECORD D/C; MEDICATI ON STATUS: DISCONTI NUED Not Available Not Available Not Available methylpre dnisolone 4 mg tablet TAKE DIRECTED . 11/04 completed TYPE: OTHER; DAYS TO TAKE 5; RX#: [id number] 3; EXPECTED ACTION: EVALUATE ; EXPECTED ACTION DATE: 16 OCT 2011; MANAGED BY: KEN THORPE; ORDERED BY: KEN THORPE; AUTHORIZ ATION: N; LAST UPDATED BY: MOODY CHRISTY; DO NOT FILL BEFORE DATE: 10 OCT 2012; SENT TO: 0; STATUS: DISCONTI NUED; MEDICATI ON STATUS: DISCONTI NUED Not Available Not Available Not Available glipizide ER 5 mg tablet, extended release 24 hr Take 1 tablet every day by oral route. 06/07 completed Not Available Not Available Not Available Adderall XR 20 mg capsule,e xtended release TAKE 1 CAPSULE DAILY. 08/24 completed TYPE: OTHER; DAYS TO TAKE 30; RX#: [id number] ; MANAGED BY: ADAN URBINA; ORDERED BY: ADAN URBINA; AUTHORIZ ATION: N; LAST UPDATED BY: ADAN URBINA; DO NOT FILL BEFORE DATE: 24 AUG 2008; SENT TO: 0; STATUS: DISCONTI NUED; MEDICATI ON STATUS: DISCONTI NUED Not Available Not Available Not Available cefadroxi l 500 mg capsule active Not Available Not Available Not Available ofloxacin 0.3 % ear drops active Not Available Not Available Not Available amoxicill in 875 mg tablet TAKE 1 TABLET TWICE DAILY 11/11 completed TYPE: ACTIVE; DAYS TO TAKE 10; RX#: [id number] 5; EXPECTED ACTION: COMPLETE ; EXPECTED ACTION DATE: 12 NOV 2011; MANAGED BY: KEN THORPE; ORDERED BY: KEN THORPE; AUTHORIZ ATION: N; LAST UPDATED BY: KEN THORPE; SENT TO: [facility]; STATUS: PRESCRIB ED,YARIEL Bee,[facility]; MEDICATI ON STATUS: COMPLETE Not Available Not Available Not Available erythromy jude 5 mg/gram (0.5 %) eye ointment 05/20 completed Not Available Not Available Not Available Fluoxetin e 20 mg capsule TAKE 1 CAPSULE DAILY. 08/11 completed TYPE: OTHER; DAYS TO TAKE 30; RX#: [id number] ; MANAGED BY: ADAN URBINA; ORDERED BY: ADAN URBINA; AUTHORIZ ATION: N; LAST UPDATED BY: ADAN URBINA; DO NOT FILL BEFORE DATE: 11 AUG 2008; SENT TO: 0; STATUS: DISCONTI NUED; MEDICATI ON STATUS: DISCONTI NUED Not Available Not Available Not Available tobramyci n 0.3 % eye drops active Not Available Not Available No t Available ranitidin e 150 mg tablet TAKE 1 TABLET EVERY 12 HOURS NEEDED. 2012 active TYPE: FILLED RX; DAYS TO TAKE 30; RX#: [id number] 7; EXPECTED ACTION: EVALUATE ; EXPECTED ACTION DATE: 31 DEC 2012; MANAGED BY: BRITTON TUBBS; ORDERED BY: BRITTON TUBBS; AUTHORIZ ATION: N; LAST UPDATED BY: BRITTON TUBBS; SENT TO: [facility]; STATUS: PRESCRIB ED,EDITE D; MEDICATI ON STATUS: ACTIVE Not Available Not Available Not Available Synthroid 88 mcg tablet TAKE 1 TABLET DAILY DIRECTED . 12/02 completed TYPE: OTHER; DAYS TO TAKE 30; RX#: [id number] ; EXPECTED ACTION: EVALUATE ; EXPECTED ACTION DATE: 29 MAY 2010; MANAGED BY: BRITTON TUBBS; ORDERED BY: BRITTON TUBBS; AUTHORIZ ATION: N; LAST UPDATED BY: BRITTON TUBBS; SENT TO: [facility]; STATUS: RECORD D/C; MEDICATI ON STATUS: DISCONTI NUED Not Available Not Available Not Available propranol ol ER 80 mg capsule,2 4 hr,extend ed release TAKE 1 CAPSULE DAILY 05/30 completed TYPE: OTHER; DAYS TO TAKE 30; RX#: [id number] ; MANAGED BY: BRITTON TUBBS; ORDERED BY: BRITTON TUBBS; AUTHORIZ ATION: N; LAST UPDATED BY: BRITTON TUBBS; DO NOT FILL BEFORE DATE: 30 DEC 2009; SENT TO: 0; STATUS: DISCONTI NUED; MEDICATI ON STATUS: DISCONTI NUED Not Available Not Available Not Available codeine 10 mg-guaife nesin 100 mg/5 mL Syrup 2.5- 5 ML PO Q 6 HOURS PRN COUGH 11/11 completed TYPE: ACTIVE; DAYS TO TAKE 7; RX#: [id number] 2; EXPECTED ACTION: COMPLETE ; EXPECTED ACTION DATE: 12 NOV 2011; MANAGED BY: ADAN URBINA; ORDERED BY: ADAN URBINA; AUTHORIZ ATION: N; LAST UPDATED BY: ADAN URBINA; DO NOT FILL BEFORE DATE: 03 MAY 2012; SENT TO: 0; STATUS: PRESCRIB ED,COMPL ETED; MEDICATI ON STATUS: COMPLETE Not Available Not Available Not Available Synthroid 75 mcg tablet TAKE 1 TABLET DAILY. 11/30 completed TYPE: OTHER; DAYS TO TAKE 0; AUTHORIZ ATION: N; LAST UPDATED BY: BRITTON TUBBS; SENT TO: 0; STATUS: RECORD D/C; MEDICATI ON STATUS: DISCONTI NUED Not Available Not Available Not Available gabapenti n 300 mg capsule TAKE ONE CAPSULE BY MOUTH TWICE A DAY active Not Available Not Available No t Available lisinopri l 5 mg tablet TAKE 1 TABLET EVERY DAY 2013 active TYPE: FILLED RX; DAYS TO TAKE 30; EXPECTED ACTION: EVALUATE ; EXPECTED ACTION DATE: 21 NOV 2014; MANAGED BY: KEN THORPE; ORDERED BY: KEN THORPE; AUTHORIZ ATION: N; LAST UPDATED BY: DUKE MCKINNEY; SENT TO: [facility]; STATUS: PRESCRIB ED,EDITE D; MEDICATI ON STATUS: ACTIVE Not Available Not Available Not Available diazepam 10 mg tablet TAKE 1 TABLET 1 HOUR BEFORE APPOINTM ENT 11/21 completed Not Available Not Available Not Available fluticaso ne propionat e 50 mcg/actua tion nasal spray,stoney pension active Not Available Not Available Not Available metformin ER 500 mg tablet,ex tended release 24 hr TAKE TWO TABLETS BY MOUTH AT BEDTIME active Not Available Not Available No t Available amoxicill in 875 mg-potass ium clavulana te 125 mg tablet TAKE 1 TAB PO Q 12 HOURS X 10 DAYS 12/01 completed Not Available Not Available Not Available amoxicill in 500 mg-potass ium clavulana te 125 mg tablet 05/20 completed Not Available Not Available Not Available Promethaz ine W/Codeine 6.25 mg-10 mg/5 mL oral syrup TAKE 1 TEASPOON FUL EVERY 4 HOURS NEEDED. 07/25 completed TYPE: OTHER; DAYS TO TAKE 7; RX#: [id number] ; EXPECTED ACTION: EVALUATE ; EXPECTED ACTION DATE: 26 SEP 2009; MANAGED BY: BRITTON TUBBS; ORDERED BY: BRITTON TUBBS; AUTHORIZ ATION: N; LAST UPDATED BY: KEN THORPE; SENT TO: [facility]; STATUS: RECORD D/C; MEDICATI ON STATUS: DISCONTI NUED Not Available Not Available Not Available Polytrim 0.1 %-10,000 unit/mL eye solution INSTILL 1 DROP IN BOTH EYES EVERY 3 HOURS DAILY. 08/11 completed TYPE: OTHER; DAYS TO TAKE 7; RX#: [id number] ; MANAGED BY: ADAN URBINA; ORDERED BY: ADAN URBINA; AUTHORIZ ATION: N; LAST UPDATED BY: ADAN URBINA; DO NOT FILL BEFORE DATE: 11 AUG 2008; SENT TO: 0; STATUS: DISCONTI NUED; MEDICATI ON STATUS: DISCONTI NUED Not Available Not Available Not Available Strattera 40 mg capsule TAKE 1 CAPSULE DAILY. 08/11 completed TYPE: OTHER; DAYS TO TAKE 30; RX#: [id number] ; MANAGED BY: ADAN URBINA; ORDERED BY: ADAN URBINA; AUTHORIZ ATION: N; LAST UPDATED BY: ADAN URBINA; DO NOT FILL BEFORE DATE: 11 AUG 2008; SENT TO: 0; STATUS: DISCONTI NUED; MEDICATI ON STATUS: DISCONTI NUED Not Available Not Available Not Available Relpax 40 mg tablet TAKE 1 TABLET AT ONSET OF MIGRAINE . MAY REPEAT IN 2 HOURS. MAX 2 DOSES/24 HOURS, NO MORE THAN 3 DAYS PER WEEK.. 11/04 completed TYPE: OTHER; DAYS TO TAKE 0; RX#: [id number] 7; EXPECTED ACTION: EVALUATE ; MANAGED BY: BRITTON TUBBS; ORDERED BY: KEN THORPE; AUTHORIZ ATION: N; LAST UPDATED BY: MOODY CHRISTY; SENT TO: [facility]; STATUS: DISCONTI NUED; MEDICATI ON STATUS: DISCONTI NUED Not Available Not Available Not Available Hydrocodo ne W/Acetami nophen 5 mg-500 mg tablet TAKE 1 TABLET EVERY 6 HOURS NEEDED. 11/04 completed TYPE: OTHER; DAYS TO TAKE 3; RX#: [id number] 5; EXPECTED ACTION: EVALUATE ; EXPECTED ACTION DATE: 14 OCT 2011; MANAGED BY: KEN THORPE; ORDERED BY: KEN THORPE; AUTHORIZ ATION: N; LAST UPDATED BY: MOODY CHRISTY; DO NOT FILL BEFORE DATE: 08 APR 2012; SENT TO: 0; STATUS: DISCONTI NUED; MEDICATI ON STATUS: DISCONTI NUED Not Available Not Available Not Available Ciprodex 0.3 %-0.1 % ear drops,stoney pension ADMINIST ER 4 DROPS INTO EARS 2 (TWO) TIMES A DAY FOR 7 DAYS. active Not Available Not Available No t Available Lyrica 25 mg capsule TAKE 1 CAPSULE DAILY. active Not Available Not Available No t Available Lyrica 50 mg capsule active Not Available Not Available Not Available Lyrica 75 mg capsule active Not Available Not Available Not Available One Touch Ultra Test Strips TEST 4 TIMES DAILY. 2010 active TYPE: FILLED RX; DAYS TO TAKE 25; RX#: [id number]; EXPECTED ACTION: EVALUATE ; EXPECTED ACTION DATE: 02 NOV 2010; MANAGED BY: KEN THORPE; ORDERED BY: KEN THORPE; AUTHORIZ ATION: N; LAST UPDATED BY: KEN THORPE; SENT TO: [facility]; STATUS: PRESCRIB ED; MEDICATI ON STATUS: ACTIVE Not Available Not Available Not Available fenofibra te nanocryst allized 145 mg tablet TAKE 1 TABLET DAILY WITH FOOD. active Not Available Not Available No t Available Vyvanse 30 mg capsule TAKE 1 CAPSULE DAILY IN THE MORNING. 11/04 completed TYPE: OTHER; DAYS TO TAKE 30; RX#: [id number] ; MANAGED BY: ADAN URBINA; ORDERED BY: ADAN URBINA; AUTHORIZ ATION: N; LAST UPDATED BY: MOODY CHRISTY; DO NOT FILL BEFORE DATE: 24 AUG 2009; SENT TO: 0; STATUS: DISCONTI NUED; MEDICATI ON STATUS: DISCONTI NUED Not Available Not Available Not Available FreeStyle Lite Strips USE 1 STRIP TWO TIMES A DAY active Not Available Not Available No t Available Metanx (algal oil) 3 mg-35 mg-2 mg-90.314 mg capsule active Not Available Not Available Not Available Vitals Date Recorded Body height Body weight Body mass index (BMI) Heart rate Oxygen saturation Oxygen saturation in Arterial blood by Pulse oximetry Respiratory rate Body temperature Systolic blood pressure Diastolic blood pressure Provider Name and Address Organization Details Last Updated DateTime 7 173.355 cm 77946.1 g 27.6 kg/m2 103 /min 99 % 99 % 16 /min 97.6 [degF] 122 mm[Hg] 80 mm[Hg] Kaitlin del rio [facility] 7 08:16:00 Date Recorded Body height Body mass index (BMI) Body weight Body temperature Heart rate Respiratory rate Oxygen saturation Oxygen saturation in Arterial blood by Pulse oximetry Systolic blood pressure Diastolic blood pressure Provider Name and Address Organization Details Last Updated DateTime 7 173.355 cm 29.5 kg/m2 30088.0 3 g 98.2 [degF] 106 /min 16 /min 96 % 96 % 142 mm[Hg] 82 mm[Hg] Jane Jared [facility] 7 14:04:51 Date Recorded Respiratory rate Body weight Oxygen saturation Oxygen saturation in Arterial blood by Pulse oximetry Body height Body mass index (BMI) Body temperature Heart rate Systolic blood pressure Diastolic blood pressure Provider Name and Address Organization Details Last Updated DateTime 5 16 /min 44065.4 19198 g 99 % 99 % 172.72 cm 32.4 kg/m2 97.8 [degF] 120 /min 136 mm[Hg] 82 mm[Hg] JEFRY BRAXTON [facility] 5 10:06:24 Date Recorded Heart rate Body mass index (BMI) Body temperature Body height Body weight Respiratory rate Systolic blood pressure Diastolic blood pressure Provider Name and Address Organization Details Last Updated DateTime 6 120 /min 30.8 kg/m2 98.9 [degF] 173.355 cm 76577.8 4348 g 16 /min 136 mm[Hg] 80 mm[Hg] BARNES [facility] 6 08:16:52 Date Recorded Body height Body weight Body mass index (BMI) Heart rate Respiratory rate Body temperature Systolic blood pressure Diastolic blood pressure Provider Name and Address Organization Details Last Updated DateTime 6 173.355 cm 52360.6 8 g 28.6 kg/m2 118 /min 16 /min 98.1 [degF] 142 mm[Hg] 80 mm[Hg] JEFRY BRAXTON [facility] 6 08:13:59 Social History Question Answer Notes LastModified by Organizat ion Details LastModified Time Tobacco Smoking Status Never Smoker BARNESRYAN DAVIDSON [facility] 10/31/2015 08:16:52 What Was The Date Of Your Most Recent Tobacco Screening? 05/20/2017 Information n ot available 01/23/2019 Sex: Unknown Functional Status None recorded. Mental Status None recorded. Family History Relationship Description Onset Age of this Age Resolved Age Notes LastModified by Organization Details LastModified Time Father Diabetes mellitus [email or web address] Not available 01/2016 08:15:29 Mother Hypertensive disorder [email or web address] Not available 01/2016 08:15:39 Medical History Condition Response Past Medical History as per Problem List Y Gynecological History Statement/Question Response Date of Last Pap Smear 07/01/2013 Duration of Flow (days) 5 Flow Moderate Frequency of Cycle (Q days) 26 Date of LMP 11/19/2016 Normal Menses Y Obstetrics History GPAL:G 2 P 0 0 0 2 Type Value Living 2 Total 2 Immunizations Vaccine Type Date Status Note Provider Nam e and Address Organization Details Recorded Time Influenza, split virus, quadrivalent, preservative 7 completed Not Available [facility] 07/25/2019 04:07:40 Influenza, split virus, quadrivalent, PF 5 completed Not Available [facility] 07/18/2019 06:57:33 Influenza, split virus, quadrivalent, preservative 4 completed Not Available [facility] 08/01/2019 02:17:00 Tdap 8 completed Not Available [facility] 07/06/2015 04:28:31 Influenza, split virus, quadrivalent, preservative 6 completed Not Available [facility] 07/25/2019 04:42:04 Past Encounters Encounter ID Performer Location Encounter Start Date Encounter Closed Date Diagnosis/Indication Diagnosis SNOMED-CT Code Diagnosis ICD10 Code Diagnosis Note [id number] [facility] [address] [place] [address] [place] [address] 02/28/2006 00:00:00 [id number] [facility]SUSGIOVANY [facility] [address] [place] [address] [place] [address] 5 08/11/2008 00:00:00 [id number] [facility] [facility] [place] [facility] [address] [facility] [place] [address] 5 12/30/2008 00:00:00 [id number] [facility] [facility] [address] [facility] [place] [address] 5 05/30/2009 00:00:00 [id number] [facility] [facility] [place] [facility] [address] [facility] [place]KEN[place]IE [address] 5 08/08/2009 00:00:00 [id number] [facility] [facility] [place] [facility] [address] [facility] [place] [address] 5 09/19/2009 00:00:00 [id number] [facility] [facility] [place] [facility] [address] [facility] [place] [address] 5 11/29/2009 00:00:00 [id number] [facility] [facility] [place] [facility] [address] [facility] [place] [address] 5 07/25/2010 00:00:00 [id number] [facility] [place] [facility] [address] [place] [address] [place] [address] 5 10/08/2011 00:00:00 [id number] [facility] [facility] [place] [facility] [address] [facility] [place] [address] 5 10/11/2011 00:00:00 [id number] [facility] [facility] [address] [facility] [place] [address] 5 11/02/2011 00:00:00 [id number] [facility] [facility] [place] [facility] [address] [facility] [place] [address] 5 11/05/2011 00:00:00 [id number] [facility] [facility] [place] [facility] [address] [facility] [place] [address] 5 12/01/2012 00:00:00 [id number] [facility] [facility] [place] [facility] [address] [facility] [place] [address] 5 12/15/2012 00:00:00 [id number] [facility] [facility] [address] [facility] [place] [address] 01/29/2013 00:00:00 [id number] [facility] [facility] [place] [facility] [address] [facility] [place] [address] 04/20/2014 00:00:00 [id number] [facility] [facility] [place] [facility] [address] [facility] [place]KEN[place] [address] 5 05/25/2014 00:00:00 [id number] [facility] [facility] [place] [facility] [address] [place] [address] MD MAKENZIE [address] 06/28/2014 00:00:00 [id number] Adan Urbina MD PMG_FFPSS _[facility]* [address] [facility] ,[address] [place] [address] 04/18/2015 09:51:33 04/18/2015 12:28:50 Uncontrolled type 2 diabetes mellitus 343387550 E11.65 Hypothyroidism 50141241 E03.9 Pure hypercholesterolemia 297130394 E78.0 Active or passive immunization 214450844 Z23 [id number] PMG_TAKEM [facility]* [address] [facility],[address] [place] [address] 09/28/2014 00:00:00 [id number] Adan Urbina MD PMG_FFPSS _[facility]* [address] [facility] ,[address] [place] [address] 10/31/2015 08:03:35 10/31/2015 13:19:02 Type 2 diabetes mellitus without complication 213707560 E11.9 Hypothyroidism 78736519 E03.9 Pure hypercholesterolemia 870978629 E78.0 [id number] Adan Urbina MD PMG_FFPSS _[facility]* [address] [facility] ,[address] [place] [address] 06/07/2016 08:06:39 06/07/2016 09:12:25 Hypothyroidism 61737483 E03.9 Diabetes mellitus 389919 09 E11.9 Disorder o f nervous system due to type 2 diabetes mellitus 538973829 E11.40 Influenza vaccine needed [id number] 106 Z23 [id number] Mariangel Thorpe MD [facility] [facility] Office* [id number] 7 11/21/2016 08:08:42 11/28/2016 10:18:30 Disorder of nervous system due to type 2 diabetes mellitus 284627381 E11.40 Well contr olled type 2 diabetes mellitus 349909593 E11.9 Pure hypercholesterolemia 742283562 E78.00 Palpitations [id number] R0 0.2 [id number] Mariangel Thorpe MD [facility] _[facility] Office* [id number] 7 05/20/2017 13:37:13 05/22/2017 11:16:00 Well controlled type 2 diabetes mellitus [id number] E11.9 Administra tion of influenza vaccine 51251559 Z23 Hypothyroidism 43565112 E03.9 Disorder o f nervous system due to type 2 diabetes mellitus 502702886 E11.42 Screening for malignant neoplasm of breast [id number] Z12.31 Gynecologi c examination 37162070 Z01.419 Health Concerns Section Related Observation LastModified by Organization Detai ls LastModified Time None Recorded Concern Status LastModified by Organization Details LastModified Time None Recorded Advance Directives Directive None Recorded Payers Encounter Date Sequence Insurance Name Policy Number Policy Morley Covered Member ID Morley Member ID Guarantor Name 04/18/2015 1 [facility] [place] [employer] - [employer] 105 Robert Carnes Inge [id number] Robert Trice Alcazar 10/31/2015 1 [facility]: [place] [employer] - [employer] 105 Robert Trice Alcazar [id number] Robert Alcazar 06/07/2016 1 [facility]: [place] [employer] 105 Robert Trice Alcazar [id number] Robert Alcazar 11/21/2016 1 [facility]: [place] [employer] - [employer] 105 Robertmanju Alcazar [id number] Robert Alcazar 05/20/2017 1 [facility] [employer] 105 Robert Alcazar [id number] Robert Alcazar Notes Date Note Type Note Provider Name and Address Organization Details Recorded Time 5 text/html HPI DM 2 - on metformin ER; blood sugars have been high; would like refills of freestyle test strips; 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); 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 doctor yet Hypothyroidism - on synthroid; denies side effects; High chol - here for recheck; diet has not been very good; MD [address], [place], [address], [facility] 04/18/2015 12:27:43 6 text/html F/U Diabetes/Pre-diabetesRep orted bypatient.Review finger sticks:am fastin Control:usually well controlled; improved since last visit Compliance:compliant with medications; no side effects from medications; compliant with diet; gets regular/adequate exercise; compliant with follow-up visits Self Care:podiatry visit within the last year Y; self exam of feet Y Associated Symptoms:no increased thirst; no increased urination; no blurred vision; no numbness of feet; no calluses/lesions on feet; no weight gain/loss; no dizziness; no headaches; no erectile dysfunction; no change in libido Complications:no diabetic retinopathy; no diabetic neuropathy; no diabetic nephropathy; no peripheral vascular disease; no coronary artery disease HPI DM 2 - on metformin and glipizide; started low carb, high protein, high fat diet; morning blood sugar < 120 High chol here for recheck Hypothyroidism - on levothyroxine; stable; MD [address], [place], [address], [facility] 10/31/2015 13:17:41 6 text/html DM 2 - on metformin and glipizide; started low carb, high protein, high fat diet; morning blood sugar < 120;metformin currently 2000 mg daily;The Obesity code Gab Barron Moon Huizar High chol here for recheck Neuropathy - on gabapentin 300 mg nightly; sees podiatry Hypothyroidism - on levothyroxine; stable; MD [address], [place], [address], [facility] [employer] [facility] 06/07/2016 09:12:13 7 text/html pt here today for DM,would like to discuss intensive dietary management program and needs physician over sightfeeling well overall; good energy.DM 2 - on metformin and glipizide; started keto diet; morning blood sugar < 120;wondering if she can stop her metforminstarting intermittant fastingNeuropathy - on gabapentin 300 mg nightly; sees podiatry on reg basisHypothyroidism - on levothyroxine; stable;had one episode of palpitations; resolved after a few minutes; no cp; was fasting and not sure she was well hydrated; no cp w/ exertion MD [address], [place], [address], [email or web address] 11/26/2016 18:45:27 7 text/html DM follow up and medication refillflu shotsgyn referral requesteddue for mammo orderhome A1C 5.7%feeling well overall; good energyDM 2 -still doing keto diet; morning blood sugar <130no longer doing intermittent fastingNeuropathy - on gabapentin 300 mg nightly; sees podiatry on reg basisHypothyroidism - on levothyroxine; stable; MD [address], [place], [address], [email or web address] 05/21/2017 22:20:12 OBGyn Episode No OBEpisode recorded.
--- OUTSIDE RECORDS SUMMARY | 2024-09-15 03:12 | XMS_ITS | Clinical Summary ---
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 Gender Identity Not on file Sexual Orientation [...] 83.5 kg (184 lb) 07/23/2023 1:12 PM ART OBJECTS SUPERVISOR Height 172.7 cm (5' 8) 07/23/2023 1:12 PM ART OBJECTS SUPERVISOR Body Mass Index 27.98 07/23/2023 1:12 PM ART OBJECTS SUPERVISOR Plan of Treatment Health Maintenance Due Date [...] Completed 02/03/2020 Medical Devices Implanted Type Area System Manager Device Identifier Shelf Expiration Date Model / Serial / Lot Stent Pancreatic [id number] Geenen Sof-Flex No Flap - [id number] Implanted:Qty: 1 on 07/23/2023 by Nick Elizabeth MD at [facility] N/A: Pancreas [facility] 12/26/2025 GPSOS-SF- 5-7 / / [id number] Description:Pancreatic duct Procedures Procedure Name Priority Date/Time Associated Diagnosis Comments LIPID PANEL W REFLEX MEASURED LDL Routine 05/01/2021 3:18 PM CDT Screening cholesterol level from Last 3 Months or Most Recently Relevant to Health Maintenance Results * (ABNORMAL) LIPID PANEL W REFLEX MEASURED LDL (05/01/2021 3:18 PM CDT) CHOLESTEROL,TOTAL 141 100 - 199 mg/dL 05/02/2021 5:17 PM CDT [facility] TRIGLYCERIDES 156(H) <150 mg/dL 05/02/2021 5:17 PM CDT [facility] HDL CHOLESTEROL 39(L) >40 mg/dL 5:17 PM CDT [facility] NON-HDL CHOLESTEROL 102 <145 mg/dl 05/02/2021 5:17 PM CDT [facility] CHOL/HDL RATIO 3.62 <4.50 05/02/2021 5:17 PM CDT [facility] LDL CHOLESTEROL 71 <=130 mg/dL 05/02/2021 5:17 PM CDT [facility] VLDL CHOLESTEROL 31(H) <=30 mg/dL 05/02/2021 5:17 PM CDT [facility] PROVIDER ORDERED STATUS RANDOM 05/02/2021 5:17 PM CDT [facility] Blood BLOOD SPECIMEN / Unknown Venipuncture / Unknown 05/01/2021 3:18 PM CDT 05/01/2021 3:18 PM CDT us Marlene Calderón DO CHEMISTRY Final Resul t [facility] [address] [place] [address], [facility] [address] [place] [address], from Last 3 Months or Most Recently Relevant to Health Maintenance Insurance [employer] Advance Directives * Full Code [...] Preferences, Provider to review later Care Teams Appraisal Manager Relationship Specialty Start Date End Date Ramesh Castillo PA-C [address] [place] [address] PCP - General Physician Distribution Manager 07/26/19
[2024-09-15 03:16] VITALS: BP 126/70; PULSE 85; RESP 18; TEMP 36.8; O2SAT 99
[2024-09-15 03:17] VITALS: BP 126/70; PULSE 85; RESP 18; TEMP 36.8
== END 2024-09-15 03:17 | disposition home or self-care (01) ==
LOC: ED 03:09
PROVIDERS: Emergency Provider Family Medicine; PCP Physician Assistant Medical
DX: L76.22 Postprocedural hemorrhage of skin and subcutaneous tissue following other procedure (principal)
CPT/HCPCS: 99282; 99283

== ENCOUNTER 2025-06-04 08:18 | Outpatient (CLI) | payer BC, SELFPAY ==
--- NOTE | 2025-06-04 08:15 | CRLHL7_ITS ---
For Patients: As a result of the Century Cures Act, medical imaging exams and procedure reports are released immediately into your electronic medical record. You may view this report before your referring provider. If you have questions, please contact your health care provider. INDICATION: BILATERAL SCREENING MAMMOGRAM, ASYMPTOMATIC 50 Y/O FEMALE COMPARISON: 09/05/2023 TECHNIQUE: Digital mammogram in CC and MLO projections including computer-aided detection (CAD) and tomosynthesis. BREAST COMPOSITION: There are scattered areas of fibroglandular density. FINDINGS: No suspicious findings. ASSESSMENT: BI-RADS 2 Benign RECOMMENDATION: Annual screening mammogram. A lay language report of this examination will be provided to the patient. Dictated by: Dilip Jones MD @ 06/04/2025 10:11:43 (Electronically Signed)
== END 2025-06-04 08:19 | disposition home or self-care (01) ==
LOC: MAMMO 08:18
PROVIDERS: PCP Physician Assistant Medical; Visit Provider Physician Assistant Medical
DX: Z12.31 Encounter for screening mammogram for malignant neoplasm of breast (principal)
CPT/HCPCS: 77063; 77067